=== PATIENT | female | born 1955 | race Caucasian/White ===

== ENCOUNTER 2022-06-18 14:47 | Outpatient (RCR) | payer MEDICARE, OTHER, SELFPAY ==
--- OUTSIDE RECORDS SUMMARY | 2022-03-04 13:12 | XMS_ITS | Encounter Summary ---
:1955 Author Organization [facility] Address [address] [place] [address] Care Team Providers Name Role Phone Unavailable Primary Care Provider Unavailable Reason for Referral Outpatient (Routine) - Closed Specialty Diagnoses / Procedures Referred By Contact Refer red To Contact Rheumatology Diagnoses Arthritis Rheumatoid (HCC) High Risk Medication [facility] 200 [place] [address] Referral ID Status Reason Start Date Expiration Date Visits Requ ested Visits Authorized [id number] Closed 07/06/2021 07/06/2022 1 1 RVISOR STATEMENT CLERKS Reason for Visit Outpatient (Routine) - Closed Specialty Diagnoses / Procedures Referred By Contact Refer red To Contact Rheumatology Diagnoses Arthritis Rheumatoid (HCC) High Risk Medication [facility]ung [facility] 200 [place], [place] [phone] Referral ID Status Reason Start Date Expiration Date Visits Requ ested Visits Authorized [id number] Closed 04/05/2021 04/05/2022 1 1 Encounter Details Date Type Department Care Team Description 07/06/2021 Office Visit Division of Rheumatology Tosha Leung, Arthritis Rheumatoid (HCC); in [facility] ADITHYA, C.N.PMerline, High Risk Medication [address] [facility] [place], [place] [phone] [facility] [phone] [place] [address] Social History Tobacco Use Types Packs/Day Years Used Date Smoking Tobacco: Former Cigarettes 0.8 06/1971 - 07/03/1999 Smokeless Tobacco: Never Alcohol Use Standard Drinks/Week Comments Yes 2 (1 standard drink = 0.6 oz pure alcoho l) 2 drinks per week. Alcohol Habits Answer Date Recorded How often do you have a drink containing alcohol? Monthly or less 03/03/2022 How many drinks containing alcohol do you have on a 1 or 2 03/03/2022 typical day when you are drinking? How often do you have six or more drinks on one Never 03/03/2022 occasion? Comment: 2 drinks per week. 01/03/2021 Social Isolation Answer Date Recorded In a typical week, how many times do you More than three alex es a week 03/03/2022 talk on the phone with family, friends, or neighbors? How often do you get together with friends More than three t imes a week 03/03/2022 or relatives? How often do you attend latter-day or 1 to 4 times per year 02/21 holiness services? Do you belong to any clubs or No 03/03/2022 organizations such as latter-day groups, unions, fraternal or athletic groups, or school groups? How often do you attend meetings of the Never 03/03/2022 clubs or organizations you belong to? Are you now , , , 03/03/2022 , never or living with a partner? Physical Activity Answer Date Recorded On average, how many days per week do you engage in moderate to 0 days 03/03/2022 strenuous exercise (like walking fast, running, jogging, dancing, swimming, biking, or other activities that cause a light or heavy sweat)? On average, how many minutes do you engage in exercise at th is 0 min 03/03/2022 level? Stress Answer Date Recorded Do you feel stress - tense, restless, nervous, or Only a lit tle 03/03/2022 anxious, or unable to sleep at night because your mind is troubled all the time - these days? Financial Resource Strain Answer Date Recorded How hard is it for you to pay for the very basics like Not h rossana at all 03/03/2022 food, housing, medical care, and heating? Intimate Partner Violence Answer Date Recorded Within the last year, have you been afraid of your partner o r No 03/03/2022 ex-partner? Within the last year, have you been humiliated or emotionall y No 03/03/2022 abused in other ways by your partner or ex-partner? Within the last year, have you been kicked, hit, slapped, or No 03/03/2022 otherwise physically hurt by your partner or ex-partner? Within the last year, have you been raped or forced to have any No 03/03/2022 kind of sexual activity by your partner or ex-partner? Food Insecurity Answer Date Recorded Within the past 12 months, you worried that your food would Never true 03/03/2022 run out before you got money to buy more. Within the past 12 months, the food you bought just didn't N ever true 03/03/2022 last and you didn't have money to get more. Transportation Needs Answer Date Recorded In the past 12 months, has lack of transportation kept you f rom No 03/03/2022 medical appointments or from getting medications? In the past 12 months, has lack of transportation kept you f rom No 03/03/2022 meetings, work, or getting things needed for daily living? Housing Stability Answer Date Recorded In the last 12 months, was there a time when you were not ab le No 03/03/2022 to pay the mortgage or rent on time? In the last 12 months, how many places have you lived? 1 03/03/2022 In the last 12 months, was there a time when you did not hav e a No 03/03/[address] or slept in a fpc (including now)? Education Answer Date Recorded What is the highest level of school you have completed or 12 th grade 04/07/2020 the highest degree you have received? Sex Assigned at Date Recorded Female 03/31/2021 8:17 PM CDT documented as of this encounter Last Filed Vital Signs Vital Sign Reading Time Taken Comments Blood Pressure 128/85 07/06/2021 9:13 AM SUPERVISOR STATEMENT CLERKS Pulse 75 07/06/2021 9:13 AM SUPERVISOR STATEMENT CLERKS Temperature 36.3 ??C (97.4 ??F) 07/06/2021 9:13 AM SUPERVISOR STATEMENT CLERKS Respiratory Rate - - Oxygen Saturation - - Inhaled Oxygen Concentration - - Weight 114 kg (251 lb 7 oz) 07/06/2021 9:13 AM SUPERVISOR STATEMENT CLERKS Height 177.8 cm (5' 10) 07/06/2021 9:13 AM SUPERVISOR STATEMENT CLERKS Body Mass Index 36.08 07/06/2021 9:13 AM SUPERVISOR STATEMENT CLERKS documented in this encounter Patient Instructions Patient InstructionsTosha Leung APRN, C.N.P., D.N.P. - 07/06/2021 9:30 AM CST Continue methotrexate 10 tablets weekly. Continue folic acid 1 tablet daily. New medication: Plaquenil (hydroxychloroquine) 2 tablets daily. Voltaren gel as needed. Follow up in 3 months. RVISOR STATEMENT CLERKS documented in this encounter Progress Notes Tosha Leung APRN, C.N.P., D.N.P. - 07/06/2021 9:30 AM CST SUBJECTIVE CHIEF COMPLAINT / REASON FOR VISIT Hilda Long is a 66 y.o. female who presents for follow up of rheumatoid arthritis. HISTORY OF PRESENT ILLNESS Mrs. Long was evaluated initially by Dr. Heard in March 2020 for seropositive rheumatoid arthritis. She was started on methotrexate and followed with our nursing team and the dose was gradually increased. I met her for the first time in December 2020 at which time she was doing quite well, but had been unable to taper off prednisone. I recommended maximizing methotrexate to 25 mg weekly and then trying to taper prednisone again. In March 2021, she was tolerating methotrexate 25 mg weekly. She was feeling improved. She had been able to taper off prednisone. CRP remained elevated, but we opted to not escalate treatment. She returns today for follow up. She continues to report that she feels improved overall. She is most bothered by hands and feet. Hands are stiff for the morning. 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 Bilateral, lateral hips are also bothersome at times. CRP remains elevated. She feels at times her hands are swollen as it is difficult to make a complete fist. She wonders about using Voltaren gel again as it was helpful for her hands in the past and she would like to do some crocheting again. She also has been thinking about joining the local health center that has a pool. She otherwise has been healthy and denies recent infection. She has received COVID booster. Social history: ??She lives with her who farms. 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 ??She is a previous smoker quit in 1998. She smoked for about 20 years. ??Drinks alcohol socially. Previous Reports Reviewed:lab reports, office notes and outside records The following portions of the patient's history were reviewed and updated as appropriate: allergies,current medications, family history, medical history, social history, surgical history and problem list. REVIEW OF SYSTEMS Pertinent positives and negatives as documented in the above history of present illness. Constitutional: Positive for fatigue. Eyes: Positive for visual problems. ENT: Positive for sinus congestion. Respiratory: Positive for dyspnea. Musculoskeletal: Positive for muscle pain/stiffness. Neurological: Positive for numbness or shooting pain in hands, arms, legs, or feet. The following systems were negative: Skin, CV, GI, , Hematologic, Psych OBJECTIVE PHYSICAL EXAMINATION Vitals reviewed. Constitutional Appearance: She is well-developed. Eyes Conjunctiva/sclera: Conjunctivae normal. Pupils: Pupils are equal, round, and reactive to light. Cardiovascular Rate and Rhythm: Normal rate and regular rhythm. Heart sounds: Normal heart sounds. Pulmonary Effort: Pulmonary effort is normal. Breath sounds: Normal breath sounds. Musculoskeletal Cervical back: Normal range of motion and neck supple. Comments: Right 3rd PIP is swollen, but non-tender. No other joint tenderness or synovitis. Range of motion of the extremities are within functional limits bilaterally. Lymphadenopathy Cervical: No cervical adenopathy. Skin General: Skin is warm and dry. Neurological Mental Status: She is alert and oriented to person, place, and time. Lab: Recent labs were completed locally and include a stable CBC differential, creatinine, AST. CRP is elevated at 16. ASSESSMENT / PLAN #1 Arthritis Rheumatoid (HCC) Ms. Reuvers is improved, however she does have some synovitis present in 1 joint on exam. She describes prolonged morning stiffness. CRP is elevated. We discussed the options of transitioning methotrexate to subcutaneous administration, however she would prefer to avoid that if possible. I would recommend a trial of hydroxychloroquine 400 mg daily. We discussed risks and benefits. She has an eye exam scheduled this spring she believes and will complete baseline testing with that with her local freelance writer and have those results sent to us. She may also use Voltaren gel topically to joints as needed for pain up to 4 times per day. I will plan to see her back in 3 months for reassessment. She will contact me sooner with any questions or concerns. #2 High Risk Medication Recommend every 3 months CBC with differential, creatinine, AST while taking methotrexate. We will recheck these when she returns for follow-up. I answered the patient's questions to the best of my ability. The patient seemed pleased with our interaction. If she should have any additional questions or concerns, I have asked that she contact us at that time. PATIENT EDUCATION Ready to learn, no apparent learning barriers were identified; learning preferences include listening. Explained diagnosis and treatment plan; patient expressed understanding of the content. RVISOR STATEMENT CLERKS documented in this encounter Plan of Treatment Upcoming Encounters Date Type Specialty Care Team Description 03/06/2022 Clinical Communication Admitting/Central Scheduling 03/08/2022 Office Visit Rheumatology Tosha Leung APRN, C.N.P., D.N.P. [address] [place] [phone] Scheduled Referrals Name Type Priority Associated Order Schedule Diagnoses Rheumatology office Outpatient Referral Routine Arthritis E xpected: visit (clinic) Rheumatoid (HCC) 10/04/2021 High Risk (Approximate), Medication Expires: 10/04/2022 documented as of this encounter Visit Diagnoses Diagnosis Arthritis Rheumatoid (HCC) High Risk Medication documented in this encounter
--- OUTSIDE RECORDS SUMMARY | 2022-03-04 13:12 | XMS_ITS | Clinical Summary ---
:1955 Author Organization [facility] Address [address] [place] [address] Care Team Providers Name Role Phone Unavailable Primary Care Provider Unavailable Source Comments Patient records contain information from all sites at [facility]. For routine questions regarding patient records, call [phone] during business hours, M-F 8:00 AM - 5:00 PM Central Time. Record requests for emergency care only can be directed to [phone] at any time.[facility] Allergies No known active allergies Medications Medication Sig Dispensed Refills Start Date End Date Status lisinopriL Take 20 mg by 0 04/05/2020 Acti ve (PRINIVIL,ZESTRIL) 20 mg mouth daily. tablet metoprolol succinate Take 25 mg by 0 04/05/2020 Active (TOPROL-XL) 25 mg 24 hr mouth daily. tablet simvastatin (ZOCOR) 10 Take 10 mg by 0 03/31/2020 Active mg tablet mouth at bedtime. latanoprost (XALATAN) Administer 1 0 07/01/2020 Active 0.005 % ophthalmic drop into the solution right eye every evening. diclofenac sodium Apply 4 g 50 g 3 07/06/2021 A ctive (Voltaren) 1 % gel topically 4 (four) times a day. Apply to painful joints as needed. sulfaSALAzine Take 2 tablets 120 tablet 5 10/04/2021 Active (AZULFIDINE EN-TABS) 500 (1,000 mg total) mg EC tabletIndications: by mouth 2 (two) Arthritis Rheumatoid times a day. (HCC) hydrOXYchloroQUINE Take 2 tablets 180 tablet 1 12/06/2021 Active (PLAQUENIL) 200 mg (400 mg total) tablet by mouth daily. folic acid 1 mg Take 1 tablet 90 tablet 3 12/06/2021 Active tabletIndications: (1,000 mcg Arthritis Rheumatoid total) by mouth ([facility]) daily. methotrexate 2.5 mg Take 10 tablets 120 tablet 1 12/06/2021 Active tabletIndications: (25 mg total) by 2 Arthritis Rheumatoid mouth once a ([facility]) week. Active Problems Problem Noted Date Arthritis Rheumatoid 07/19/2020 Monitoring For Therapeutic Drug Therapy 07/19/2020 Encounters Date Type Specialty Care Team Description 01/14/2022 Clinical Communication Rheumatology Tosha Leung cassandra ADITHYA Mccoy, C.N.P., D.N.P. 12/06/2021 Office Visit Rheumatology Tosha Leung High Risk Medic ation (Primary Dx); EADITHYA, Arthritis Rheum atoid ([facility]) C.N.P., D.N.P. 12/05/2021 Clinical Communication Admitting/Central Scheduling 12/03/2021 Clinical Communication Rheumatology Tosha Leung onitoring EADITHYA, (Collected 12/03) C.N.P., D.N.P. from Last 3 Months Immunizations Name Administration Dates Next Due Influenza, Quadrivalent, Adjuvanted, Preservative Free 03/28 Family History Medical History Relation Name Comments Clotting disorder Brother Manolo Finger Kidney cancer Father William Finger Prostate cancer Father William Finger Skin cancer Father William Finger Rheum arthritis Maternal Grandmother Susan Melendez Breast cancer Mother Amanda Finger Diabetes Mother Amanda Finger Diabetes Sister Vanessa Mann Obesity Sister Vanessa Mann Relation Name Status Comments Brother Manolo Finger Father William Finger Maternal Grandmother Susan Leayhl Mother Amanda Finger Sister Vanessa Mann Social History Tobacco Use Types Packs/Day Years [...] or relatives? How often do you attend hoahaoism or 1 to 4 times per year 02/21 cheondoism services? Do you belong to any clubs or No 03/03/2022 organizations such as hoahaoism groups, [employer], [employer] or athletic groups, or school groups? How [...] place to sleep or slept in a custodial (including now)? Education Answer Date Recorded What is the highest level of school you have completed or 12 th grade 04/07/2020 the highest degree you have received? Sex Assigned at Date Recorded Female 03/31/2021 8:17 PM CDT Last Filed Vital Signs Vital Sign Reading Time Taken Comments Blood Pressure 115/80 12/06/2021 11:06 AM CDT Pulse 90 12/06/2021 11:06 AM CDT Temperature 36.4 ??C (97.5 ??F) 12/06/2021 11:06 AM CDT Respiratory Rate - - Oxygen Saturation - - Inhaled Oxygen Concentration - - Weight 112 kg (247 lb 12.8 oz) 12/06/2021 11:06 AM CDT Height 177.8 cm (5' 10) 07/06/2021 9:13 AM CONTINUITY CLERK Body Mass Index 35.56 07/06/2021 9:13 AM CONTINUITY CLERK Plan of Treatment Upcoming Encounters Date Type Specialty Care Team Description 03/06/2022 Clinical Communication Admitting/Central Scheduling 03/08/2022 Office Visit Rheumatology Tosha Leung APRN, C.N.P., D.N.P. [address] [place] [phone] Health Maintenance Due Date Last Done Comments Bone Density Scan 1955 (Osteoporosis Screen) CT Colonography 1955 Cervical Cancer Screening 1955 Cologuard 1955 Colonoscopy 1955 Colorectal Cancer 1955 Surveillance Fasting Glucose for 1955 Diabetes Screening Mammogram 1955 Potassium Level 1955 Sodium Level 1955 COVID-19 Vaccine (4 - 05/08/2021 02/13/2021, 10/10/2020, Booster for Pfizer series) 09/19/2020 Depression Screening 2021 (Annual PHQ-2) Influenza Vaccine (#1) 2022 03/28/2021, 03/28/2021, 03/27/2020, Additional history exists DTaP,Tdap,and Td Vaccines 04/23/2022 04/23/2012 (2 - Td or Tdap) Creatinine Level 12/03/2022 12/03/2021, 11/07/2021, 10/01/2021, Additional history exists Pneumococcal vaccine (65+ 01/24/2023 01/24/2022, 01/20/2018 years) (3 - PPSV23 or PCV20) Zoster Vaccines Completed 12/08/2018, 01/20/2018 Fall Risk Screen (Annual) Completed 07/06/2021 HPV Vaccines Aged Out No longer eligib le based on patient 's age to complete this topic Procedures Procedure Name Priority Date/Time Associated Diagnosis Comme nts ASPARTATE AMINOTRANSFERASE Routine 12/03/2021 R esults for this (AST), S/P procedure are i n the results section. CREATININE WITH EGFR, S/P Routine 12/03/2021 Re sults for this procedure are i n the results section. CBC WITH DIFFERENTIAL, B Routine 12/03/2021 Res ults for this procedure are i n the results section. from Last 3 Months Results CBC with Differential, Blood (12/03/2021) P athologist Signature EXT Platelet 263 150 - 450 Count EXT Neutrophils 3.89 1.7 - 7 EXT Hemoglobin 13.1 12 - 15.5 EXT White Blood 5.9 5.0 - 10.0 Cell (WBC) Count Specimen (Source) Anatomical Location Collection Method / Collectio n Time Received Time / Laterality Volume Blood (Blood, Venous) Narrative This result has an attachment that is no t available. Historical Provider LAB BLOOD ADD-ON AST (Aspartate Aminotransferase) (12/03/2021) athologist Signature EXT AST 30 12 - 35 Specimen (Source) Anatomical Location Collection Method / Collectio n Time Received Time / Laterality Volume Blood (Blood, Venous) Historical Provider LAB BLOOD ADD-ON Creatinine with Estimated GFR (12/03/2021) athologist Signature EXT Creatinine 0.7 0.5 - 1.5 mg/dL Specimen (Source) Anatomical Location Collection Method / Collectio n Time Received Time / Laterality Volume Blood (Blood, Venous) Narrative This result has an attachment that is no t available. Historical Provider LAB BLOOD ADD-ON from Last 3 Months Insurance Payer Benefit Plan / Subscriber ID Effective Phone Address T ype Group Dates MEDICARE MEDICARE A AND [id number] 2021-Pres [id number] [place] [address] MEDICA MEDICA PRIME [id number] 2021-Prese [phone] [address] [employer] [address] [place] [address] (Home) [place] [phone]
--- OUTSIDE RECORDS SUMMARY | 2022-03-04 13:12 | XMS_ITS | Encounter Summary ---
:1955 Author Organization [facility] Address [address] [place] [address] Care Team Providers Name Role Phone Unavailable Primary Care Provider Unavailable Reason for Visit Reason Comments Lab Monitoring Collected 11/07/21 Encounter Details Date Type Department Care Team Description 11/07/2021 Clinical Communication Division of Tosha Leung onitoring Rheumatology in , DIRECTOR PRODUCT MANAGEMENT, (Collected ) [place], [place] C.N.P., [address] [facility] [place], [place] [address] [phone] [place] [address] Social History Tobacco Use Types Packs/Day Years [...] or relatives? How often do you attend adventist or 1 to 4 times per year 02/21 zoroastrianism services? Do you belong to any clubs or No 03/03/2022 organizations such as adventist groups, unions, fraternal or athletic groups, or [...] place to sleep or slept in a long-term (including now)? Education Answer Date Recorded What is the highest level of school you have completed or 12 th grade 04/07/2020 the highest degree you have received? Sex Assigned at Date Recorded Female 03/31/2021 8:17 PM CDT documented as of this encounter Miscellaneous Notes Telephone Encounter - Gisela Holder, L.P.N. - 11/09/2021 9:11 AM CDT ASSESSMENT Rheumatology monitoring labs completed at an external lab on 11/07/2021 were reviewed per outside labreference ranges. All monitored labs are within the reference range.. Labs reviewed: hemoglobin, leukocytes, platelets, absolute neutrophil count, AST and creatinine External labs were entered into Labs Tab and sent for scanning. PLAN Patient to continue with current plan of care. documented in this encounter Plan of Treatment Upcoming Encounters Date Type Specialty Care Team Description 03/06/2022 Clinical Communication Admitting/Central Scheduling 03/08/2022 Office Visit Rheumatology Tosha Leung, DIRECTOR PRODUCT MANAGEMENT, C.N.P., D.N.P. [address] [place] [phone] documented as of this encounter Procedures Procedure Name Priority Date/Time Associated Diagnosis Comme nts CBC WITH DIFFERENTIAL, B Routine 11/07/2021 Res ults for this procedure are i n the results section. ASPARTATE AMINOTRANSFERASE Routine 11/07/2021 R esults for this (AST), S/P procedure are i n the results section. CREATININE WITH EGFR, S/P Routine 11/07/2021 Re sults for this procedure are i n the results section. documented in this encounter Results AST (Aspartate Aminotransferase) (11/07/2021) athologist Signature EXT AST 24 12 - 35 [facility] Specimen (Source) Anatomical Location Collection Method / Collectio n Time Received Time / Laterality Volume Blood (Blood, Venous) Shelli Madden APRNN.P., D.N.P. LAB BLOOD ADD-ON Performing Organization Address [facility] [address] [place] [address] Creatinine with Estimated GFR (11/07/2021) athologist Signature EXT Creatinine 0.6 0.5 - 1.5 [place] mg/dL [facility] Specimen (Source) Anatomical Location Collection Method / Collectio n Time Received Time / Laterality Volume Blood (Blood, Venous) Narrative This result has an attachment that is no t available. Shelli Madden APRNN.P., D.N.P. LAB BLOOD ADD-ON Performing Organization Address [facility] [address] [place] [address] CBC with Differential, Blood (11/07/2021) athologist Signature EXT Platelet 236 150 - 450 [place] Count [facility] EXT Neutrophils 3.51 1.7 - 7 [facility] EXT Hemoglobin 13 12 - 15.5 [facility] EXT White Blood 5.5 5.0 - 10.0 [place] Cell (WBC) Count [facility] Specimen (Source) Anatomical Location Collection Method / Collectio n Time Received Time / Laterality Volume Blood (Blood, Venous) Narrative This result has an attachment that is no t available. Gadiel Madden APRN.N.P., D.N.P. LAB BLOOD ADD-ON Performing Organization Address [facility] [address] [place] [address], [place] [address] documented in this encounter Visit Diagnoses Not on filedocumented in this encounter
--- OUTSIDE RECORDS SUMMARY | 2022-03-04 13:12 | XMS_ITS | Encounter Summary ---
:1955 Author Organization [facility] Address [address] [place] [address] Care Team Providers Name Role Phone Unavailable Primary Care Provider Unavailable Reason for Visit Reason Comments Med Refill Encounter Details Date Type Department Care Team Description 10/02/2021 Refill Division of Rheumatology in Tosha Leung APRN, Med Refill [place], [place] C.N.P., D.N.P. [address] [facility] [address] [place] [address] [place], [place] [phone] (Wo rk) Social History Tobacco Use Types Packs/Day Years [...] or relatives? How often do you attend latter day or 1 to 4 times per year 02/21 scientologist services? Do you belong to any clubs or No 03/03/2022 organizations such as latter day groups, unions, fraternal or athletic groups, or [...] place to sleep or slept in a snf (including now)? Education Answer Date Recorded What is the highest level of school you have completed or 12 th grade 04/07/2020 the highest degree you have received? Sex Assigned at Date Recorded Female 03/31/2021 8:17 PM CDT documented as of this encounter Miscellaneous Notes Telephone Encounter - Joan Diaz R.N. - 10/09/2021 1:23 PM CDT Prescription renewal request for folic acid received from pharmacy. HISTORY OF PRESENT ILLNESS Last Rheum visit: 10/04/2021 with Tosha Leung APRN, CNP Future office visit: 12/06/2021 Last monitoring labs/eye exam: Not required. Prescription request matches current plan of care. Prescription request matches a current prescription in the Medication List. Exclusion criteria: None ASSESSMENT/PLAN Prescription request renewed per nursing protocol. documented in this encounter Plan of Treatment Upcoming Encounters Date Type Specialty Care Team Description 03/06/2022 Clinical Communication Admitting/Central Scheduling 03/08/2022 Office Visit Rheumatology Tosha Leung APRN, C.N.P., D.N.P. [address] [place] [address] documented as of this encounter Visit Diagnoses Diagnosis Arthritis Rheumatoid (HCC) - Primary documented in this encounter
--- OUTSIDE RECORDS SUMMARY | 2022-03-04 13:12 | XMS_ITS | Encounter Summary ---
:1955 Author Organization [facility] Address [address] [place] [address] Care Team Providers Name Role Phone Unavailable Primary Care Provider Unavailable Reason for Visit Reason Comments Lab Monitoring Collected 10/01/21 Encounter Details Date Type Department Care Team Description 10/02/2021 Clinical Communication Division of Tosha Leung onitoring Rheumatology in , FOOD MOBILE DRIVER, (Collected ) [place], [place] C.N.P., [address] [facility] D.N.P. [place], [place] [address] [phone] [place] [address] Social History Tobacco Use Types Packs/Day Years [...] or relatives? How often do you attend restorationism or 1 to 4 times per year 02/21 uatsdin services? Do you belong to any clubs or No 03/03/2022 organizations such as restorationism groups, unions, fraternal or athletic groups, or [...] place to sleep or slept in a care home (including now)? Education Answer Date Recorded What is the highest level of school you have completed or 12 th grade 04/07/2020 the highest degree you have received? Sex Assigned at Date Recorded Female 03/31/2021 8:17 PM CDT documented as of this encounter Miscellaneous Notes Telephone Encounter - Balbir Chilel R.N. - 10/04/2021 9:20 AM CDT ASSESSMENT Rheumatology monitoring labs completed on 10/01/21 were reviewed per Rheumatology division parameters. Labs reviewed: absolute neutrophil count, AST, creatinine, hemoglobin, leukocytes, platelets, ESR (Sed Rate), CRP (C-Reactive Protein) Labs outside parameters: CRP (C-reactive protein) External labs were entered into Labs Tab and sent for scanning. PLAN Provider notified of abnormal lab(s). documented in this encounter Plan of Treatment Upcoming Encounters Date Type Specialty Care Team Description 03/06/2022 Clinical Communication Admitting/Central Scheduling 03/08/2022 Office Visit Rheumatology Tosha Leung, ADITHYA, C.N.P., D.N.P. [address] [place] [address] documented as of this encounter Procedures Procedure Name Priority Date/Time Associated Diagnosis Comme nts SEDIMENTATION RATE, B Routine 10/01/2021 Result s for this procedure are i n the results section. CBC WITH DIFFERENTIAL, B Routine 10/01/2021 Res ults for this procedure are i n the results section. C-REACTIVE PROTEIN (CRP), Routine 10/01/2021 Re sults for this S/P procedure are i n the results section. ASPARTATE AMINOTRANSFERASE Routine 10/01/2021 R esults for this (AST), S/P procedure are i n the results section. CREATININE WITH EGFR, S/P Routine 10/01/2021 Re sults for this procedure are i n the results section. documented in this encounter Results (ABNORMAL) CRP (C-Reactive Protein) (10/01/2021) [facility] gist Method Time Signature EXT C-Reactive 13.0 (A) 5.0 - 10.0 [facility] LABORATORY Specimen (Source) Anatomical Location Collection Method / Collectio n Time Received Time / Laterality Volume Blood (Blood, Venous) Gadiel Madden APRN.N.P., D.N.P. LAB BLOOD ADD-ON Performing Organization Address City/State/[facility] Code Phon e Number [facility] [address] [place] [address] AST (Aspartate Aminotransferase) (10/01/2021) athologist Signature EXT AST 23 12 - 35 [facility] Specimen (Source) Anatomical Location Collection Method / Collectio n Time Received Time / Laterality Volume Blood (Blood, Venous) Gadiel Madden APRN.N.P., D.N.P. LAB BLOOD ADD-ON Performing Organization Address City/State/[facility] Code Phon e Number [facility] [address] [place] [address] Creatinine with Estimated GFR (10/01/2021) athologist Signature EXT Creatinine 0.7 0.5 - 1.5 [place] mg/dL [facility] Specimen (Source) Anatomical Location Collection Method / Collectio n Time Received Time / Laterality Volume Blood (Blood, Venous) Gadiel Madden APRN.N.P., D.N.P. LAB BLOOD ADD-ON Performing Organization Address City/State/ZIP Code Phon e Number [facility] [address] [place] [address] Sedimentation Rate (10/01/2021) Patholo gist Method Time Signature EXT Sedimentation 7 2 - 20 [facility] LABORATORY Specimen (Source) Anatomical Location Collection Method / Collectio n Time Received Time / Laterality Volume Blood (Blood, Venous) Gadiel Madden APRN.N.P., D.N.P. LAB BLOOD ADD-ON Performing Organization Address City/[facility] Number [facility] [address] [place] [address] CBC with Differential, Blood (10/01/2021) P athologist Signature EXT Platelet 272 150 - 450 [facility] LABORATORY EXT Neutrophils 4.61 1.7 - 7 [facility] EXT Hemoglobin 14.1 12 - 15.5 [facility] EXT White Blood 7.1 5.0 - 10.0 [place] Cell (WBC) Count [facility] Specimen (Source) Anatomical Location Collection Method / Collectio n Time Received Time / Laterality Volume Blood (Blood, Venous) Narrative This result has an attachment that is no t available. Gadiel Madden APRN.N.P., D.N.P. LAB BLOOD ADD-ON Performing Organization Address City/[facility] e Number [facility] [address] [place] [address] documented in this encounter Visit Diagnoses Not on filedocumented in this encounter
--- OUTSIDE RECORDS SUMMARY | 2022-03-04 13:12 | XMS_ITS | Encounter Summary ---
:1955 Author Organization [facility] Address [address] [place] [address] Care Team Providers Name Role Phone Unavailable Primary Care Provider Unavailable Reason for Visit Reason Comments Pre-visit Intake Left message Encounter Details Date Type Department Care Team Description 10/03/2021 Clinical Communication Division of Tosha Leung Pre-v isit Intake Rheumatology in E, PULP MILL OPERATOR, (Left messag e) [place], [place] C.N.P., [address] [facility] D.N.P. [place], [place] [address] [facility] [phone] [place] [address] Social History Tobacco Use Types Packs/Day Years [...] or relatives? How often do you attend christian or 1 to 4 times per year 02/21 caodaism services? Do you belong to any clubs or No 03/03/2022 organizations such as christian groups, unions, fraternal or athletic groups, or [...] place to sleep or slept in a retirement (including now)? Education Answer Date Recorded What is the highest level of school you have completed or 12 th grade 04/07/2020 the highest degree you have received? Sex Assigned at Date Recorded Female 03/31/2021 8:17 PM CDT documented as of this encounter Plan of Treatment Upcoming Encounters Date Type Specialty Care Team Description 03/06/2022 Clinical Communication Admitting/Central Scheduling 03/08/2022 Office Visit Rheumatology Tosha Leung, ADITHYA, C.N.P., D.N.P. [address] [place] [address] documented as of this encounter Visit Diagnoses Not on filedocumented in this encounter
--- OUTSIDE RECORDS SUMMARY | 2022-03-04 13:12 | XMS_ITS | Encounter Summary ---
:1955 Author Organization [facility] Address [address] [place] [address] Care Team Providers Name Role Phone Unavailable Primary Care Provider Unavailable Reason for Referral Outpatient (Routine) - Closed Specialty Diagnoses / Procedures Referred By Contact Refer red To Contact Rheumatology Tosha Leung APRN, C.N.P., [facility] D.N.P. [address] [place] [address] Referral ID Status Reason Start Date Expiration Date Visits Requ ested Visits Authorized [id number] Closed 10/04/2021 10/04/2022 1 1 Reason for Visit Outpatient (Routine) - Closed Specialty Diagnoses / Procedures Referred By Contact Refer red To Contact Rheumatology Diagnoses Arthritis Rheumatoid (HCC) High Risk Medication [facility] D.N.P. [address] [place], [place] [address] Referral ID Status Reason Start Date Expiration Date Visits Requ ested Visits Authorized [id number] Closed 07/06/2021 07/06/2022 1 1 Encounter Details Date Type Department Care Team Description 10/04/2021 Office Visit Division of Rheumatology Tosha Leung, Arthritis Rheumatoid (HCC); in [facility] ADITHYA, C.N.P., High Risk Medication [address] [facility] D.N[facility] [place], [place] [address] [address] [facility] [phone] [place] [address] Social History Tobacco Use Types Packs/Day Years [...] or relatives? How often do you attend rastafari or 1 to 4 times per year 02/21 sikhism services? Do you belong to any clubs or No 03/03/2022 organizations such as rastafari groups, unions, fraternal or athletic groups, or [...] place to sleep or slept in a [facility] (including now)? Education Answer Date Recorded What is the highest level of school you have completed or 12 th grade 04/07/2020 the highest degree you have received? Sex Assigned at Date Recorded Female 03/31/2021 8:17 PM CDT documented as of this encounter Last Filed Vital Signs Vital Sign Reading Time Taken Comments Blood Pressure 148/84 10/04/2021 9:16 AM CDT Pulse 80 10/04/2021 9:16 AM CDT Temperature 37 ??C (98.6 ??F) 10/04/2021 9:16 AM CDT Respiratory Rate - - Oxygen Saturation - - Inhaled Oxygen Concentration - - Weight 113 kg (250 lb) 10/04/2021 9:16 AM CDT Height - - Body Mass Index 35.87 07/06/2021 9:13 AM BRIM BUSTER documented in this encounter Patient Instructions Patient InstructionsTosha Leung APRN C.N.P., D.N.P. - 10/04/2021 9:53 AM CDT Sulfasalazine: Week 1: 1 tablet every morning Week 2: 1 tablet in the morning and 1 tablet in the evening Week 3: 2 tablets in the morning and 1 tablet in the evening Week 4: 2 tablets in the morning and 2 tablets in the evening. Insurance: Ask about next options Humira, Enbrel, Simponi, Cimzia (injectables) Remicade, Simponi Aria (infusions) Continue methotrexate and plaquenil Follow up in 2 months. documented in this encounter Progress Notes Tosha Leung APRN, C.N.P., D.N.P. - 10/04/2021 9:30 AM CDT SUBJECTIVE CHIEF COMPLAINT / REASON FOR VISIT Hilda Long is a 66 y.o. female who presents for follow up of rheumatoid arthritis. HISTORY OF PRESENT ILLNESS Mrs. Long was evaluated initially by Dr. Haerd in March 2020 for seropositive rheumatoid arthritis. She was started on methotrexate and followed with our nursing team and the dose was gradually increased. I met her for the first time in December 2020 at which time she was doing quite well, but had been unable to taper off prednisone. ??I recommended maximizing methotrexate to 25 mg weekly and then trying totaper prednisone again. ?? In March 2021, she was tolerating methotrexate 25 mg weekly. She was feeling improved. She had been able to taper off prednisone. CRP remained elevated, but we opted to not escalate treatment. In June 2021, she was improved but still had some ongoing symptoms. CRP remains elevated. We discussed transitioning methotrexate to subcutaneous administration, however her preference was to avoid that if at all possible. Therefore, we had Plaquenil 400 mg daily. She returns today for follow-up. She is tolerating hydroxychloroquine 400 mg daily. She completed baseline eye exam. She has not noted any improvement. She continues to be bothered the most by hands and feet. Joints feel full. Occasionally shoulders and hips are bothersome. Overall, she notes some impr ovement since the time she was diagnosed, specifically less pain, but she still has persistent symptoms. CRP remains elevated. No fevers or night sweats. Social history: ??She lives with her who farms. 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 ??She is a previous smoker quit in 1998. She smoked for about 20 years. ??Drinks alcohol socially. Previous Reports Reviewed:lab reports and office notes The following portions of the patient's history were reviewed and updated as appropriate: allergies,current medications, family history, medical history, social history, surgical history and problem list. REVIEW OF SYSTEMS Pertinent positives and negatives as documented in the above history of present illness. Constitutional: Positive for fatigue. Respiratory: Positive for dyspnea. Musculoskeletal: Positive for arthralgias, pain or stiffness in the joints and muscle pain/stiffness. The following systems were negative: Skin, Eyes, ENT, CV, GI, , Hematologic, Neuro, Psych OBJECTIVE PHYSICAL EXAMINATION Vitals reviewed. Constitutional Appearance: She is well-developed. Eyes Conjunctiva/sclera: Conjunctivae normal. Pupils: Pupils are equal, round, and reactive to light. Cardiovascular Rate and Rhythm: Normal rate and regular rhythm. Heart sounds: Normal heart sounds. Pulmonary Effort: Pulmonary effort is normal. Breath sounds: Normal breath sounds. Musculoskeletal Cervical back: Normal range of motion and neck supple. Comments: Scattered joint tenderness in synovitis. See detailed joint exam below. Range of motion of the extremities are within functional limits bilaterally. Lymphadenopathy Cervical: No cervical adenopathy. Skin General: Skin is warm and dry. Neurological Mental Status: She is alert and oriented to person, place, and time. Lab: Labs completed on 10/01/2021 include a stable CBC with differential, creatinine, AST. ESR is normal. CRP is improved but remains elevated at 13. Previously in June 2 was 16. ASSESSMENT / PLAN #1 Arthritis Rheumatoid (HCC) Ms. Long has ongoing symptoms. CRP remains elevated. She has joint tenderness in synovitis on exam. We discussed options of adding sulfasalazine versus TNF inhibitor. Her preference is to try sulfasalazine as the 1st step. I have provided her with instructions to gradually increase dose up to 1000 mgtwice daily. Her children both have sulfa allergies, but she is not aware of an allergy herself. [place] let me know if there are any problems. She is on Medicare, however she had a supplement insurance for prescriptions. She is going to connect with them about coverage for TNF inhibitors. I will plan to see her back in 2 months for reassessment. She will let me know sooner if she has anyquestions or concerns. #2 High Risk Medication Recommend CBC with differential, creatinine, AST every month for the 1st 3 months while starting sulfasalazine and then every 3 months as long she remains on sulfasalazine and or methotrexate. I have provided her with an updated lab letter to complete these locally. I answered the patient's questions to the best of my ability. The patient seemed pleased with our interaction. If she should have any additional questions or concerns, I have asked that she contact us at that time. PATIENT EDUCATION Ready to learn, no apparent learning barriers were identified; learning preferences include listening. Explained diagnosis and treatment plan; patient expressed understanding of the content. documented in this encounter Plan of Treatment Upcoming Encounters Date Type Specialty Care Team Description 03/06/2022 Clinical Communication Admitting/Central Scheduling 03/08/2022 Office Visit Rheumatology Tosha Leung APRN, C.N.P., D.N.P. [address] [place] [address] Scheduled Referrals Name Type Priority Associated Order Schedule Diagnoses Rheumatology office Outpatient Referral Routine E xpected: visit (clinic) 12/03/2021, Expires: 01/03/2023 documented as of this encounter Visit Diagnoses Diagnosis Arthritis Rheumatoid (HCC) High Risk Medication documented in this encounter
--- OUTSIDE RECORDS SUMMARY | 2022-03-04 13:12 | XMS_ITS | Encounter Summary ---
:1955 Author Organization [facility] Address [address] [place] [address] Care Team Providers Name Role Phone Unavailable Primary Care Provider Unavailable Reason for Visit Reason Comments Lab Monitoring Collected 12/03/21 Encounter Details Date Type Department Care Team Description 12/03/2021 Clinical Communication Division of Tosha Leung onitoring Rheumatology in , REAL ESTATE ADMINISTRATOR, (Collected ) [place], [place] C.N.P., [address] [facility] D.N.P. [place], [place] [address] [address] [place] [address] Social History Tobacco Use Types Packs/Day Years [...] or relatives? How often do you attend scientologist or 1 to 4 times per year 02/21 christianity services? Do you belong to any clubs or No 03/03/2022 organizations such as scientologist groups, unions, fraternal or athletic groups, or [...] this encounter Miscellaneous Notes Telephone Encounter - Jennifer Bazan R.N. - 12/05/2021 2:11 PM CDT ASSESSMENT Rheumatology monitoring labs completed at an external lab on 12/03/2021 were reviewed per Rheumatology division parameters. All monitored labs are within parameters. Labs reviewed: absolute neutrophil count, AST, creatinine, hemoglobin, leukocytes, platelets External labs were entered into Labs Tab and sent for scanning. PLAN Patient to continue with current plan of care. documented in this encounter Plan of Treatment Upcoming Encounters Date Type Specialty Care Team Description 03/06/2022 Clinical Communication Admitting/Central Scheduling 03/08/2022 Office Visit Rheumatology Tosha Leung APRN, C.N.P., D.N.P. [address] [place] [phone] documented as of this encounter Procedures Procedure Name Priority Date/Time Associated Diagnosis Comme nts CBC WITH DIFFERENTIAL, B Routine 12/03/2021 Res ults for this procedure are i n the results section. ASPARTATE AMINOTRANSFERASE Routine 12/03/2021 R esults for this (AST), S/P procedure are i n the results section. CREATININE WITH EGFR, S/P Routine 12/03/2021 Re sults for this procedure are i n the results section. documented in this encounter Results AST (Aspartate Aminotransferase) (12/03/2021) athologist Signature EXT AST 30 12 - 35 Specimen (Source) Anatomical Location Collection Method / Collectio n Time Received Time / Laterality Volume Blood (Blood, Venous) Historical Provider LAB BLOOD ADD-ON Creatinine with Estimated GFR (12/03/2021) athologist [facility] EXT Creatinine 0.7 0.5 - 1.5 mg/dL Specimen (Source) Anatomical Location Collection Method / Collectio n Time Received Time / Laterality Volume Blood (Blood, Venous) Narrative This result has an attachment that is no t available. Historical Provider LAB BLOOD ADD-ON CBC with Differential, Blood (12/03/2021) athologist Signature EXT Platelet 263 150 - [...] t available. Historical Provider LAB BLOOD ADD-ON documented in this encounter Visit Diagnoses Not on filedocumented in this encounter
--- OUTSIDE RECORDS SUMMARY | 2022-03-04 13:12 | XMS_ITS | Encounter Summary ---
:1955 Author Organization [facility] Address [address] [place] [address] Care Team Providers Name Role Phone Unavailable Primary Care Provider Unavailable Encounter Details Date Type Department Care Team Description 12/05/2021 Clinical Communication Visit Review in [place], [place] [address] [place], [place] [phone] Social History Tobacco Use Types Packs/Day Years [...] or relatives? How often do you attend quaker or 1 to 4 times per year 02/21 holiness services? Do you belong to any clubs or No 03/03/2022 organizations such as quaker groups, unions, fraternal or athletic groups, or [...] place to sleep or slept in a correction (including now)? Education Answer Date Recorded What [...] Tosha Leung, ADITHYA, C.N.P., D.N.P. [address] [place] [address] documented as of this encounter Visit Diagnoses Not on filedocumented in this encounter
--- OUTSIDE RECORDS SUMMARY | 2022-03-04 13:12 | XMS_ITS | Encounter Summary ---
:1955 Author Organization [facility] Address [address] [place] [address] Care Team Providers Name Role Phone Unavailable Primary Care Provider Unavailable Reason for Visit Reason Comments Labs Only Encounter Details Date Type Department Care Team Description 08/08/2021 Clinical Communication Division of Rheumatology Tosha Leung, Labs Only in [facility] todd HAJI, C.N.P., [address] [facility] [place] [address] [address] [place] [address] [place] [address] Social History Tobacco Use Types Packs/Day Years [...] or relatives? How often do you attend voodoo or 1 to 4 times per year 02/21 alevism services? Do you belong to any clubs or No 03/03/2022 organizations such as voodoo groups, unions, fraternal or athletic groups, or [...] place to sleep or slept in a [place] [facility] (including now)? Education Answer Date Recorded What is the highest level of school you have completed or 12 th grade 04/07/2020 the highest degree you have received? Sex Assigned at Date Recorded Female 03/31/2021 8:17 PM CDT documented as of this encounter Miscellaneous Notes Telephone Encounter - Beti Clark - 08/08/2021 8:49 AM CST Pre-appt lab letter was mailed to patient. TER CHARGER Telephone Encounter - Anne Marie Chambers - 08/08/2021 8:21 AM CST Pt is needing pre-appt lab letter sent. Provider: Tosha Leung Date of appt: 10/04/21 Please mail a lab letter to her home, she will carry it to her lab. ICD-10/DX: Rheumatoid Arthritis m06.9 Labs needed: AST CBC CRP Creatinine Sed rate TER CHARGER documented in this encounter Plan of Treatment Upcoming Encounters Date Type Specialty Care Team Description 03/06/2022 Clinical Communication Admitting/Central Scheduling 03/08/2022 Office Visit Rheumatology Tosha Leung, ADITHYA, C.N.P., D.N.P. [address] [place] [address] documented as of this encounter Visit Diagnoses Not on filedocumented in this encounter
--- OUTSIDE RECORDS SUMMARY | 2022-03-04 13:12 | XMS_ITS | Encounter Summary ---
:1955 Author Organization [facility] Address [address] [place] [address] Care Team Providers Name Role Phone Unavailable Primary Care Provider Unavailable Reason for Visit Reason Comments Lab letter Encounter Details Date Type Department Care Team Description 01/14/2022 Clinical Communication Division of Rheumatology Tosha Leung, Lab letter in [facility] todd HAJI, C.N.P., [address] [facility] [place] [address] [address] [place] [address] [place] [address] Social History Tobacco Use Types Packs/Day Years [...] or relatives? How often do you attend spiritism or 1 to 4 times per year 02/21 yazidism services? Do you belong to any clubs or No 03/03/2022 organizations such as spiritism groups, unions, fraternal or athletic groups, or [...] Notes Telephone Encounter - Beti Clark - 01/14/2022 3:01 PM CDT Pre-appt lab letter mailed to patient. Telephone Encounter - Lyubov Nickerson - 01/14/2022 1:20 PM CDT Caller/Authorization: Hilda Provider : Xochitl Reason for call: Lab letter Follow-up requested: Phone/Portal: Send to patient at home address Patient to see tosha on 03/08 Arthritis Rheumatoid Lab letter Request Type of letter pre appointment): Where does the letter need to go to: Mail to patients What labs are needed: Frequency: one time CBC with Differential, Blood Sedimentation Rate CRP (C-Reactive Protein) AST (Aspartate Aminotransferase) Creatinine with Estimated GFR documented in this encounter Plan of Treatment Upcoming Encounters Date Type Specialty Care Team Description 03/06/2022 Clinical Communication Admitting/Central Scheduling 03/08/2022 Office Visit Rheumatology Tosha Leung, DRY FINISHER, C.N.P., D.N.P. [address] [place] [phone] documented as of this encounter Visit Diagnoses Not on filedocumented in this encounter
--- OUTSIDE RECORDS SUMMARY | 2022-03-04 13:12 | XMS_ITS | Encounter Summary ---
:1955 Author Organization [facility] Address [address] [place] [address] Care Team Providers Name Role Phone Unavailable Primary Care Provider Unavailable Reason for Visit Reason Comments Med Refill Encounter Details Date Type Department Care Team Description 10/04/2021 Refill Division of Rheumatology in Tosha Leung APRN, Med Refill [place], [place] C.N.P., D.N.P. [address] [facility] [address] [place] [address] [place], [place] [phone] (Wo rk) Social History Tobacco Use Types [...] or relatives? How often do you attend jainism or 1 to 4 times per year 02/21 methodist services? Do you belong to any clubs or No 03/03/2022 organizations such as jainism groups, unions, fraternal or athletic groups, or [...] place to sleep or slept in a [facility] (including now)? Education Answer Date Recorded What is the highest level of school you have completed or 12 th grade 04/07/2020 the highest degree you have received? Sex Assigned at Date Recorded Female 03/31/2021 8:17 PM CDT documented as of this encounter Miscellaneous Notes Telephone Encounter - Joan Diaz R.N. - 10/11/2021 10:37 AM CDT Prescription renewal request for sulfasalazine (Azulfidine) received from pharmacy. HISTORY OF PRESENT ILLNESS Last Rheum visit: 10/04/2021 with Tosha Leung APRN, CNP Future office visit: 12/06/2021 Last monitoring labs/eye exam: new prescription will start labs per protocol Prescription request matches current plan of care. Prescription request matches a current prescription in the Medication List. Exclusion criteria: None ASSESSMENT/PLAN Prescription request denied due to duplicate Rx request. Correct pharmacy verified. documented in this encounter Plan of Treatment Upcoming Encounters Date Type Specialty Care Team Description 03/06/2022 Clinical Communication Admitting/Central Scheduling 03/08/2022 Office Visit Rheumatology Tosha Leung APRN, C.N.P., D.N.P. [address] [place] [address] documented as of this encounter Visit Diagnoses Diagnosis Arthritis Rheumatoid (HCC) documented in this encounter
--- OUTSIDE RECORDS SUMMARY | 2022-03-04 13:12 | XMS_ITS | Encounter Summary ---
:1955 Author Organization [facility] Address [address] [place] [id number] Care Team Providers Name Role Phone Unavailable Primary Care Provider Unavailable Reason for Referral Outpatient (Routine) - Authorized Specialty Diagnoses / Procedures Referred By Contact Refer red To Contact Rheumatology Diagnoses Arthritis Rheumatoid (HCC) High Risk Medication [facility] C.[facility] D.N.P. 200 [place] [address] Referral ID Status Reason Start Date Expiration Date Visits V isits Requested Authorized [id number] Authorized 12/06/2021 12/06/2022 1 1 Reason for Visit Outpatient (Routine) - Closed Specialty Diagnoses / Procedures Referred By Contact Refer red To Contact Rheumatology Tosha Leung APRN, C.N.P., [facility] D.N.P. [address] [place], [place] [address] Referral ID Status Reason Start Date Expiration Date Visits Requ ested Visits Authorized [id number] Closed 10/04/2021 10/04/2022 1 1 Encounter Details Date Type Department Care Team Description 12/06/2021 Office Visit Division of Rheumatology Tosha Leung, High Risk Medication (Primary Dx); in [facility] ADITHYA, C.N.P., Arthritis Rheumatoid (HCC) [address] [facility] D.N.P. [place], [place] [phone] [place] [address] Social History Tobacco Use Types Packs/Day Years [...] or relatives? How often do you attend yarsanism or 1 to 4 times per year 02/21 protestant services? Do you belong to any clubs or No 03/03/2022 organizations such as yarsanism groups, unions, fraternal or athletic groups, or [...] place to sleep or slept in a longterm (including now)? 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 - 12/06/2021 11:15 AM CDT SUBJECTIVE CHIEF COMPLAINT / REASON [...] she was tolerating methotrexate 25 mg weekly. ??She was feeling improved. ??She hadbeen able to taper off prednisone. CRP remained elevated, but we opted to not escalate treatment. ?? In June 2021, she was improved but still had some ongoing symptoms. CRP remains elevated. We discussed transitioning methotrexate to subcutaneous administration, however her preference was to avoid that if at all possible. Therefore, we had Plaquenil 400 mg daily. In September 2021, she continued to be bothered by hands and feet. She was improved overall since diagnosis, but had persistent symptoms. CRP remains elevated. We discussed the options of adding sulfasalazine versus TNF inhibitor. Her preference was to try sulfasalazine as the next step. She returns today for follow-up. She is currently taking methotrexate 25 mg weekly, hydroxychloroquine 400 mg daily, sulfasalazine 1000 mg twice daily, folic acid daily. She has noted since adding sulfasalazine she has less shooting pains. She reports less than 15 minutes of morning stiffness. Feet continue to feel numb. Left 5th PIP joint continues to bother at times. None of this is overly significant and in general she is improved from diagnosis. She reports she did have a slight flare in October when her shoulders were more symptomatic. She took short course of prednisone and this resolved in symptoms did not recur. She did talk with her insurance about coverage for TNF inhibitors. It sounds as though she would be responsible for a large portion. Social history: ??She lives with her who farms. 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 ??She is [...] for fatigue. Eyes: Positive for visual problems. Gastrointestinal: Positive for nausea. Musculoskeletal: Positive for back pain and muscle pain/stiffness. The following systems were negative: Skin, ENT, CV, Respiratory, , Hematologic, Neuro, Psych OBJECTIVE PHYSICAL EXAMINATION Vitals reviewed. Constitutional Appearance: She is well-developed. HENT Mouth/Throat: Mouth: Mucous membranes are moist. Pharynx: Oropharynx is clear. Eyes Conjunctiva/sclera: Conjunctivae normal. Pupils: Pupils are equal, round, and reactive to light. Cardiovascular Rate and Rhythm: Normal rate and regular rhythm. Heart sounds: Normal heart sounds. Pulmonary Effort: Pulmonary effort is normal. Breath sounds: Normal breath sounds. Musculoskeletal Cervical back: Normal range of motion and neck supple. Comments: Tenderness to the right 5th PIP joint, but without obvious synovitis. No synovitis of theupper and lower extremities including hands, wrists, elbows, knees, ankles or feet bilaterally. Range of motion of the extremities are within functional limits bilaterally. Lymphadenopathy Cervical: No cervical adenopathy. Skin General: Skin is warm and dry. Neurological Mental Status: She is alert and oriented to person, place, and time. Lab: Labs completed locally on 12/03/2021 include a stable CBC, creatinine, AST. Inflammatory markers were not drawn. ASSESSMENT / PLAN #1 Arthritis Rheumatoid (HCC) Hilda seems to be improved today. There is no synovitis on exam. Previously when I saw her a couple of months ago she did have some synovitis. She really is only bothered by her left 5th PIP joint. We discussed the possibility of intra- articular corticosteroid injection, however she would like to avoidthat if possible. We do not have inflammatory markers with her labs done recently. The plan will be to continue her current regimen of methotrexate 25 mg weekly, hydroxychloroquine 400 mg daily, sulfasalazine 1000 mg twice daily, folic acid daily. I will plan to see her back in a few months for reassessment. I have asked her to contact me sooner if she feels as though she may want an injection in the left 5th PIP joint so that we can coordinate that with her follow-up appointment. #2 High Risk Medication She has completed baseline Plaquenil monitoring. Recommend CBC with differential, creatinine, AST every 3 months while taking methotrexate and sulfasalazine. I answered the patient's questions to the [...] Tosha Leung APRN, C.N.P., D.N.P. [address] [place] [address] Scheduled Orders Name Type Priority Associated Diagnoses Order S chedule CBC with Differential, Lab Routine Arthritis Rheumato id Expected: 03/08/2022 Blood (HCC) (Approximate), High Risk Medication Expires : 12/06/2022 Sedimentation Rate Lab Routine Arthritis Rheumatoid E xpected: 03/08/2022 (HCC) (Approximate), High Risk Medication Expires : 12/06/2022 CRP (C-Reactive Protein) Lab Routine Arthritis Rheuma toid Expected: 03/08/2022 (HCC) (Approximate), High Risk Medication Expires : 12/06/2022 AST (Aspartate Lab Routine Arthritis Rheumatoid Expec cielo: 03/08/2022 Aminotransferase) ([facility]) (Approximate), High Risk Medication Expires : 12/06/2022 Creatinine with Estimated Lab Routine Arthritis Rheum atoid Expected: 03/08/2022 GFR ([facility]) (Approximate), High Risk Medication Expires : 12/06/2022 Scheduled Referrals Name Type Priority Associated Order Schedule Diagnoses Rheumatology office Outpatient Referral Routine Arthritis E xpected: visit (clinic) Rheumatoid (HCC) 03/08/2022 High Risk (Approximate), Medication Expires: 03/08/2023 documented as of this encounter Visit Diagnoses Diagnosis High Risk Medication - Primary Arthritis Rheumatoid (HCC) documented in this encounter
--- OUTSIDE RECORDS SUMMARY | 2022-03-04 13:13 | XMS_ITS | Encounter Summary ---
:1955 Author Organization [facility] Address [address] [place] [address] Care Team Providers Name Role Phone Unavailable Primary Care Provider Unavailable Reason for Visit Reason Comments Lab Monitoring 05/10 Encounter Details Date Type Department Care Team Description 05/15/2020 Clinical Division of Julianna Heard Lab Monitorin ti Communication Rheumatology in [facility] RickB.S. (05/10) [place], [place] [address] [facility] [address] [place] [phone] Social History Tobacco Use Types Packs/Day Years Used Date Smoking Tobacco: Former Cigarettes 0 0 06/1971 - 07/03/1999 Smokeless Tobacco: Never Alcohol Use Standard Drinks/Week Comments Yes 2 (1 standard drink = 0.6 oz pure alcoho l) Alcohol Habits Answer Date Recorded How often do you have a drink containing alcohol? Monthly or less 03/03/2022 How many drinks containing alcohol do you have on a 1 or 2 03/03/2022 typical day when you are drinking? How often do you have six or more drinks on one Never 03/03/2022 occasion? Comment: Not asked Social Isolation Answer Date Recorded In a typical week, how many times do you More than three alex es a week 03/03/2022 talk on the phone with family, friends, or neighbors? How often do you get together with friends More than three t imes a week 03/03/2022 or relatives? How often do you attend hoahaoism or 1 to 4 times per year 02/21 yarsani services? Do you belong to any clubs or No 03/03/2022 organizations such as hoahaoism groups, unions, fraternal or athletic groups, or [...] place to sleep or slept in a group home (including now)? Education Answer Date Recorded What is the highest level of school you have completed or 12 th grade 04/07/2020 the highest degree you have received? Sex Assigned at Date Recorded Female 03/31/2021 8:17 PM CDT documented as of this encounter Miscellaneous Notes Telephone Encounter - Gisela Holder L.P.N. - 05/15/2020 4:42 PM CST ASSESSMENT Rheumatology monitoring labs completed at an external lab on 05/10/2020 were reviewed per outside lab reference ranges. All monitored labs are within the reference range.. Labs reviewed: hemoglobin, leukocytes, platelets, absolute neutrophil count, AST and creatinine External labs were entered into Labs Tab and sent for scanning. 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 [address] [place] [address] documented as of this encounter Procedures Procedure Name Priority Date/Time Associated Diagnosis Comme nts CBC WITH DIFFERENTIAL, B Routine 05/10/2020 Res ults for this procedure are i n the results section. ALANINE AMINOTRANSFERASE Routine 05/10/2020 Res ults for this (ALT), S/P procedure are i n the results section. CREATININE WITH EGFR, S/P Routine 05/10/2020 Re sults for this procedure are i n the results section. documented in this encounter Results ALT (Alanine Aminotransferase) (05/10/2020) P athologist Signature EXT AST 28 12 - 35 Specimen (Source) Anatomical Location Collection Method / Collectio n Time Received Time / Laterality Volume Blood (Blood, Venous) Resulting Agency Comment [facility] Julianna Lebron.B.B.S. LAB BLOOD ADD-ON Creatinine with Estimated GFR (05/10/2020) athologist Signature EXT Creatinine 0.5 0.5 - 1.5 mg/dL Specimen (Source) Anatomical Location Collection Method / Collectio n Time Received Time / Laterality Volume Blood (Blood, Venous) Narrative This result has an attachment that is no t available. Resulting Agency Comment [facility] Julianna Lebron.B.B.S. LAB BLOOD ADD-ON CBC with Differential, Blood (05/10/2020) athologist Signature EXT Neutrophils 6.26 1.7 - 7 EXT Hemoglobin 14.1 12 - 15.5 EXT White Blood 8.9 5.0 - 10.0 Cell (WBC) Count Specimen (Source) Anatomical Location Collection Method / Collectio n Time Received Time / Laterality Volume Blood (Blood, Venous) Narrative This result has an attachment that is no t available. Resulting Agency Comment [facility] Julianna Lebron.B.B.S. LAB BLOOD ADD-ON documented in this encounter Visit Diagnoses Not on filedocumented in this encounter
--- OUTSIDE RECORDS SUMMARY | 2022-03-04 13:13 | XMS_ITS | Encounter Summary ---
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 [place], [place] [address] [address] [place] [address] Social History Tobacco Use Types Packs/Day Years [...] or relatives? How often do you attend methodist or 1 to 4 times per year 02/21 episcopal services? Do you belong to any clubs or No 03/03/2022 organizations such as methodist groups, unions, fraternal or athletic groups, or [...] this encounter Miscellaneous Notes Telephone Encounter - Khadijah Victor R.N. - 03/29/2021 12:32 PM CDT ASSESSMENT Rheumatology monitoring labs completed on 03/28/21 were reviewed per Rheumatology division parameters. Labs reviewed: absolute neutrophil count, AST, creatinine, hemoglobin, leukocytes, platelets, CRP (C-Reactive Protein) Labs outside parameters: CRP (C-reactive protein) External labs were entered into Labs Tab and sent for scanning. PLAN Provider notified of abnormal lab(s). documented in this encounter Plan of Treatment Upcoming Encounters Date Type Specialty Care Team Description 03/06/2022 Clinical Communication Admitting/Central Scheduling 03/08/2022 Office Visit Rheumatology Tosha Leung, STEREO EQUIPMENT SALESPERSON, C.N.P., D.N.P. [address] [place] [address] documented as of this encounter Procedures Procedure Name Priority Date/Time Associated Diagnosis Comme nts CBC WITH DIFFERENTIAL, B Routine 03/28/2021 Res ults for this procedure are i n the results section. C-REACTIVE PROTEIN (CRP), Routine 03/28/2021 Re sults for this S/P procedure are i n the results section. ASPARTATE AMINOTRANSFERASE Routine 03/28/2021 R esults for this (AST), S/P procedure are i n the results section. CREATININE WITH EGFR, S/P Routine 03/28/2021 Re sults for this procedure are i n the results section. documented in this encounter Results (ABNORMAL) CRP (C-Reactive Protein) (03/28/2021) Analysis Performed At [facility] Signature EXT C-Reactive 15.0 (A) 5.0 - 10.0 Protein Quantative Specimen (Source) Anatomical Location Collection Method / Collectio n Time Received Time / Laterality Volume Blood (Blood, Venous) Resulting Agency Comment [facility] Tosha Leung APRN, C.N.P., D.N.P. LAB BLOOD ADD-ON AST (Aspartate Aminotransferase) (03/28/2021) athologist [facility] EXT AST 24 12 - 35 Specimen (Source) Anatomical Location Collection Method / Collectio n Time Received Time / Laterality Volume Blood (Blood, Venous) Resulting Agency Comment [facility] Tosha Leung APRN, C.N.P., D.N.P. LAB BLOOD ADD-ON Creatinine with Estimated GFR (03/28/2021) athologist [facility] EXT Creatinine 0.7 0.5 - 1.5 mg/dL Specimen (Source) Anatomical Location Collection Method / Collectio n Time Received Time / Laterality Volume Blood (Blood, Venous) Narrative This result has an attachment that is no t available. Resulting Agency Comment [facility] Tosha Leung APRN, C.N.P., D.N.P. LAB BLOOD ADD-ON CBC with Differential, Blood (03/28/2021) athologist Signature EXT Platelet 302 150 - 450 Count EXT Neutrophils 5.3 1.7 - 7 EXT Hemoglobin 14.3 12 - 15.5 EXT White Blood 8.0 5.0 - 10.0 Cell (WBC) Count Specimen (Source) Anatomical Location Collection Method / Collectio n Time Received Time / Laterality Volume Blood (Blood, Venous) Narrative This result has an attachment that is no t available. Resulting Agency Comment [facility] Tosha Leung APRN, C.N.P., D.N.P. LAB BLOOD ADD-ON documented in this encounter Visit Diagnoses Not on filedocumented in this encounter
--- OUTSIDE RECORDS SUMMARY | 2022-03-04 13:13 | XMS_ITS | Encounter Summary ---
:1955 Author Organization [facility] Address [address] [place] [address] Care Team Providers Name Role Phone Unavailable Primary Care Provider Unavailable Reason for Referral Outpatient (Routine) - Closed Specialty Diagnoses / Procedures Referred By Contact Refer red To Contact Rheumatology Diagnoses Arthritis Rheumatoid (HCC) High Risk Medication Tosha Leung [facility] C.N.P., D.N.P. [address] [place] [address] Referral ID Status Reason Start Date Expiration Date Visits Requ ested Visits Authorized [id number] Closed 04/05/2021 04/05/2022 1 1 Reason for Visit Outpatient (Routine) - Closed Specialty Diagnoses / Procedures Referred By Contact Refer red To Contact Rheumatology Diagnoses Arthritis Rheumatoid (HCC) High Risk Medication Tosha Leung [facility] C.N.P., D.N.P. [address] [place], [place] [phone] Referral ID Status Reason Start Date Expiration Date Visits Requ ested Visits Authorized [id number] Closed 01/03/2021 01/03/2022 1 1 Encounter Details Date Type Department Care Team Description 04/05/2021 Office Visit Division of Rheumatology Tosha Leung, Arthritis Rheumatoid (HCC); in [facility] [place] [facility] ADITHYA, C.N.PMerline, High Risk Medication [address] [facility] D[facility] [place], [place] [address] [address] [facility] [phone] [place] [address] Social History Tobacco Use Types Packs/Day Years [...] or relatives? How often do you attend anabaptism or 1 to 4 times per year 02/21 congregational services? Do you belong to any clubs or No 03/03/2022 organizations such as anabaptism groups, unions, fraternal or athletic groups, or [...] place to sleep or slept in a detention (including now)? Education Answer Date Recorded What is the highest level of school you have completed or 12 th grade 04/07/2020 the highest degree you have received? Sex Assigned at Date Recorded Female 03/31/2021 8:17 PM CDT documented as of this encounter Last Filed Vital Signs Vital Sign Reading Time Taken Comments Blood Pressure 159/92 04/05/2021 11:06 AM CDT Pulse 91 04/05/2021 11:06 AM CDT Temperature 36.6 ??C (97.9 ??F) 04/05/2021 11:06 AM CDT Respiratory Rate - - Oxygen Saturation - - Inhaled Oxygen Concentration - - Weight 112 kg (247 lb 12.8 oz) 04/05/2021 11:06 AM CDT Height - - Body Mass Index 36 01/03/2021 9:12 AM CDT documented in this encounter Patient Instructions Patient InstructionsTosha Leung APRN, C.NGordon, D.N.P. - 04/05/2021 11:15 AM CDT No changes to medications. If you have a flare: Prednisone 20 mg daily x 3 days, then 15 mg daily x 3 days, then 10 mg daily x 3 days, then 5 mg daily x 3 days then stop. Follow up in 3 months. documented in this encounter Progress Notes Tosha Leung APRN, C.N.Del., D.N.P. - 04/05/2021 11:15 AM CDT SUBJECTIVE CHIEF COMPLAINT / REASON FOR VISIT Hilda Long is a 65 y.o. female who presents for follow up [...] and then trying to taper prednisone again. She returns today for follow up. She is tolerating the increased dose of methotrexate 25 mg weekly. She notes she feels much better. She was able to taper off prednisone without difficulty. She notes she feels like doing things. She reports morning stiffness is improved and lasting about 10 minutes. She has not had any flares. She received COVID-19 vaccine booster as well as annual influenza vaccine. Denies any infections or hospitalizations, inflammatory eye symptoms, mouth sores, hematochezia, fevers, night sweats. She will be turning 66 in June and will be going on Medicare. She plans to talk through that withan advisor. We discussed there should not be any concerns with methotrexate coverage, but if additional treatments are needed in the future we will talk through that. She has a [id number] that is oninfusions so she is familiar with that process. Social history: She lives with her who farms. 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 She is a previous smoker quit in 1998. She smoked for about 20 years. Drinks alcohol socially. Previous Reports Reviewed:lab reports and office notes The following portions of the patient's history were reviewed and updated as appropriate: allergies,current medications, family history, medical history, social history, surgical history and problem list. REVIEW OF SYSTEMS Pertinent positives and negatives as documented in the above history of present illness. Constitutional: Positive for fatigue and night sweats. Respiratory: Positive for dyspnea. Cardiovascular: Positive for swelling in the legs or feet. Musculoskeletal: Positive for arthralgias and pain or stiffness in the joints. Neurological: Positive for numbness or shooting pain in hands, arms, legs, or feet. The following systems were negative: Skin, Eyes, ENT, GI, , Hematologic, Psych OBJECTIVE PHYSICAL EXAMINATION Vitals reviewed. Constitutional Appearance: She is well-developed. Eyes Conjunctiva/sclera: Conjunctivae normal. Pupils: Pupils are equal, round, and reactive to light. Cardiovascular Rate and Rhythm: Normal rate and regular rhythm. Heart sounds: Normal heart sounds. Pulmonary Effort: Pulmonary effort is normal. Breath sounds: Normal breath sounds. Musculoskeletal Cervical back: Normal range of motion and neck supple. Comments: Some tenderness to MTP joints. No synovitis of the upper and lower extremities including hands, wrists, elbows, knees, ankles or feet bilaterally. Range of motion of the extremities are within functional limits bilaterally. Lymphadenopathy Cervical: No cervical adenopathy. Skin General: Skin is warm and dry. Neurological Mental Status: She is alert and oriented to person, place, and time. Lab: Labs completed on 03/28/2021 include a normal CBC. Creatinine and AST are normal. CRP improved,but remains elevated. ASSESSMENT / PLAN #1 Arthritis Rheumatoid (HCC) Ms. Reuvers is improved on maximum methotrexate. She is tolerating this without significant side effects. She has some mild tenderness in the MTP joints but otherwise is doing significantly better. CRP does remain elevated however. For now, will continue methotrexate 25 mg weekly along with daily folic acid supplementation. We discussed that should she have a flare, she can treat with prednisone. She prefers the least amount possible so would recommend 20 mg daily for 3 days and then decreasing by 5 mg every 3 days until off. I will plan to see her back in 3 months for reassessment. She will contact me sooner with any questions or concerns. #2 High Risk Medication Recommend every 3 months CBC with differential, creatinine, AST while taking methotrexate. We will check this again when she returns to see us in 3 months. I answered the patient's questions to the [...] Rheumatology Tosha Leung APRN, C.N.P., D.N.P. [address] [place] [phone] Scheduled Referrals Name Type Priority Associated Order Schedule Diagnoses Rheumatology office Outpatient Referral Routine Arthritis E xpected: visit (clinic) Rheumatoid (HCC) 07/06/2021 High Risk (Approximate), Medication Expires: 04/05/2024 documented as of this encounter Visit Diagnoses Diagnosis Arthritis Rheumatoid (HCC) High Risk Medication documented in this encounter
--- OUTSIDE RECORDS SUMMARY | 2022-03-04 13:13 | XMS_ITS | Encounter Summary ---
:1955 Author Organization [facility] Address [address] [place] [address] Care Team Providers Name Role Phone Unavailable Primary Care Provider Unavailable Reason for Visit Reason Comments Med Refill Encounter Details Date Type Department Care Team Description 11/08/2020 Refill Division of Rheumatology in [facility], Alex Alba, Med Refill [place], [place] M.B.B.S. [address] [facility] [address] [place] [address] [place] [address] [phone] (Wo rk) Social History Tobacco Use Types [...] or relatives? How often do you attend druze or 1 to 4 times per year 02/21 yazidi services? Do you belong to any clubs or No 03/03/2022 organizations such as druze groups, unions, fraternal or athletic groups, or [...] this encounter Miscellaneous Notes Telephone Encounter - Kelsi Maurice R.N. - 11/14/2020 11:42 AM CDT Portal message sent to patient. documented in this encounter Plan of Treatment Upcoming Encounters Date Type Specialty Care Team Description 03/06/2022 Clinical Communication Admitting/Central Scheduling 03/08/2022 Office Visit Rheumatology Tosha Leung, ADITHYA, C.N.P., D.N.P. [address] [place] [address] documented as of this encounter Visit Diagnoses Not on filedocumented in this encounter
--- OUTSIDE RECORDS SUMMARY | 2022-03-04 13:13 | XMS_ITS | Encounter Summary ---
:1955 Author Organization [facility] Address [address] [place] [address] Care Team Providers Name Role Phone Unavailable Primary Care Provider Unavailable Reason for Visit Reason Comments Lab Monitoring Collected 11/06/20 Encounter Details Date Type Department Care Team Description 11/09/2020 Clinical Division of Julianna Heard Lab Monitorin g Communication Rheumatology in Geovanna AlbaB.S. (Collected 11/06/20) [place], [place] [address] [facility] [address] [place] [phone] [phone] Social History Tobacco Use Types Packs/Day Years [...] or relatives? How often do you attend anglican or 1 to 4 times per year 02/21 worship services? Do you belong to any clubs or No 03/03/2022 organizations such as anglican groups, unions, fraternal or athletic groups, or [...] encounter Miscellaneous Notes Telephone Encounter - Khadijah Victor, R.N. - 11/09/2020 3:43 PM CDT ASSESSMENT Rheumatology Monitoring Labs completed on 11/06/20 were reviewed per Rheumatology division parameters. Labs reviewed: absolute neutrophil count, AST, creatinine, hemoglobin, leukocytes, platelets, CRP (C-Reactive Protein) absolute neutrophil count, leukocytes, CRP (C-Reactive Protein) are outside of the parameters. External labs were entered into Labs Tab and sent for scanning. PLAN Provider notified of abnormal lab(s). documented in this encounter Plan of Treatment Upcoming Encounters Date Type Specialty Care Team Description 03/06/2022 Clinical Communication Admitting/Central Scheduling 03/08/2022 Office Visit Rheumatology Tosha Leung, DRIVER EDUCATION ROAD INSTRUCTOR, C.N.P., D.N.P. [address] [place] [phone] documented as of this encounter Procedures Procedure Name Priority Date/Time Associated Diagnosis Comme nts CBC WITH DIFFERENTIAL, B Routine 11/06/2020 Res ults for this procedure are i n the results section. C-REACTIVE PROTEIN (CRP), Routine 11/06/2020 Re sults for this S/P procedure are i n the results section. ALANINE AMINOTRANSFERASE Routine 11/06/2020 Res ults for this (ALT), S/P procedure are i n the results section. CREATININE WITH EGFR, S/P Routine 11/06/2020 Re sults for this procedure are i n the results section. documented in this encounter Results (ABNORMAL) CRP (C-Reactive Protein) (11/06/2020) athologist Signature EXT C-Reactive 2.0 (A) 0.5 - 1.0 Protein Quantative Specimen (Source) Anatomical Location Collection Method / Collectio n Time Received Time / Laterality Volume Blood (Blood, Venous) Narrative This result has an attachment that is no t available. Resulting Agency Comment [facility] [employer] Parth Félix M.B.B.S. LAB BLOOD ADD-ON ALT (Alanine Aminotransferase) (11/06/2020) athologist [facility] EXT ALT 28 4 - 35 EXT AST 23 12 - 35 Specimen (Source) Anatomical Location Collection Method / Collectio n Time Received Time / Laterality Volume Blood (Blood, Venous) Resulting Agency Comment [facility] [employer] Parth Heard M.B.B.S. LAB BLOOD ADD-ON Creatinine with Estimated GFR (11/06/2020) athologist Signature EXT Creatinine 0.6 0.5 - 1.5 mg/dL Specimen (Source) Anatomical Location Collection Method / Collectio n Time Received Time / Laterality Volume Blood (Blood, Venous) Narrative This result has an attachment that is no t available. Resulting Agency Comment [facility] [employer] Parth Whitmane M.B.B.S. LAB BLOOD ADD-ON (ABNORMAL) CBC with Differential, Blood (11/06/2020) [facility] Method Time Signature EXT Platelet 280 140 - 440 Count EXT Neutrophils 9.2 (A) 1.7 - 7 EXT Hemoglobin 13.8 12 - 16 EXT White Blood 12.0 (A) 4.5 - 11.0 Cell (WBC) Count Specimen (Source) Anatomical Location Collection Method / Collectio n Time Received Time / Laterality Volume Blood (Blood, Venous) Narrative This result has an attachment that is no t available. Resulting Agency Comment [facility] Julianna Scruggs LAB BLOOD ADD-ON documented in this encounter Visit Diagnoses Not on filedocumented in this encounter
--- OUTSIDE RECORDS SUMMARY | 2022-03-04 13:13 | XMS_ITS | Encounter Summary ---
:1955 Author Organization [facility] Address [address] [place] [address] Care Team Providers Name Role Phone Unavailable Primary Care Provider Unavailable Reason for Visit Reason Comments Intake Assessment Encounter Details Date Type Department Care Team Description 07/05/2021 Clinical Communication Division of Tosha Leung Assessment Rheumatology in [place], [place] C.N.P., [address] [facility] D.N.P. [place], [place] [address] [facility] [phone] [place], [place] [phone] Social History Tobacco Use Types Packs/Day Years [...] 1 to 4 times per year 02/21 nondenominational services? Do you belong to any clubs [...] place to sleep or slept in a nursing home (including now)? Education Answer Date Recorded [...] Tosha Leung, ADITHYA, C.N.P., D.N.P. [address] [place] [address] documented as of this encounter Visit Diagnoses Not on filedocumented in this encounter
--- OUTSIDE RECORDS SUMMARY | 2022-03-04 13:13 | XMS_ITS | Encounter Summary ---
:1955 Author Organization [facility] Address [address] [place] [address] Care Team Providers Name Role Phone Unavailable Primary Care Provider Unavailable Reason for Visit Reason Comments Med Refill Encounter Details Date Type Department Care Team Description 06/10/2020 Refill Division of Rheumatology in [facility], Alex Alba, Med Refill [place], [place] M.B.B.S. [address] [facility] [address] [place] [address] [place] [address] [phone] (Wo rk) Social History Tobacco Use Types [...] 1 to 4 times per year 02/21 mandaen services? Do you belong to any clubs [...] place to sleep or slept in a senior care (including now)? Education Answer Date Recorded What is the highest level of school you have completed or 12 th grade 04/07/2020 the highest degree you have received? Sex Assigned at Date Recorded Female 03/31/2021 8:17 PM CDT documented as of this encounter Miscellaneous Notes Telephone Encounter - Balbir Chilel R.N. - 06/19/2020 4:34 PM CUSTOMER SUPPORT EXECUTIVE Filled 05/26/20, will see provider 07/19/20 OMER SUPPORT EXECUTIVE documented in this encounter Plan of Treatment Upcoming Encounters Date Type Specialty Care Team Description 03/06/2022 Clinical Communication Admitting/Central Scheduling 03/08/2022 Office Visit Rheumatology Tosha Leung, ADITHYA, C.N.P., D.N.P. [address] [place] [address] documented as of this encounter Visit Diagnoses Not on filedocumented in this encounter
--- OUTSIDE RECORDS SUMMARY | 2022-03-04 13:13 | XMS_ITS | Encounter Summary ---
:1955 Author Organization [facility] Address [address] [place] [address] Care Team Providers Name Role Phone Unavailable Primary Care Provider Unavailable Reason for Visit Appointment Request (Routine) - Closed Specialty Diagnoses / Procedures Referred By Contact Refer red To Contact Rheumatology Julianna Heard M .B.B.S. [address] [place] [address] Referral ID Status Reason Start Date Expiration Date Visits Requ ested Visits Authorized [id number] Closed 02/15/2020 02/14/2021 1 1 Encounter Details Date Type Department Care Team Description 04/14/2020 Virtual Visit Division of Julianna Heard Arthritis Rh eumatoid Rheumatology in Dominique AlbaB.B.S. ([facility]) (Primary Dx) [place], [place] [address] [facility] [address] [place] [phone] Social History Tobacco Use Types Packs/Day Years [...] or relatives? How often do you attend mosque or 1 to 4 times per year 02/21 muslim services? Do you belong to any clubs or No 03/03/2022 organizations such as mosque groups, unions, [employer]ar [employer] or athletic groups, or school groups? How [...] place to sleep or slept in a fdc (including now)? Education Answer Date Recorded What is the highest level of school you have completed or 12 th grade 04/07/2020 the highest degree you have received? Sex Assigned at Date Recorded Female 03/31/2021 8:17 PM CDT documented as of this encounter Progress Notes Julianna Heard M.B.BMerlineS. - 04/14/2020 3:30 PM CDT Rheumatology Phone Return Visit Spoke to patient over phone Ran late due to delayed previous visit, apologized for delay Discussed labs and imaging results after visit on Apr 12 Recent Results (from the past 72 hour(s)) QuantiFERON-Tb Gold Plus, Blood Collection Time: 04/12/20 10:50 AM Specimen: Blood, Venous Result Value QuantiFERON-TB Gold Plus Result Negative TB1 Ag minus Nil Result 0.00 TB2 Ag minus Nil Result 0.00 Mitogen minus Nil Result 0.81 Nil Result 0.01 CBC with Differential, Blood Collection Time: 04/12/20 10:52 AM Result Value Hemoglobin 14.3 Hematocrit 44.4 Erythrocytes 5.21 (H) MCV 85.2 RBC Distrib Width 14.2 Platelet Count 275 Leukocytes 9.2 Neutrophils 7.71 (H) Lymphocytes 1.10 Monocytes 0.33 Eosinophils <0.03 Basophils 0.04 CRP (C-Reactive Protein) Collection Time: 04/12/20 10:52 AM Result Value C-Reactive Protein (CRP), S 8.4 (H) Sedimentation Rate Collection Time: 04/12/20 10:52 AM Result Value Sedimentation Rate, B 7 AST (Aspartate Aminotransferase) Collection Time: 04/12/20 10:52 AM Result Value Aspartate Aminotransferase (AST), S 20 ALT (Alanine Aminotransferase) Collection Time: 04/12/20 10:52 AM Result Value Alanine Aminotransferase (ALT), S 23 Creatinine with Estimated GFR Collection Time: 04/12/20 10:52 AM Result Value Creatinine, S 0.77 eGFR-Non Black 82 eGFR-Black >90 Rheumatoid Factor Collection Time: 04/12/20 10:52 AM Result Value Rheumatoid Factor, S <15 Cyclic Citrullinated Peptide Antibodies, IgG Collection Time: 04/12/20 10:52 AM Result Value Cyclic Citrullinated Peptide Ab, S >250.0 (H) Antinuclear Antibodies, HEp-2 Substrate, IgG, Serum Collection Time: 04/12/20 10:52 AM Result Value Antinuclear Ab, HEp-2 Substrate, S <1:80 (Negative) Hepatitis B Surface Antigen Collection Time: 04/12/20 10:52 AM Specimen: Blood, Venous Result Value HBs Antigen, S Negative HBs Antibody, Serum Collection Time: 04/12/20 10:52 AM Specimen: Blood, Venous Result Value HBs Antibody, S Negative HBs Antibody, Quantitative, S <5.0 HBc Total Ab, Serum Collection Time: 04/12/20 10:52 AM Specimen: Blood, Venous Result Value HBc Total Ab, S Negative HCV Ab w/Reflex to HCV PCR, Serum Collection Time: 04/12/20 10:52 AM Specimen: Blood, Venous Result Value HCV Ab, S Negative 25-Hydroxyvitamin D2 and D3 Collection Time: 04/12/20 10:52 AM Result Value 25-Hydroxy D2 <4.0 25-Hydroxy D3 38 25-Hydroxy D Total 38 Calcium, Total Collection Time: 04/12/20 10:52 AM Result Value Calcium, Total, S 9.9 CK (Creatine Kinase) Collection Time: 04/12/20 10:52 AM Result Value Creatine Kinase (CK), S 165 Thyroid Function [place] Collection Time: 04/12/20 10:52 AM Result Value TSH, Sensitive, S 0.8 Antibody to Extractable Nuclear Antigen Evaluation Collection Time: 04/12/20 10:52 AM Result Value SS-A/Ro Ab, IgG, S <0.2 SS-B/La Ab, IgG, S <0.2 Sm Ab, IgG, S <0.2 SODA DRY HOUSE OPERATOR Ab, IgG, S <0.2 Scl 70 Ab, IgG, S <0.2 Kati 1 Ab, IgG, S <0.2 Miscellaneous Research, B Collection Time: 04/12/20 10:52 AM Result Value Number of Specimens 7 Hand X ray Mild degenerative arthritis involving a few joints of both hands and wrists. Slight cortical irregularity involving both 2nd metacarpal heads, greater on the left, that could be due to degenerative or erosive changes. 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 Mild scattered degenerative arthritis. No definite distinct erosions. Achilles and plantar calcaneal spurs. Plan: 1. Start methotrexate 10 mg orally weekly 2. Further uptitration per nurse protocol 3. Return in 3 months for re-evaluatoin 4. Lab monitoring locally: CBC, AST, creatinine monthly for the 1st 3 months then every 3 months after that. 5. Folic acid 1 mg daily 6. Taper prednisone: 10 mg daily for 1 week given ongoing mild synovitis/inflammatory arthritis. Then she will taper by 2.5 mg every week until off All questions addressed Time Spent: 15 minutes, > 80% counselling Electronically signed by: Geovanna JuarezB.S. 04/14/20 4:42 PM CDT documented in this encounter Plan of Treatment Upcoming Encounters Date Type Specialty Care Team Description 03/06/2022 Clinical Communication Admitting/Central Scheduling 03/08/2022 Office Visit Rheumatology Tosha Leung, ADITHYA, C.N.P., D.N.P. [address] [place] [address] documented as of this encounter Visit Diagnoses Diagnosis Arthritis Rheumatoid (HCC) - Primary documented in this encounter
--- OUTSIDE RECORDS SUMMARY | 2022-03-04 13:13 | XMS_ITS | Encounter Summary ---
:1955 Author Organization [facility] Address [address] [place] [address] Care Team Providers Name Role Phone Unavailable Primary Care Provider Unavailable Reason for Referral Outpatient (Routine) - Closed Specialty Diagnoses / Procedures Referred By Contact Refer red To Contact Rheumatology Diagnoses Arthritis Rheumatoid (HCC) High Risk Medication [facility] C[facility] D.N.P[facility] [address] [place] [phone] Referral ID Status Reason Start Date Expiration Date Visits Requ ested Visits Authorized [id number] Closed 01/03/2021 01/03/2022 1 1 Reason for Visit Outpatient (Routine) - Closed Specialty Diagnoses / Procedures Referred By Contact Refer red To Contact Rheumatology Julianna Heard M .B.B.S. [facility] [address] [place] [phone] Referral ID Status Reason Start Date Expiration Date Visits Requ ested Visits Authorized [id number] Closed 07/19/2020 07/19/2021 1 1 Encounter Details Date Type Department Care Team Description 01/03/2021 Office Visit Division of Rheumatology Tosha Leung, Arthritis Rheumatoid (HCC) (Primary Dx); in [facility] ADITHYA, C.N.P., High Risk Medication 200 [facility] [address] [address] [place] [address] [place] [address] Social History Tobacco Use Types Packs/Day Years [...] or relatives? How often do you attend religious or 1 to 4 times per year 02/21 methodist services? Do you belong to any clubs or No 03/03/2022 organizations such as religious groups, unions, fraternal or athletic groups, or [...] Sign Reading Time Taken Comments Blood Pressure 137/82 01/03/2021 9:12 AM CDT Pulse 73 01/03/2021 9:12 AM CDT Temperature 36.5 ??C (97.7 ??F) 01/03/2021 9:12 AM CDT Respiratory Rate - - Oxygen Saturation - - Inhaled Oxygen Concentration - - Weight 113 kg (248 lb 5.6 oz) 01/03/2021 9:12 AM CDT Height 176.7 cm (5' 9.57) 01/03/2021 9:12 AM CDT Body Mass Index 36.08 01/03/2021 9:12 AM CDT documented in this encounter Patient Instructions Patient InstructionsTosha Leung APRN C.N.P., D.N.P. - 01/03/2021 9:30 AM CDT Methotrexate: Increase to 9 tablets weekly (22.5 mg) for the next two weeks, then increase to 10 tablets weekly (25 mg). Continue folic acid 1 mg daily. Prednisone: Continue 5 mg daily for the next 2 weeks, then decrease to 2.5 mg daily for 2 weeks, then stop. Follow up in 3 months. Call sooner if things are not going well. documented in this encounter Progress Notes Tosha Leung APRN, C.N.P., D.N.P. - 01/03/2021 9:30 AM CDT SUBJECTIVE CHIEF COMPLAINT / REASON FOR VISIT Hilda Long is a 65 y.o. female who presents for follow up of rheumatoid arthritis. HISTORY OF PRESENT ILLNESS Mrs. Long was evaluated initially by Dr. Heard in March 2020 for seropositive rheumatoid arthritis. She was started on methotrexate and followed with our nursing team and the dose was gradually increased to 20 mg weekly. She returns today for follow up. Is currently taking methotrexate 20 mg weekly, folic acid 1 mg daily, prednisone 5 mg daily. She contacted us in November due to right shoulder pain and decreased range of motion. She was provided a prednisone burst and taper and it was suggested that she continue 5 mg daily until her appointment today. She feels quite well on prednisone 5 mg daily. She has required several prednisone burst and taper and feels that after a couple of weeks off prednisone symptoms begin torecur. Today, she reports some sensation in the right wrist but does not really describe this as pain. She has minimal morning stiffness lasting only a few minutes, as long as it takes her to walk to the bathroom. She has noted some intermittent numbness in her toes more recently. She has tried Voltaren gel for joints but this has not been helpful. Little bit of dry eyes. She has been following with her primary care provider for shortness of breath. She has had a chest x-ray, echocardiogram,pulmonary function testing which has been unrevealing. She feels this is improving. She continues to endorse ongoing fatigue. She denies any recent infections or hospitalizations, inflammatory eye symptoms, mouth sores, chest pain, diarrhea, constipation, hematochezia, skin rashes, fevers, night sweats, anorexia. Social history: She lives with her who farms. 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 She is [...] pain or stiffness in the joints and joint swelling. Neurological: Positive for light-headedness and numbness or shooting pain in hands, arms, legs, or feet. The following systems were negative: Skin, Eyes, ENT, CV, GI, , Hematologic, Psych OBJECTIVE PHYSICAL [...] range of motion and neck supple. Comments: No synovitis of the upper and lower extremities including hands, wrists, elbows, knees, ankles or feet bilaterally. Range of motion of the extremities are within functional limits bilaterally. Lymphadenopathy Cervical: No cervical adenopathy. Skin General: Skin is warm and dry. Neurological Mental Status: She is alert and oriented to person, place, and time. Lab: She completed labs locally on 11/06/2020. Those included a CBC with differential notable for mild leukocytosis and neutrophilia which was likely related to prednisone use. Creatinine and AST were normal. CRP remains slightly elevated. She did have updated labs drawn locally on 12/29/2020, however we have not yet received these results. ASSESSMENT / PLAN #1 Arthritis Rheumatoid (HCC) Hilda is doing well today, however it has been difficult to completely taper off prednisone without aflare occurring. Recommend maximizing methotrexate to 25 mg weekly. She should continue folic acid 1mg daily. I have recommended that she continue prednisone 5 mg daily for the next 2 weeks and then decrease to2.5 mg daily for 2 weeks and then stop. I will plan to see her back in 3 months for reassessment. I have encouraged her to contact me soonerwith any questions or concerns. ADDITION 12:35 p.m.: Received outside labs. Creatinine and AST are normal. CBC stable. CRP remains elevated. Will proceed with the plan outlined above. #2 High Risk Medication Recommend every 3 months CBC with differential, creatinine, AST while taking methotrexate. Will check these again when she returns to see us [...] Tosha Leung APRN, C.N.P., D.N.P. [address] [place] [address] Scheduled Referrals Name Type Priority Associated Order Schedule Diagnoses Rheumatology office Outpatient Referral Routine Arthritis E xpected: visit (clinic) Rheumatoid (HCC) 04/05/2021 High Risk (Approximate), Medication Expires: 01/04/2024 documented as of this encounter Visit Diagnoses Diagnosis Arthritis Rheumatoid (HCC) - Primary High Risk Medication documented in this encounter
--- OUTSIDE RECORDS SUMMARY | 2022-03-04 13:13 | XMS_ITS | Encounter Summary ---
:1955 Author Organization [facility] Address [address] [place] [address] Care Team Providers Name Role Phone Unavailable Primary Care Provider Unavailable Reason for Visit Reason Comments Lab Monitoring collected 06/12 Encounter Details Date Type Department Care Team Description 06/14/2020 Clinical Division of Julianna Heard Lab Monitorin ti Communication Rheumatology in [facility] (collected 06/12) [place], [place] [address] [facility] [address] [place] [phone] [phone] Social History Tobacco Use Types Packs/Day Years [...] or relatives? How often do you attend christianity or 1 to 4 times per year 02/21 moravian services? Do you belong to any clubs or No 03/03/2022 organizations such as christianity groups, unions, fraternal or athletic groups, or [...] Telephone Encounter - Khadijah Victor R.N. - 06/15/2020 12:28 PM CST ASSESSMENT Rheumatology Monitoring Labs completed on 06/12/20 were reviewed per Rheumatology division parameters. Labs reviewed: absolute neutrophil count, AST, creatinine, hemoglobin, leukocytes, platelets absolute neutrophil count, leukocytes are outside of the parameters. External labs were entered into Labs Tab and sent for scanning. PLAN Provider notified of abnormal lab(s). GER MECHANICAL MAINTENANCE documented in this encounter Plan of Treatment Upcoming Encounters Date Type Specialty Care Team Description 03/06/2022 Clinical Communication Admitting/Central Scheduling 03/08/2022 Office Visit Rheumatology Tosha Leung, ADITHYA, C.N.P., D.N.P. [address] [place] [address] documented as of this encounter Procedures Procedure Name Priority Date/Time Associated Diagnosis Comme nts CBC WITH DIFFERENTIAL, B Routine 06/12/2020 Res ults for this procedure are i n the results section. ALANINE AMINOTRANSFERASE Routine 06/12/2020 Res ults for this (ALT), S/P procedure are i n the results section. CREATININE WITH EGFR, S/P Routine 06/12/2020 Re sults for this procedure are i n the results section. documented in this encounter Results ALT (Alanine Aminotransferase) (06/12/2020) athologist Signature EXT AST 20 12 - 35 Specimen (Source) Anatomical Location Collection Method / Collectio n Time Received Time / Laterality Volume Blood (Blood, Venous) Narrative This result has an attachment that is no t available. Resulting Agency Comment [facility] Alexo Parth Heard M.B.B.S. LAB BLOOD ADD-ON Creatinine with Estimated GFR (06/12/2020) athologist Signature EXT Creatinine 0.7 0.5 - 1.5 mg/dL Specimen (Source) Anatomical Location Collection Method / Collectio n Time Received Time / Laterality Volume Blood (Blood, Venous) Resulting Agency Comment [facility] Alexo Parth Heard M.B.B.S. LAB BLOOD ADD-ON (ABNORMAL) CBC with Differential, Blood (06/12/2020[facility] Time Signature EXT Platelet 282 150 - 450 Count EXT Neutrophils 8.93 (A) 1.7 - 7 EXT Hemoglobin 14.1 12 - 15.5 EXT White Blood 11.5 (A) 5.0 - 10.0 Cell (WBC) Count Specimen (Source) Anatomical Location Collection Method / Collectio n Time Received Time / Laterality Volume Blood (Blood, Venous) Resulting Agency Comment [facility] Alexo Parth Heard M.B.B.S. LAB BLOOD ADD-ON documented in this encounter Visit Diagnoses Not on filedocumented in this encounter
--- OUTSIDE RECORDS SUMMARY | 2022-03-04 13:13 | XMS_ITS | Encounter Summary ---
:1955 Author Organization [facility] Address [address] [place] [address] Care Team Providers Name Role Phone Unavailable Primary Care Provider Unavailable Reason for Visit Reason Comments Med Refill Encounter Details Date Type Department Care Team Description 09/01/2020 Refill Division of Rheumatology in [facility], Alex Alba, Med Refill [place], [place] M.B.B.S. [address] [facility] [address] [place] [address] [place] [address] [phone] (Wo rk) Social History Tobacco Use Types [...] 1 to 4 times per year 02/21 latter-day services? Do you belong to any clubs [...] place to sleep or slept in a half-way (including now)? Education Answer Date Recorded What is the highest level of school you have completed or 12 th grade 04/07/2020 the highest degree you have received? Sex Assigned at Date Recorded Female 03/31/2021 8:17 PM CDT documented as of this encounter Miscellaneous Notes Telephone Encounter - Balbir Chilel R.N. - 09/06/2020 2:58 PM CDT Prescription renewal request for diclofenac sodium received from pharmacy. HISTORY OF PRESENT ILLNESS Last Rheum visit: 07/19/20 with SARAH Juarez Future office visit: ordered, not yet scheduled Last monitoring labs/eye exam: Not required. Prescription request matches current plan of care. Prescription request matches a current prescription in the Medication List. Exclusion criteria:None ASSESSMENT/PLAN Prescription request renewed per nursing protocol. documented in this encounter Plan of Treatment Upcoming Encounters Date Type Specialty Care Team Description 03/06/2022 Clinical Communication Admitting/Central Scheduling 03/08/2022 Office Visit Rheumatology Tosha Leung, ADITHYA, C.N.P., D.N.P. [address] [place] [address] documented as of this encounter Visit Diagnoses Not on filedocumented in this encounter
--- OUTSIDE RECORDS SUMMARY | 2022-03-04 13:13 | XMS_ITS | Encounter Summary ---
:1955 Author Organization [facility] Address [address] [place] [address] Care Team Providers Name Role Phone Unavailable Primary Care Provider Unavailable Reason for Visit Reason Comments Med Refill Encounter Details Date Type Department Care Team Description 05/05/2020 Refill Division of Rheumatology in [facility], Alex Alba, Med Refill [place], [place] M.B.B.S. [address] [facility] [address] [place] [address] [place] [address] [phone] (Wo rk) Social History Tobacco Use Types [...] or relatives? How often do you attend alevism or 1 to 4 times per year 02/21 samaritan services? Do you belong to any clubs or No 03/03/2022 organizations such as alevism groups, unions, fraternal or athletic groups, or [...] place to sleep or slept in a skilled nursing (including now)? Education Answer Date Recorded What is the highest level of school you have completed or 12 th grade 04/07/2020 the highest degree you have received? Sex Assigned at Date Recorded Female 03/31/2021 8:17 PM CDT documented as of this encounter Miscellaneous Notes Telephone Encounter - Balbir Chilel R.N. - 05/09/2020 2:55 PM DIGITAL TECH Prescription renewal request for methotrexate received from pharmacy. HISTORY OF PRESENT ILLNESS Last Rheum visit: 04/14/20 with SARAH Juarez Future office visit: ordered, not yet scheduled Last monitoring labs/eye exam: 04/12/20: outside protocol parameters. provider notes to continue meds Prescription request matches current plan of care. Prescription request matches a current prescription in the Medication List. ASSESSMENT/PLAN Prescription request renewed per nursing protocol. TAL TECH documented in this encounter Plan of Treatment Upcoming Encounters Date Type Specialty Care Team Description 03/06/2022 Clinical Communication Admitting/Central Scheduling 03/08/2022 Office Visit Rheumatology Tosha Leung, ADITHYA, C.N.P., D.N.P. [address] [place] [address] documented as of this encounter Visit Diagnoses Diagnosis Arthritis Rheumatoid (HCC) - Primary documented in this encounter
--- OUTSIDE RECORDS SUMMARY | 2022-03-04 13:13 | XMS_ITS | Encounter Summary ---
:1955 Author Organization [facility] Address [address] [place] [address] Care Team Providers Name Role Phone Unavailable Primary Care Provider Unavailable Reason for Visit Reason Comments Med Refill Encounter Details Date Type Department Care Team Description 08/11/2020 Refill Division of Rheumatology in [facility], Alex Alba, Med Refill [place], [place] M.B.B.S. [address] [facility] [address] [place] [address] [place] [address] [phone] (Wo rk) Social History Tobacco Use Types [...] or relatives? How often do you attend sikh or 1 to 4 times per year 02/21 roman catholic services? Do you belong to any clubs or No 03/03/2022 organizations such as sikh groups, unions, fraternal or athletic groups, or [...] this encounter Miscellaneous Notes Telephone Encounter - [place] R.N. - 08/28/2020 9:03 AM CST Patient was contacted about the need for refill and sent back information stating she did not need this at this time and declines this being refilled. Communicated this information to the pharmacy TRIC TRANSFER OPERATOR Telephone Encounter - Balbir Chilel R.N. - 08/14/2020 12:51 PM ELECTRIC TRANSFER OPERATOR POM sent TRIC TRANSFER OPERATOR documented in this encounter Plan of Treatment Upcoming Encounters Date Type Specialty Care Team Description 03/06/2022 Clinical Communication Admitting/Central Scheduling 03/08/2022 Office Visit Rheumatology Tosha Leung, ADITHYA, C.N.P., D.N.P. [address] [place] [address] documented as of this encounter Visit Diagnoses Not on filedocumented in this encounter
--- OUTSIDE RECORDS SUMMARY | 2022-03-04 13:13 | XMS_ITS | Encounter Summary ---
:1955 Author Organization [facility] Address [address] [place] [address] Care Team Providers Name Role Phone Unavailable Primary Care Provider Unavailable Reason for Referral Outpatient (Routine) - Closed Specialty Diagnoses / Procedures Referred By Contact Refer red To Contact Rheumatology Julianna Heard M .B.B.S. [address] [phone] Referral ID Status Reason Start Date Expiration Date Visits Requ ested Visits Authorized [id number] Closed 07/19/2020 07/19/2021 1 1 NG FRAME TENDER Reason for Visit Outpatient (Routine) - Closed Specialty Diagnoses / Procedures Referred By Contact Refer red To Contact Rheumatology Julianna Heard M .Ty.B.S. [address] [phone] Referral ID Status Reason Start Date Expiration Date Visits Requ ested Visits Authorized [id number] Closed 04/12/2020 04/12/2021 1 1 Encounter Details Date Type Department Care Team Description 07/19/2020 Office Visit Division of Julianna Heard Arthritis Rhe umatoid (HCC) (Primary Dx); Rheumatology in [facility] Monitoring For Therapeutic Drug Therapy [address] [place] [phone] Social History Tobacco Use Types Packs/Day Years [...] 1 to 4 times per year 02/21 shinto services? Do you belong to any clubs [...] Sign Reading Time Taken Comments Blood Pressure 136/83 07/19/2020 9:57 AM ROVING FRAME TENDER Pulse 90 07/19/2020 9:57 AM ROVING FRAME TENDER Temperature 36.9 ??C (98.4 ??F) 07/19/2020 9:57 AM ROVING FRAME TENDER Respiratory Rate - - Oxygen Saturation - - Inhaled Oxygen Concentration - - Weight 113 kg (248 lb 12.6 oz) 07/19/2020 9:57 AM ROVING FRAME TENDER Height - - Body Mass Index 36.18 04/12/2020 9:00 AM CDT documented in this encounter Progress Notes Julianna Heard M.B.B.S. - 07/19/2020 10:00 AM CST SUBJECTIVE CHIEF COMPLAINT / REASON FOR VISIT Hilda Long is a 65 y.o. female who presents for follow up of rheumatoid arthritis. HISTORY OF PRESENT ILLNESS Mrs. Long returns for follow-up seropositive rheumatoid arthritis (CCP greater than 250) She is doing much better. She has been followed with our nurse led methotrexate adjustment protocol. She has mild swelling joint pain but certainly significant improvement. She denies any significant morning stiffness. No longer taking prednisone oral NSAIDs. Currently on methotrexate 20 mg/8 tablets weekly. Pain score: 10/100 No mucositis, no infections REVIEW OF SYSTEMS Pertinent positives and negatives as documented in the above history of present illness. Constitutional: Positive for fatigue and weight gain of more than 10 pounds. Respiratory: Positive for dyspnea. Cardiovascular: Positive for chest pain, pressure or tightness, rapid or fluttering heart beat and pain in the calf muscles when walking. Musculoskeletal: Positive for arthralgias and pain or stiffness in the joints. Neurological: Positive for light-headedness and numbness or shooting pain in hands, arms, legs, or feet. Psychiatric/Behavioral: Positive for snores loudly. The following systems were negative: Skin, Eyes, ENT, GI, , Hematologic OBJECTIVE BP 136/83 (BP Location: Left arm, Patient Position: Sitting) Pulse 90 Temp 36.9 ??C (Tympanic) Wt 113 kg BMI 36.18 kg/m?? PHYSICAL EXAM Physical Exam General: Alert, oriented, appropriate affect, no apparent distress. Eyes: Clear conjunctivae and lids. ENT: Moist oral mucosa without mucositis. Skin: No rheumatologic rashes or ulcers. Vessels: . No edema. Joints: No synovitis of the upper and lower extremities including hands, wrists, elbows, knees, ankles or feet bilaterally. Bony hypertrophy noted. Neuro: Appropriate gait for age. Proximal and distal strength in the upper and lower extremities is grossly intact. Lab: Lab Results Component Value Date WBC 8.6 07/13/2020 HGB 14.2 07/13/2020 HCT 44.4 04/12/2020 MCV 85.2 04/12/2020 PLT 266 07/13/2020 , Lab Results Component Value Date SEDRATE 7 04/12/2020 , Lab Results Component Value Date CRP 8.4 (H) 04/12/2020 , Lab Results Component Value Date CREATININE 0.6 07/13/2020 , Lab Results Component Value Date ALT 23 04/12/2020 AST 25 07/13/2020 Disease Activity Tender joint count (0-28): 0 Swollen joint count (0-28): 0 Pain, 0-100: 10 Patient Global Assessment of Disease Activity, 0-100: 10 Provider Global Assessment, 0-100: 15 Composite Disease Activity Scores Clinical Disease Activity Index (CDAI): 2.5 ASSESSMENT / PLAN #1 Seropositive rheumatoid arthritis (CCP). Doing well #2 Hand osteoarthritis #3 Medication Monitoring #4 Health maintenance and vaccinations I discussed thoughts with patient in detail We decided to go ahead with the followin. Continue Methotrexate at 20 mg weekly 2. If needed, can increased to 10 tablets weekly/25 mg 3. Continue folic acid 4. Add topical NSAIDs/Voltaren for relief of mild joint pain 5. Monitoring labs in 3 months for methotrexate: CBC ,AST and Creatinine 6. Return Visit in 6 months (she will do labs locally for visit including ESR and CRP) 7. Discussed COVID 19 vaccine, no overt concerns/ contraindications at this time for administration with methotrexate use/autoimmune disease. She will discuss with her PCP regarding access in her community. I personally spent over half of a total 30 minutes in counseling and discussion with the patient andcoordination of care as described above. This document was prepared with voice recognition software; while reviewed prior to signature, it may contain unintended minor voice recognition errors. Julianna SMITH Management Trainee [employer] Disc Ruler Operator Rheumatology [facility] NG FRAME TENDER documented in this encounter Plan of Treatment Upcoming Encounters Date Type Specialty Care Team Description 03/06/2022 Clinical Communication Admitting/Central Scheduling 03/08/2022 Office Visit Rheumatology Tosha Leung, PREPARATION ROOM MANAGER, C.N.P., D.N.P. [address] [place] [address] Scheduled Referrals Name Type Priority Associated Order Schedule Diagnoses Rheumatology office Outpatient Referral Routine E xpected: visit (clinic) 01/16/2021 (Approximate), Expires: 07/19/2023 documented as of this encounter Visit Diagnoses Diagnosis Arthritis Rheumatoid (HCC) - Primary Monitoring For Therapeutic Drug Therapy documented in this encounter
--- OUTSIDE RECORDS SUMMARY | 2022-03-04 13:13 | XMS_ITS | Encounter Summary ---
:1955 Author Organization [facility] Address [address] [place] [address] Care Team Providers Name Role Phone Unavailable Primary Care Provider Unavailable Encounter Details Date Type Department Care Team Description 02/06/2021 Orders Only [facility] PCP [facility] Sa fantasma Nazario M.D. [address] [place], [place] [phone] (Wo rk) Social History Tobacco Use Types [...] or relatives? How often do you attend uatsdin or 1 to 4 times per year 02/21 mormon services? Do you belong to any clubs or No 03/03/2022 organizations such as uatsdin groups, unions, fraternal or athletic groups, or [...] place to sleep or slept in a residential (including now)? Education Answer Date Recorded What [...] Tosha Leung, ADITHYA, C.N.P., D.N.P. [address] [place] [address] documented as of this encounter Visit Diagnoses Not on filedocumented in this encounter
--- OUTSIDE RECORDS SUMMARY | 2022-03-04 13:13 | XMS_ITS | Encounter Summary ---
:1955 Author Organization [facility] Address [address] [place] [address] Care Team Providers Name Role Phone Unavailable Primary Care Provider Unavailable Reason for Visit Reason Comments Patient Education Methotrexate 8 Week Outpatient (Routine) - Canceled Specialty Diagnoses / Procedures Referred By Contact Refer red To Contact Video Medicine Diagnoses Medication Therapy Commercial Green Retrofit Architect Not Anticoagulant Julianna Heard [facility] M.B.B.S. [address] [place] [phone] Referral ID Status Reason Start Date Expiration Date Visits V isits Requested Authorized [id number] Canceled 05/26/2020 05/26/2021 1 1 Encounter Details Date Type Department Care Team Description 06/22/2020 Nurse Only Division of Julianna Heard, M.B.B.S. [address] [place] [phone] Patient Education Rheumatology in Khadijah Victro R.N. [address] [place] [phone] (Methotrexate 8 Week) [place], [place] [address] [place] [phone] Social History Tobacco Use Types Packs/Day Years [...] or relatives? How often do you attend anabaptist or 1 to 4 times per year 02/21 yazidi services? Do you belong to any clubs or No 03/03/2022 organizations such as anabaptist groups, unions, fraternal or athletic groups, or [...] documented as of this encounter Progress Notes Khadijah Victor, R.N. - 06/22/2020 1:00 PM CST SUBJECTIVE REASON FOR CALL Nurse visit for methotrexate follow-up and education as requested by SARAH Juarez in note dated 04/14/20. HISTORY OF PRESENT ILLNESS Hilda Long has a diagnosis of rheumatoid arthritis. SARAH Juarez requested nursing assistance with assessment for methotrexate adjustment. The patient is currently taking methotrexate 15 mg and folic acid 1 mg. Patient and/or partner is not currently planning. Patient denies an active infection or illness. ASSESSMENT / PLAN The patient reports continued inflammatory arthritis symptoms, including pain and stiffness in Left Wrist and R Big Toe. Current pain rating is 7 on a scale of 0-10, located in the R Big Toe. The pain is described as sharp,shooting. The pain occurs occasionally, comes and goes. The patient completed most recent medication monitoring labs. Labs were within Rheumatology parameters. The patient denies medication side effects. She continues on Prednisone 10mg daily. Being that she continues to have RA symptoms, we recommend that she increase her Methotrexate further to 20mg weekly. She was agreeable to this plan but wonders if further Prednisone taper is appropriate before upcoming visit or if she should hold at this dose. Will review with Dr. Heard. We reviewed methotrexate dosing, folic acid dosing, when and how to contact the Rheumatology department and importance of medication monitoring labs. SPRING II INSPECTOR documented in this encounter Plan of Treatment Upcoming Encounters Date Type Specialty Care Team Description 03/06/2022 Clinical Communication Admitting/Central Scheduling 03/08/2022 Office Visit Rheumatology Tosha Leung, ADITHYA, C.N.P., D.N.P. [address] [place] [address] documented as of this encounter Visit Diagnoses Diagnosis Arthritis Rheumatoid (HCC) documented in this encounter
--- OUTSIDE RECORDS SUMMARY | 2022-03-04 13:13 | XMS_ITS | Encounter Summary ---
:1955 Author Organization [facility] Address [address] [place] [address] Care Team Providers Name Role Phone Unavailable Primary Care Provider Unavailable Reason for Visit Reason Comments Lab Monitoring Collected 07/02/21 Encounter Details Date Type Department Care Team Description 07/04/2021 Clinical Communication Division of Tosha Leung onitoring Rheumatology in , PREPARATION CENTER COORDINATOR, (Collected ) [place], [place] C.N.P., [address] [facility] D.N.P. [place], [place] [address] [phone] [place] [address] Social History Tobacco Use Types Packs/Day Years [...] or relatives? How often do you attend taoism or 1 to 4 times per year 02/21 synagogue services? Do you belong to any clubs or No 03/03/2022 organizations such as taoism groups, unions, fraternal or athletic groups, or [...] Miscellaneous Notes Telephone Encounter - Balbir Chilel RMerlineN. - 07/11/2021 4:57 PM SHUTTLE INSPECTOR ASSESSMENT Rheumatology monitoring labs completed on 07/02/21 were reviewed per Rheumatology division parameters. Labs reviewed: absolute neutrophil count, AST, creatinine, hemoglobin, leukocytes, platelets, ESR (Sed Rate), CRP (C-Reactive Protein) Labs outside parameters: CRP (C-reactive protein) External labs were entered into Labs Tab and sent for scanning. PLAN Provider notified of abnormal lab(s). Provider noted at 07/06/21 visit TLE INSPECTOR documented in this encounter Plan of Treatment Upcoming Encounters Date Type Specialty Care Team Description 03/06/2022 Clinical Communication Admitting/Central Scheduling 03/08/2022 Office Visit Rheumatology Tosha Leung APRN, C.N.P., D.N.P. [address] [place] [address] documented as of this encounter Procedures Procedure Name Priority Date/Time Associated Diagnosis Comme nts SEDIMENTATION RATE, B Routine 07/02/2021 Result s for this procedure are i n the results section. CBC WITH DIFFERENTIAL, B Routine 07/02/2021 Res ults for this procedure are i n the results section. C-REACTIVE PROTEIN (CRP), Routine 07/02/2021 Re sults for this S/P procedure are i n the results section. ASPARTATE AMINOTRANSFERASE Routine 07/02/2021 R esults for this (AST), S/P procedure are i n the results section. CREATININE WITH EGFR, S/P Routine 07/02/2021 Re sults for this procedure are i n the results section. documented in this encounter Results (ABNORMAL) CRP (C-Reactive Protein) (07/02/2021) [facility] gist Method Time Signature EXT C-Reactive 16.0 (A) 5.0 - 10.0 [facility] LABORATORY Specimen (Source) Anatomical Location Collection Method / Collectio n Time Received Time / Laterality Volume Blood (Blood, Venous) Tosha Leung APRN, Gadiel.N.P., D.N.P. LAB BLOOD ADD-ON Performing Organization Address City/State/ZIP Code Phon e Number [facility] [address] [place] [address] AST (Aspartate Aminotransferase) (07/02/2021) athologist Signature EXT AST 26 12 - 35 [facility] Specimen (Source) Anatomical Location Collection Method / Collectio n Time Received Time / Laterality Volume Blood (Blood, Venous) Gadiel Madden APRN.N.P., D.N.P. LAB BLOOD ADD-ON Performing Organization Address City/State/ZIP Code Phon e Number [facility] [address] [place] [address] Creatinine with Estimated GFR (07/02/2021) athologist Signature EXT Creatinine 0.6 0.5 - 1.5 [place] mg/dL [facility] Specimen (Source) Anatomical Location Collection Method / Collectio n Time Received Time / Laterality Volume Blood (Blood, Venous) Narrative This result has an attachment that is no t available. Tosha Leung APRN, Gadiel.N.P., D.N.P. LAB BLOOD ADD-ON Performing Organization Address City/[facility]/ZIP Code Phon e Number [facility] [address] [place] [address] Sedimentation Rate (07/02/2021) Patholo gist Method Time Signature EXT Sedimentation 8 2 - 20 [facility] LABORATORY Specimen (Source) Anatomical Location Collection Method / Collectio n Time Received Time / Laterality Volume Blood (Blood, Venous) Tosha Leung APRN, C.N.P., Luis.N.P. LAB BLOOD ADD-ON Performing Organization Address City/[facility] Phon e Number [facility] [address] [place] [address] CBC with Differential, Blood (07/02/2021) athologist Signature EXT Platelet 286 150 - 450 [facility] LABORATORY EXT Neutrophils 6.18 1.7 - 7 [facility] EXT Hemoglobin 14.2 12 - 15.5 [facility] EXT White Blood 8.8 5.0 - 10.0 [place] Cell (WBC) [facility] LABORATORY Specimen (Source) Anatomical Location Collection Method / Collectio n Time Received Time / Laterality Volume Blood (Blood, Venous) Narrative This result has an attachment that is no t available. Shelli Madden APRNN.P., D.N.P. LAB BLOOD ADD-ON Performing Organization Address City/[facility]/ZIP [facility] Phon e Number [facility] [address] [place] [address] documented in this encounter Visit Diagnoses Not on filedocumented in this encounter
--- OUTSIDE RECORDS SUMMARY | 2022-03-04 13:13 | XMS_ITS | Encounter Summary ---
:1955 Author Organization [facility] Address [address] [place] [address] Care Team Providers Name Role Phone Unavailable Primary Care Provider Unavailable Encounter Details Date Type Department Care Team Description 10/20/2020 Orders Only Division of Rheumatology in [place], [place] M.B.B.S. [address] [facility] [address] [place] [address] [place], [place] [phone] (Wo rk) Social History Tobacco Use Types [...] 1 to 4 times per year 02/21 gnosticist services? Do you belong to any clubs [...] Tosha Leung, ADITHYA, C.N.P., D.N.P. [address] [place] [address] documented as of this encounter Visit Diagnoses Not on filedocumented in this encounter
--- OUTSIDE RECORDS SUMMARY | 2022-03-04 13:13 | XMS_ITS | Encounter Summary ---
:1955 Author Organization [facility] Address [address] [place] [address] Care Team Providers Name Role Phone Unavailable Primary Care Provider Unavailable Encounter Details Date Type Department Care Team Description 11/29/2020 Documentation Division of Rheumatology in [place], [place] M.B.B.S. [address] [facility] [address] [place] [address] [place], [place] [phone] (Wo rk) Social History Tobacco Use Types [...] or relatives? How often do you attend jewish or 1 to 4 times per year 02/21 christian services? Do you belong to any clubs or No 03/03/2022 organizations such as jewish groups, unions, fraternal or athletic groups, or [...] of this encounter Progress Notes Julianna Heard M.B.B.S. - 11/29/2020 1:40 PM CDT Rheumatology Miscellaneous Note Recent labs show mild leukocytosis of 12.0 with neutrophilia (likely prednisone) induced. Creatinine, AST and ALT normal. CRP elevated at 20 mg/L Given ongoing RA disease activity she will need combination oral DMARD therapy or adding a TNF inhibitor. Negative TB and hepatitis testing last fall She will see Tosha Leung SUPPORT SERVICES COORDINATOR next week, will work with her to help get Mrs. Long' RA under beter control Julianna SMITH documented in this encounter Plan of Treatment Upcoming Encounters Date Type Specialty Care Team Description 03/06/2022 Clinical Communication Admitting/Central Scheduling 03/08/2022 Office Visit Rheumatology Tosha Leung, ADITHYA, C.N.P., D.N.P. [address] [place] [address] documented as of this encounter Visit Diagnoses Not on filedocumented in this encounter
--- OUTSIDE RECORDS SUMMARY | 2022-03-04 13:13 | XMS_ITS | Encounter Summary ---
:1955 Author Organization [facility] Address [address] [place] [address] Care Team Providers Name Role Phone Unavailable Primary Care Provider Unavailable Reason for Visit Reason Comments Med Refill Encounter Details Date Type Department Care Team Description 08/08/2020 Refill Division of Rheumatology in [facility], Alex Alba, Med Refill [place], [place] M.B.B.S. [address] [facility] [address] [place] [address] [place] [address] [phone] (Wo rk) Social History Tobacco Use Types [...] 1 to 4 times per year 02/21 yarsanism services? Do you belong to any clubs [...] Telephone Encounter - Joan Diaz R.N. - 08/10/2020 1:48 PM TRANSPORT TECH Prescription renewal request for methotrexate received from pharmacy. HISTORY OF PRESENT ILLNESS Last Rheum visit: 07/19/2020 with SARAH Juarez Future office visit: ordered, not yet scheduled Last monitoring labs/eye exam: monitoring labs 07/13/2020: within protocol parameters. Prescription request does not match current plan of care. Prescription request does not match a current prescription in the Medication List. Exclusion criteria:None ASSESSMENT/PLAN Prescription request denied due to New prescription received 08/08/2020 by pharmacy. Patient called in an old prescription for refill.. SUBJECTIVE CHIEF COMPLAINT / REASON FOR CALL Med Refill Information Discussed Spoke with Sandra at [facility].Pharmacy did receive and filled updated prescription on 08/08/2020 Patient called request for refill on old prescription. Sandra will update her system to close out old prescription. PLAN Disposition/Recommendation: will refuse prescription request. Information/Education: not applicable Caller agreeable to plan of care: yes The following references were used: nursing clinical judgement SPORT TECH documented in this encounter Plan of Treatment Upcoming Encounters Date Type Specialty Care Team Description 03/06/2022 Clinical Communication Admitting/Central Scheduling 03/08/2022 Office Visit Rheumatology Tosha Leung APRN, C.N.P., D.N.P. [address] [place] [phone] documented as of this encounter Visit Diagnoses Diagnosis Arthritis Rheumatoid (HCC) documented in this encounter
--- OUTSIDE RECORDS SUMMARY | 2022-03-04 13:13 | XMS_ITS | Encounter Summary ---
:1955 Author Organization [facility] Address [address] [place] [address] Care Team Providers Name Role Phone Unavailable Primary Care Provider Unavailable Reason for Visit Reason Comments Intake Assessment Encounter Details Date Type Department Care Team Description 01/02/2021 Clinical Communication Division of Tosha Leung Assessment Rheumatology in [place], [place] C.N.P., [address] [facility] D.N.P. [place], [place] [address] [facility] [phone] [place], [place] [phone] Social History Tobacco Use Types Packs/Day Years [...] or relatives? How often do you attend yazidi or 1 to 4 times per year 02/21 protestant services? Do you belong to any clubs or No 03/03/2022 organizations such as yazidi groups, unions, fraternal or athletic groups, or [...] Tosha Leung, ADITHYA, C.N.P., D.N.P. [address] [place] [address] documented as of this encounter Visit Diagnoses Not on filedocumented in this encounter
--- OUTSIDE RECORDS SUMMARY | 2022-03-04 13:13 | XMS_ITS | Encounter Summary ---
:1955 Author Organization [facility] Address [address] [place] [address] Care Team Providers Name Role Phone Unavailable Primary Care Provider Unavailable Reason for Visit Reason Comments Labs Only Encounter Details Date Type Department Care Team Description 04/25/2021 Clinical Communication Division of Rheumatology Tosha Leung, Labs Only in [facility] todd HAJI, C.N.P., [address] [facility] [place] [address] [address] [place] [address] [place] [address] Social History Tobacco Use Types Packs/Day Years [...] 1 to 4 times per year 02/21 sabianist services? Do you belong to any clubs [...] Notes Telephone Encounter - Beti Clark - 04/25/2021 10:13 AM CDT Pre-appt lab letter sent to patients portal. Telephone Encounter - Hilda Santiago - 04/25/2021 9:54 AM CDT Pt is needing pre-appt lab letter sent. Provider: Tosha Leung Date of appt:07/06/2021 Outside Facility Name: Please load Lab letter into patient portal Facility Fax: ICD-10/DX: M06.9 Labs needed: CBC with Differential, Blood [PIS763] Sedimentation Rate [QBN847] CRP (C-Reactive Protein) [LRJ905] AST (Aspartate Aminotransferase) [HIV387] Creatinine with Estimated GFR [LAB66] documented in this encounter Plan of Treatment Upcoming Encounters Date Type Specialty Care Team Description 03/06/2022 Clinical Communication Admitting/Central Scheduling 03/08/2022 Office Visit Rheumatology Tosha Leung, HOME HEALTH LPN, C.N.P., D.N.P. [address] [place] [phone] documented as of this encounter Visit Diagnoses Not on filedocumented in this encounter
--- OUTSIDE RECORDS SUMMARY | 2022-03-04 13:13 | XMS_ITS | Encounter Summary ---
:1955 Author Organization [facility] Address [address] [place] [address] Care Team Providers Name Role Phone Unavailable Primary Care Provider Unavailable Reason for Visit Reason Comments Labs Only Encounter Details Date Type Department Care Team Description 02/27/2021 Clinical Communication Division of Rheumatology Tosha Leung, Labs Only in [facility] todd HAJI, C.N.P., [address] [facility] [place] [address] [address] [place] [address] [place] [address] Social History Tobacco Use Types Packs/Day Years [...] or relatives? How often do you attend mormonism or 1 to 4 times per year 02/21 evangelical services? Do you belong to any clubs or No 03/03/2022 organizations such as mormonism groups, unions, fraternal or athletic groups, or [...] Notes Telephone Encounter - Beti Clark - 02/28/2021 9:35 AM CDT Pre-appt lab letter sent to patients portal. Telephone Encounter - Hilda Santiago - 02/27/2021 3:31 PM CDT Pt is needing pre-appt lab letter sent. Provider:Tosha Leung Date of appt:04/05/2021 Outside Facility Name: Please place in patients portal Facility Fax: ICD-10/DX: M06.9 Labs needed: CBC AST CRP Creatinine with EGFR Sedimentation Rate documented in this encounter Plan of Treatment Upcoming Encounters Date Type Specialty Care Team Description 03/06/2022 Clinical Communication Admitting/Central Scheduling 03/08/2022 Office Visit Rheumatology Tosha Leung, HUMAN SERVICE TECHNICIAN, C.N.P., D.N.P. [address] [place] [address] documented as of this encounter Visit Diagnoses Not on filedocumented in this encounter
--- OUTSIDE RECORDS SUMMARY | 2022-03-04 13:13 | XMS_ITS | Encounter Summary ---
:[address] [facility] Address [address] [place] [address] Care Team Providers Name Role Phone Unavailable Primary Care Provider Unavailable Reason for Visit Reason Comments Lab Monitoring 07/13 Encounter Details Date Type Department Care Team Description 07/14/2020 Clinical Division of Julianna Heard Lab Monitorin ti Communication Rheumatology in I., Mikki.B.S. (07/13) [place], [place] [address] [facility] [address] [place] [address] [phone] Social History Tobacco Use Types Packs/Day Years [...] or relatives? How often do you attend bahai or 1 to 4 times per year 02/21 islam services? Do you belong to any clubs or No 03/03/2022 organizations such as bahai groups, unions, fraternal or athletic groups, or [...] this encounter Miscellaneous Notes Telephone Encounter - Glenda Grey M.A.N., R.N. - 07/17/2020 12:19 PM DETENTION OFFICER ASSESSMENT Rheumatology monitoring labs completed at an external lab on 07/13/20 were reviewed per Rheumatology division parameters. All monitored labs are within parameters. Labs reviewed: absolute neutrophil count, AST, creatinine, hemoglobin, leukocytes, platelets External labs were entered into Labs Tab and sent for scanning. PLAN Patient to continue with current plan of care. NTION OFFICER documented in this encounter Plan of Treatment Upcoming Encounters Date Type Specialty Care Team Description 03/06/2022 Clinical Communication Admitting/Central Scheduling 03/08/2022 Office Visit Rheumatology Tosha Leung APRN, C.N.P., D.N.P. [address] [place] [phone] documented as of this encounter Procedures Procedure Name Priority Date/Time Associated Comments Diagnosis CBC WITH DIFFERENTIAL, B Routine 07/13/2020 10:20 Results for this AM DETENTION OFFICER procedure are i n the results section. ALANINE AMINOTRANSFERASE Routine 07/13/2020 10:20 Results for this (ALT), S/P AM DETENTION OFFICER procedure are i n the results section. CREATININE WITH EGFR, Routine 07/13/2020 10:20 Re sults for this S/P AM DETENTION OFFICER procedure are i n the results section. documented in this encounter Results ALT (Alanine Aminotransferase) (07/13/2020 10:20 AM DETENTION OFFICER) athologist Signature EXT AST 25 12 - 35 Specimen (Source) Anatomical Location Collection Method / Collectio n Time Received Time / Laterality Volume Blood (Blood, Venous) Resulting Agency Comment [facility] Julianna Whitmane M.B.B.S. LAB BLOOD ADD-ON Creatinine with Estimated GFR (07/13/2020 10:20 AM DETENTION OFFICER) athologist Signature EXT Creatinine 0.6 0.5 - 1.5 mg/dL Specimen (Source) Anatomical Location Collection Method / Collectio n Time Received Time / Laterality Volume Blood (Blood, Venous) Narrative This result has an attachment that is no t available. Resulting Agency Comment [facility] Alexo Parth Heard M.B.B.S. LAB BLOOD ADD-ON CBC with Differential, Blood (07/13/2020 10:20 AM DETENTION OFFICER) athologist Signature EXT Platelet 266 150 - 450 Count EXT Neutrophils 5.85 1.7 - 7 EXT Hemoglobin 14.2 12 - 15.5 EXT White Blood 8.6 5.0 - 10.0 Cell (WBC) Count Specimen (Source) Anatomical Location Collection Method / Collectio n Time Received Time / Laterality Volume Blood (Blood, Venous) Narrative This result has an attachment that is no t available. Resulting Agency Comment [facility] Delbabaro Akash. Félix M.B.B.S. LAB BLOOD ADD-ON documented in this encounter Visit Diagnoses Not on filedocumented in this encounter
--- OUTSIDE RECORDS SUMMARY | 2022-03-04 13:13 | XMS_ITS | Encounter Summary ---
:1955 Author Organization [facility] Address [address] [place] [address] Care Team Providers Name Role Phone Unavailable Primary Care Provider Unavailable Reason for Visit Reason Comments Med Refill Encounter Details Date Type Department Care Team Description 05/04/2020 Refill Division of Rheumatology in [facility], Alex Alba, Med Refill [place], [place] M.B.B.S. [address] [facility] [address] [place] [address] [place] [address] [phone] (Wo rk) Social History Tobacco Use Types [...] 1 to 4 times per year 02/21 jehovah's witness services? Do you belong to any clubs [...] Telephone Encounter - Balbir Chilel R.N. - 05/08/2020 2:21 PM STATEMENT SERVICES REPRESENTATIVE POM sent EMENT SERVICES REPRESENTATIVE documented in this encounter Plan of Treatment Upcoming Encounters Date Type Specialty Care Team Description 03/06/2022 Clinical Communication Admitting/Central Scheduling 03/08/2022 Office Visit Rheumatology Tosha Leung, ADITHYA, C.N.P., D.N.P. [address] [place] [address] documented as of this encounter Visit Diagnoses Not on filedocumented in this encounter
--- OUTSIDE RECORDS SUMMARY | 2022-03-04 13:13 | XMS_ITS | Encounter Summary ---
:1955 Author Organization [facility] Address [address] [place] [address] Care Team Providers Name Role Phone Unavailable Primary Care Provider Unavailable Reason for Visit Reason Comments Previsit Preparation Encounter Details Date Type Department Care Team Description 04/03/2021 Clinical Communication Division of Tosha Leung Rheumatology in [place], CONSULTING SYSTEMS ENGINEER, Preparation [place], [place] C.N.P., [address] [facility] D.N.P. [place], [place] [address] [place] [address] Social History Tobacco Use Types Packs/Day Years [...] Tosha Leung, ADITHYA, C.N.P., D.N.P. [address] [place] [address] documented as of this encounter Visit Diagnoses Not on filedocumented in this encounter
--- OUTSIDE RECORDS SUMMARY | 2022-03-04 13:13 | XMS_ITS | Encounter Summary ---
:1955 Author Organization [facility] Address [address] [place] [address] Care Team Providers Name Role Phone Unavailable Primary Care Provider Unavailable Encounter Details Date Type Department Care Team Description 04/12/2020 Education Division of Julianna Heard Arthritis Rhe umatoid NOS; Rheumatology in [place] Corticosteroid Treatment Wheel Mill Operator Syste [place], [place] [address] [facility] [address] [place] [phone] Social History Tobacco Use Types Packs/Day Years [...] or relatives? How often do you attend shinto or 1 to 4 times per year 02/21 jehovah's witness services? Do you belong to any clubs or No 03/03/2022 organizations such as shinto groups, unions, fraternal or athletic groups, or [...] place to sleep or slept in a halfway (including now)? Education Answer Date Recorded What [...] Tosha Leung, ADITHYA, C.N.P., D.N.P. [address] [place] [address] documented as of this encounter Visit Diagnoses Diagnosis Arthritis Rheumatoid NOS Corticosteroid Treatment Residential Syste marie documented in this encounter
--- OUTSIDE RECORDS SUMMARY | 2022-03-04 13:13 | XMS_ITS | Encounter Summary ---
:1955 Author Organization [facility] Address [address] [place] [address] Care Team Providers Name Role Phone Unavailable Primary Care Provider Unavailable Reason for Visit Reason Comments Lab Monitoring Collected 12/29/20 Encounter Details Date Type Department Care Team Description 01/12/2021 Clinical Communication Division of Tosha Leung onitoring Rheumatology in , GYNECOLOGICAL ASSISTANT, (Collected ) [place], [place] C.N.P., [address] [facility] D.N.P[facility] [place], [place] [address] [phone] [place] [address] Social History Tobacco Use Types Packs/Day Years [...] or relatives? How often do you attend adventism or 1 to 4 times per year 02/21 evangelical services? Do you belong to any clubs or No 03/03/2022 organizations such as adventism groups, unions, fraternal or athletic groups, or [...] place to sleep or slept in a intermediate (including now)? Education Answer Date Recorded What is the highest level of school you have completed or 12 th grade 04/07/2020 the highest degree you have received? Sex Assigned at Date Recorded Female 03/31/2021 8:17 PM CDT documented as of this encounter Miscellaneous Notes Telephone Encounter - Khadijah Victor RMerlineN. - 01/15/2021 10:29 AM CDT ASSESSMENT Rheumatology monitoring labs completed on 12/29/20 were reviewed per Rheumatology division parameters. Labs [...] Tosha Leung, ADITHYA, C.N.P., D.N.P. [address] [place] [address] documented as of this encounter Procedures Procedure Name Priority Date/Time Associated Diagnosis Comme nts SEDIMENTATION RATE, B Routine 12/29/2020 Result s for this procedure are i n the results section. CBC WITH DIFFERENTIAL, B Routine 12/29/2020 Res ults for this procedure are i n the results section. C-REACTIVE PROTEIN (CRP), Routine 12/29/2020 Re sults for this S/P procedure are i n the results section. ALANINE AMINOTRANSFERASE Routine 12/29/2020 Res ults for this (ALT), S/P procedure are i n the results section. CREATININE WITH EGFR, S/P Routine 12/29/2020 Re sults for this procedure are i n the results section. documented in this encounter Results (ABNORMAL) CRP (C-Reactive Protein) (12/29/2020) Analysis Performed At [facility] Time Signature EXT C-Reactive 19.0 (A) 5.0 - 10.0 Protein Quantative Specimen (Source) Anatomical Location Collection Method / Collectio n Time Received Time / Laterality Volume Blood (Blood, Venous) Resulting Agency Comment [facility] Tosha Leung APRN, C.N.P., D.N.P. LAB BLOOD ADD-ON ALT (Alanine Aminotransferase) (12/29/2020) athologist Signature EXT AST 21 12 - 35 Specimen (Source) Anatomical Location Collection Method / Collectio n Time Received Time / Laterality Volume Blood (Blood, Venous) Resulting Agency Comment [facility] Tosha Leung APRN, C.N.P., D.N.P. LAB BLOOD ADD-ON Creatinine with Estimated GFR (12/29/2020) athologist Signature EXT Creatinine 0.7 0.5 - 1.5 mg/dL Specimen (Source) Anatomical Location Collection Method / Collectio n Time Received Time / Laterality Volume Blood (Blood, Venous) Narrative This result has an attachment that is no t available. Resulting Agency Comment [facility] Tosha Leung APRN, C.N.P., D.N.P. LAB BLOOD ADD-ON Sedimentation Rate (12/29/2020) Analysis Performed At [facility] Signature EXT Sedimentation 6 2 - 20 Rate Specimen (Source) Anatomical Location Collection Method / Collectio n Time Received Time / Laterality Volume Blood (Blood, Venous) Resulting Agency Comment [facility] Gadiel Madden APRN.N.P., D.N.P. LAB BLOOD ADD-ON (ABNORMAL) CBC with Differential, Blood (12/29/2020) [facility] gist Method Time Signature EXT Platelet 245 150 - 450 Count EXT Neutrophils 7.51 (A) 1.7 - 7 EXT Hemoglobin 14 12 - 15.5 EXT White Blood 10.4 (A) 5.0 - 10.0 Cell (WBC) Count Specimen (Source) Anatomical Location Collection Method / Collectio n Time Received Time / Laterality Volume Blood (Blood, Venous) Narrative This result has an attachment that is no t available. Resulting Agency Comment [facility] Gadiel Madden APRN.N.P., D.N.P. LAB BLOOD ADD-ON documented in this encounter Visit Diagnoses Not on filedocumented in this encounter
--- OUTSIDE RECORDS SUMMARY | 2022-03-04 13:13 | XMS_ITS | Encounter Summary ---
:1955 Author Organization [facility] Address [address] [place] [address] Care Team Providers Name Role Phone Unavailable Primary Care Provider Unavailable Reason for Visit Reason Comments Intake Assessment Encounter Details Date Type Department Care Team Description 07/18/2020 Clinical Communication Division of Julianna Heard Assessment [place]umatology [place], [place] [address] [facility] [address] [place] [phone] Social History Tobacco Use Types Packs/Day Years [...] or relatives? How often do you attend zoroastrian or 1 to 4 times per year 02/21 christian services? Do you belong to any clubs or No 03/03/2022 organizations such as zoroastrian groups, unions, fraternal or athletic groups, or [...] Rheumatology Tosha Leung, ADITHYA, C.N.P., D.N.P. [address] [place] [phone] documented as of this encounter Visit Diagnoses Not on filedocumented in this encounter
--- OUTSIDE RECORDS SUMMARY | 2022-03-04 13:14 | XMS_ITS | Encounter Summary ---
:1955 Author Organization [facility] Address [address] [place] [address] Care Team Providers Name Role Phone Unavailable Primary Care Provider Unavailable Encounter Details Date Type Department Care Team Description 04/12/2020 Orders Only Division of Rheumatology in [place], [place] [address] [place] [address] Social History Tobacco Use Types Packs/Day Years [...] or relatives? How often do you attend scientology or 1 to 4 times per year 02/21 tenriism services? Do you belong to any clubs or No 03/03/2022 organizations such as scientology groups, unions, fraternal or athletic groups, or [...] Tosha Leung, ADITHYA, C.N.P., D.N.P. [address] [place] [address] documented as of this encounter Visit Diagnoses Not on filedocumented in this encounter
--- OUTSIDE RECORDS SUMMARY | 2022-03-04 13:14 | XMS_ITS | Encounter Summary ---
:1955 Author Organization [facility] Address [address] [place] [address] Care Team Providers Name Role Phone Unavailable Primary Care Provider Unavailable Encounter Details Date Type Department Care Team Description 04/12/2020 Hospital Encounter Department of Julianna Heard tis Rheumatoid NOS; Radiology, Kael Silveira Corticosteroid Treatment [facility], [place] [address] [place] [phone] [place] [address] [place], [place] (Work) [phone] Social History Tobacco Use Types Packs/Day Years [...] or relatives? How often do you attend taoist or 1 to 4 times per year 02/21 pentecostal services? Do you belong to any clubs or No 03/03/2022 organizations such as taoist groups, unions, fraternal or athletic groups, or [...] PM CDT documented as of this encounter Medications at Time of Discharge Medication Sig Dispensed Refills Start Date End Date lisinopriL Take 20 mg by mouth 0 04/05/2020 (PRINIVIL,ZESTRIL) 20 mg daily. tablet metoprolol succinate Take 25 mg by mouth 0 2019 (TOPROL-XL) 25 mg 24 hr daily. tablet simvastatin (ZOCOR) 10 mg Take 10 mg by mouth 0 1 tablet at bedtime. naproxen (NAPROSYN) 500 mg Take 500 mg by 0 01/3107/18/2020 tablet mouth 2 (two) times a day with meals. predniSONE (DELTASONE) 20 Take 20 mg by mouth 0 1 04/14/2020 mg tablet daily. documented as of this encounter Plan of Treatment Upcoming Encounters Date Type Specialty Care Team Description 03/06/2022 Clinical Communication Admitting/Central Scheduling 03/08/2022 Office Visit Rheumatology Tosha Leung, ADITHYA, C.N.P., D.N.P. [address] [place] [address] documented as of this encounter Procedures Procedure Name Priority Date/Time Associated Comments Diagnosis DX HAND BILATERAL RAD - Routine 04/12/2020 11:48 Arthritis Resul ts for this 3 VIEWS (most inpatients AM CDT Rheumatoid NOS procedure are in and all Corticosteroid the results outpatients) Treatment Long section. 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 Slight cortical irregularity involving both 2nd metacarpal heads, greater on the left, that could be due t o degenerative or erosive changes. Narrative 04/12/2020 11:52 AM CDT EXAM: ??DX HAND BILATERAL 3 VIEWS Procedure Note Yamileth Lynn M.D. - 04/12/2020Format ting of this note might be different from the original. 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 Slight cortical irregularity involving both 2nd metacarpal heads, greater on the left, that could be due t o degenerative or erosive changes. 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
--- OUTSIDE RECORDS SUMMARY | 2022-03-04 13:14 | XMS_ITS | Encounter Summary ---
:1955 Author Organization [facility] Address [address] [place] [address] Care Team Providers Name Role Phone Unavailable Primary Care Provider Unavailable Encounter Details Date Type Department Care Team Description 04/12/2020 Orders Only Division of Jennifer Madrigal Arthritis Rheumatoid Rheumatology in A ([facility]) (Primary Dx) [place], [place] [address] [facility] [address] [place] [phone] Social History Tobacco Use Types Packs/Day Years [...] 1 to 4 times per year 02/21 pentecostalism services? Do you belong to any clubs [...] Scheduling 03/08/2022 Office Visit Rheumatology Tosha Leung, NETWORK SYSTEMS INTEGRATOR, C.N.P., D.N.P. [address] [place] [address] documented as of this encounter Results Miscellaneous Research, B (04/12/2020 10:52 AM CDT) P athologist Signature Number of 7 04/12/2020 [facility] Specimens 10:52 AM CDT Specimen Anatomical Collection Method Collection Time Receive d Time (Source) Location / / Volume Laterality Varies (Blood, 04/12/2020 10:52 0 Venous) AM CDT 10:52 AM CDT Romero Mckeon III, M.D. LAB RESEARCH NO RESULT JOEY IBARRA Performing Organization Address City/State/ZIP Code Phon e Number [facility] - [address] [place], [place] [address] [facility] [place] [address] [facility] [address] [facility] documented in this encounter Visit Diagnoses Diagnosis Arthritis Rheumatoid (HCC) - Primary documented in this encounter
--- OUTSIDE RECORDS SUMMARY | 2022-03-04 13:14 | XMS_ITS | Encounter Summary ---
:1955 Author Organization [facility] Address [address] [place] [address] Care Team Providers Name Role Phone Unavailable Primary Care Provider Unavailable Encounter Details Date Type Department Care Team Description 04/12/2020 Hospital Encounter Department of Julianna Heard tis Rheumatoid NOS; Laboratory Medicine Geovanna AlbaBMerlineSMerline Corticosteroid Treatment Log Marker Syste marie; and Pathology, [address] [place] [address] Arthritis Rheumatoid (HCC) [facility] in [facility] [address] [place] [phone] [place] [address] (Work) [place], [place] [phone] (Fax) [phone] Social History Tobacco Use Types Packs/Day Years [...] or relatives? How often do you attend faith or 1 to 4 times per year 02/21 protestant services? Do you belong to any clubs or No 03/03/2022 organizations such as faith groups, unions, fraternal or athletic groups, or [...] Rheumatology Tosha Leung, ADITHYA, C.N.P., D.N.P. [address] [place] [id number] documented as of this encounter Procedures Procedure Name Priority Date/Time Associated Comments Diagnosis ANTINUCLEAR AB, HEP-2, Routine 04/12/2020 10:52 Arthritis R esults for this SUBSTRATE, S AM CDT Rheumatoid NOS procedure are in Corticosteroid the results Treatment Long section. Term Systemic MISC RESEARCH ORDER, B Routine 04/12/2020 10:52 Arthritis R esults for this AM CDT Rheumatoid (HCC) procedure a re in the results section. THYROID FUNCTION Routine 04/12/2020 10:52 Arthritis Results for this CASCADE, S AM CDT Rheumatoid NOS procedure are in Corticosteroid the results Treatment Long section. Term Systemic AB TO EXTRACTABLE Routine 04/12/2020 10:52 Arthritis Result s for this NUCLEAR AG EVAL, S AM CDT Rheumatoid NO S procedure are in Corticosteroid the results Treatment Long section. Term Systemic HCV AB W/REFLEX TO HCV Routine 04/12/2020 10:52 Arthritis R esults for this PCR, S AM CDT Rheumatoid NOS procedure are in Corticosteroid the results Treatment Long section. Term Systemic CYCLIC CITRULLINATED Routine 04/12/2020 10:52 Arthritis Res ults for this PEPTIDE ABS, IGG, S AM CDT Rheumatoid N OS procedure are in Corticosteroid the results Treatment Long section. Term Systemic HBC TOTAL AB, SERUM Routine 04/12/2020 10:52 Arthritis Resu lts for this AM CDT Rheumatoid NOS procedure are in Corticosteroid the results Treatment Long section. Term Systemic 25-HYDROXYVITAMIN D2 AND Routine 04/12/2020 10:52 Arthritis Results for this D3, S AM CDT Rheumatoid NOS procedure are in Corticosteroid the results Treatment Long section. Term Systemic HBS ANTIBODY, SERUM Routine 04/12/2020 10:52 Arthritis Resu lts for this AM CDT Rheumatoid NOS procedure are in Corticosteroid the results Treatment Long section. Term Systemic HEPATITIS B SURFACE Routine 04/12/2020 10:52 Arthritis Resu lts for this ANTIGEN AM CDT Rheumatoid NOS procedure are in Corticosteroid the results Treatment Long section. Term Systemic SEDIMENTATION RATE, B Routine 04/12/2020 10:52 Arthritis Re sults for this AM CDT Rheumatoid NOS procedure are in Corticosteroid the results Treatment Long section. Term Systemic CBC WITH DIFFERENTIAL, B Routine 04/12/2020 10:52 Arthritis Results for this AM CDT Rheumatoid NOS procedure are in Corticosteroid the results Treatment Long section. Term Systemic RHEUMATOID FACTOR, S/P Routine 04/12/2020 10:52 Arthritis R esults for this AM CDT Rheumatoid NOS procedure are in Corticosteroid the results Treatment Long section. Term Systemic C-REACTIVE PROTEIN Routine 04/12/2020 10:52 Arthritis Resul ts for this (CRP), S/P AM CDT Rheumatoid NOS procedure are in Corticosteroid the results Treatment Long section. Term Systemic ALANINE AMINOTRANSFERASE Routine 04/12/2020 10:52 Arthritis Results for this (ALT), S/P AM CDT Rheumatoid NOS procedure are in Corticosteroid the results Treatment Long section. Term Systemic ASPARTATE Routine 04/12/2020 10:52 Arthritis Results for this AMINOTRANSFERASE (AST), AM CDT Rheumato id NOS procedure are in S/P Corticosteroid the results Treatment Long section. Term Systemic CREATININE WITH EGFR, Routine 04/12/2020 10:52 Arthritis Re sults for this S/P AM CDT Rheumatoid NOS procedure are in Corticosteroid the results Treatment Long section. Term Systemic CREATINE KINASE (CK), S Routine 04/12/2020 10:52 Arthritis Results for this AM CDT Rheumatoid NOS procedure are in Corticosteroid the results Treatment Long section. Term Systemic CALCIUM, TOT, S/P Routine 04/12/2020 10:52 Arthritis Result s for this AM CDT Rheumatoid NOS procedure are in Corticosteroid the results Treatment Long section. Term Systemic QUANTIFERON-TB GOLD Routine 04/12/2020 10:50 Arthritis Resu lts for this PLUS, B AM CDT Rheumatoid NOS procedure are in Corticosteroid the results Treatment Long section. Term Systemic documented in this encounter Results Miscellaneous Research, B (04/12/2020 10:52 AM CDT) athologist Signature Number of 7 04/12/2020 [facility] Specimens 10:52 AM CDT Specimen Anatomical Collection Method Collection Time Receive d Time (Source) Location / / Volume Laterality Varies (Blood, 04/12/2020 10:52 0 Venous) AM CDT 10:52 AM CDT Romero Mckeon III, M.D. LAB RESEARCH NO RESULT JOEY IBARRA Performing Organization Address City/State/ZIP Code Phon e Number [facility] - [address] [place], [place] [address] [place] [address] Laboratories-[facility] [address] Antibody to Extractable Nuclear Antigen Evaluation (04/12/2020 10:52 AM CDT) athologist Signature SS-A/Ro Ab, <0.2 <1.0 04/12/2020 [facility] IgG, S (Negative) 2:28 PM CDT U SS-B/La Ab, <0.2 <1.0 04/12/2020 [facility] IgG, S (Negative) 2:28 PM CDT U Sm Ab, IgG, S <0.2 <1.0 04/12/2020 [facility] (Negative) 2:28 PM CDT U B[employer] ATTENDANT Ab, IgG, S <0.2 <1.0 04/12/2020 [facility] (Negative) 2:28 PM CDT U Scl 70 Ab, IgG, <0.2 <1.0 04/12/2020 [facility] S (Negative) 2:28 PM CDT U Kati 1 Ab, IgG, S <0.2 <1.0 04/12/2020 [facility] (Negative) 2:28 PM CDT U Specimen Anatomical Collection Method Collection Time Receive d Time (Source) Location / / Volume Laterality Blood (Blood, 04/12/2020 10:52 04/12/2020 1:31 Venous) AM CDT PM CDT Julianna ArangoS. LAB BLOOD ADD-ON Performing Organization Address City/[facility]/ZIP Code Phon e Number [facility] [address] [place], [place] [address] [facility] [place] [address] Laboratory Medicine and Pathology [address] [place] Thyroid Function Kipling (04/12/2020 10:52 AM CDT) athologist Signature TSH, Sensitive 0.8 0.3 - 4.2 04/12/2020 DTL mIU/L 12:04 PM CDT Specimen Anatomical Collection Method Collection Time Receive d Time (Source) Location / / Volume Laterality Blood (Blood, 04/12/2020 10:52 04/12/2020 Venous) AM CDT 11:38 AM CDT Julianna AustinB.S. LAB BLOOD ADD-ON Performing Organization Address City/[facility]/ZIP [facility] Phon e Number [facility] - [address] [place], [place] [address] [place] [address] [facility] [address] CK (Creatine Kinase) (04/12/2020 10:52 AM CDT) athologist Signature Creatine Kinase 165 26 - 192 04/12/2020 DTL (CK), S U/L 12:04 PM CDT Specimen Anatomical Collection Method Collection Time Receive d Time (Source) Location / / Volume Laterality Blood (Blood, 04/12/2020 10:52 04/12/2020 Venous) AM CDT 11:38 AM CDT Julianna ArangoS. LAB BLOOD ADD-ON Performing Organization Address City/[facility] Phon e Number [facility] - [address] [place] [address] [place] [address] Laboratories-[address] Calcium, Total (04/12/2020 10:52 AM CDT) athologist Signature Calcium, Total, 9.9 8.8 - 10.2 04/12/2020 DT S mg/dL 12:04 PM CDT Specimen Anatomical Collection Method Collection Time Receive d Time (Source) Location / / Volume Laterality Blood (Blood, 04/12/2020 10:52 04/12/2020 Venous) AM CDT 11:38 AM CDT Julianna ArangoS. LAB BLOOD ADD-ON Performing Organization Address City/[facility] Phon e Number [facility] - [id number] [place] [address] 25-Hydroxyvitamin D2 and D3 (04/12/2020 10:52 AM CDT) P athologist Signature 25-Hydroxy D2 <4.0 ng/mL 04/13/2020 [facility] 9:32 PM CDT 25-Hydroxy D3 38 ng/mL 04/13/2020 [facility] 9:32 PM CDT 25-Hydroxy D 38 ng/mL 04/13/2020 [facility] Total 9:32 PM CDT Comment: ----REFERENCE VALUE---- 25-HYDROXY D TOTAL (D2+D3) Optimum level s in the healthy population are 20-50, patients with bone disease may benefit from higher levels within this r maile. ----ADDITIONAL INFORMATION---- This test was developed and its performa nce characteristics determined by [facility] in a manner consistent with CLIA requirements. This test has not been cleared or approved by the [place] d and Drug Administration. Specimen Anatomical Collection Method Collection Time Receive d Time (Source) Location / / Volume Laterality Blood (Blood, 04/12/2020 10:52 04/12/2020 1:35 Venous) AM CDT PM CDT Julianna AustinB.S. LAB BLOOD ADD-ON Performing Organization Address City/[facility]/ZIP Code Phon e Number [facility] [address] [place], [place] [address] [facility] [place] [address] Laboratory Medicine and Pathology [address] [place] [address] Dr. NASH HCV Ab w/Reflex to HCV PCR, Serum (04/12/2020 10:52 AM CDT) athologist Signature HCV Ab, S Negative Negative 04/12/2020 [facility] 2:36 PM CDT Comment: Jbtfmq-kd-xwlwdc ratio is <1.00 . Specimen Anatomical Collection Method Collection Time Receive d Time (Source) Location / / Volume Laterality Blood (Blood, 04/12/2020 10:52 04/12/2020 1:21 Venous) AM CDT PM CDT Julianna Diaz.S. LAB MICROBIOLOGY - BLOOD ORD ERABLES Performing Organization Address City/[facility]/ZIP Code Phon e Number [facility] [address] [place], [place] [address] [address] Laboratory Medicine and Pathology [address] [place] [address] Dr. NASH HBc Total Ab, Serum (04/12/2020 10:52 AM CDT) athologist Signature HBc Total Ab, Negative Negative 04/12/2020 [facility] S 2:59 PM CDT Specimen Anatomical Collection Method Collection Time Receive d Time (Source) Location / / Volume Laterality Blood (Blood, 04/12/2020 10:52 04/12/2020 1:21 Venous) AM CDT PM CDT Julianna AustinB.S. LAB MICROBIOLOGY - BLOOD ORD ERABLES Performing Organization Address City/State/ZIP Code Phon e Number [facility] [address] [place], [place] [address] [facility] [place] [address] Laboratory Medicine and Pathology [address] [place] [address] Dr. NASH HBs Antibody, Serum (04/12/2020 10:52 AM CDT) athologist Signature HBs Antibody, Negative 04/12/2020 [facility] S 2:59 PM CDT Comment: Patient is presumed to be not immune to infection with HBV. ----REFERENCE VALUE---- Unvaccinated: Negative Vaccinated: Positive HBs Antibody, Quantitative, S <5.0 mIU/mL 04/12/2020 2:59 PM CDT [facility] Comment: ----REFERENCE VALUE---- Unvaccinated: <5.0 Vaccinated: >=12.0 Specimen Anatomical Collection Method Collection Time Receive d Time (Source) Location / / Volume Laterality Blood (Blood, 04/12/2020 10:52 04/12/2020 1:21 Venous) AM CDT PM CDT Julianna AustinB.S. LAB MICROBIOLOGY - BLOOD ORD ERABLES Performing Organization Address City/[facility]/ZIP Code Phon e Number [facility] [address] CHARITY [place], [place] [address] SUPPORT [facility] [place] [address] Laboratory Medicine and Pathology [address] [place] [address] Dr. NASH Hepatitis B Surface Antigen (04/12/2020 10:52 AM CDT) athologist Signature HBs Antigen, S Negative Negative 04/12/2020 [facility] 2:19 PM CDT Specimen Anatomical Collection Method Collection Time Receive d Time (Source) Location / / Volume Laterality Blood (Blood, 04/12/2020 10:52 04/12/2020 1:21 Venous) AM CDT PM CDT Julianna AustinB.S. LAB MICROBIOLOGY - BLOOD ORD ERABLES Performing Organization Address City/State/ZIP Code Phon e Number [facility] [address] [place], [place] [address] [place], [place] [address]. [place] [address] Laboratory Medicine and Pathology [address] [place] [address] Dr. NASH Antinuclear Antibodies, HEp-2 Substrate, IgG, Serum (04/12/2020 10:52 AM CDT) [facility] Method [facility] Signature Antinuclear Ab, <1:80 <1:80 04/12/2020 [facility] HEp-2 Substrate, (Negative) (Negative 9:15 PM CDT S ) Comment: ----ADDITIONAL INFORMATION---- Method: Immunofluorescence using HEp-2 c ellular substrate. Specimen Anatomical Collection Method Collection Time Receive d Time (Source) Location / / Volume Laterality Blood (Blood, 04/12/2020 10:52 04/12/2020 1:31 Venous) AM CDT PM CDT Julianna ArangoSMerline LAB BLOOD ADD-ON Performing Organization Address City/[facility] Code Phon e Number [facility] [address] [place] [phone] [place] [address] Laboratory Medicine and Pathology [address] [place] [address] Dr. NAHS (ABNORMAL) Cyclic Citrullinated Peptide Antibodies, IgG (04/12/2020 10:52 AM CDT) [facility] Method Time Signature Cyclic >250.0 <20.0 04/12/2020 [facility] Citrullinated (H) (Negative 5:41 PM CDT Peptide Ab, S ) U Comment: Interpretation: Strong Positive (>=60.0) Specimen Anatomical Collection Method Collection Time Receive d Time (Source) Location / / Volume Laterality Blood (Blood, 04/12/2020 10:52 04/12/2020 1:31 Venous) AM CDT PM CDT Julianna ArangoSMerline LAB BLOOD ADD-ON Performing Organization Address [facility] Phon e Number [facility] [address] [place], [place] [address] [facility] [place] [address] Laboratory Medicine and Pathology [address] [place] [address] Dr. NASH Rheumatoid Factor (04/12/2020 10:52 AM CDT) P athologist Signature Rheumatoid <15 <15 IU/mL 04/12/2020 [facility] Factor, S 2:46 PM CDT Specimen Anatomical Collection Method Collection Time Receive d Time (Source) Location / / Volume Laterality Blood (Blood, 04/12/2020 10:52 04/12/2020 2:13 Venous) AM CDT PM CDT Julianna ArangoSMerline LAB BLOOD ADD-ON Performing Organization Address City/[facility] Code Phon e Number [facility] [address] [place], [place] [address] [facility] [place] [address] Laboratory Medicine and Pathology [address] [place] Creatinine with Estimated GFR (04/12/2020 10:52 AM CDT) P athologist Signature Creatinine 0.77 0.59 - 04/12/2020 DTL 1.04 mg/dL 12:04 PM CDT eGFR-Non 82 >=60 04/12/2020 DTL Black/ mL/min/BSA 12:04 PM CDT Somali Comment: ----ADDITIONAL INFORMATION---- Estimated GFR calculated using the 2009 CKD_EPI creatinine equation. eGFR-Black/ >90 >=60 mL/min/BSA 2019 12:04 PM CDT DTL Comment: ----ADDITIONAL INFORMATION---- Estimated GFR calculated using the 2009 CKD_EPI creatinine equation. Specimen Anatomical Collection Method Collection Time Receive d Time (Source) Location / / Volume Laterality Blood (Blood, 04/12/2020 10:52 04/12/2020 Venous) AM CDT 11:38 AM CDT Julianna Kaye.B.S. LAB BLOOD ADD-ON Performing Organization Address City/State/ZIP Code Phon e Number [facility] - [address] [place], [place] [address] [place] [address] [place] [address] [place] [address] ALT (Alanine Aminotransferase) (04/12/2020 10:52 AM CDT) Patholo gist Method Time Signature Alanine 23 7 - 45 04/12/2020 DTL Aminotransferase U/L 12:04 PM CDT (ALT), S Specimen Anatomical Collection Method Collection Time Receive d Time (Source) Location / / Volume Laterality Blood (Blood, 04/12/2020 10:52 04/12/2020 Venous) AM CDT 11:38 AM CDT Julianna FoxB.B.S. LAB BLOOD ADD-ON Performing Organization Address City/State/ZIP Code Phon e Number [facility] - [address] [place], [place] [address] [place] [address] [facility] 200 [facility] AST (Aspartate Aminotransferase) (04/12/2020 10:52 AM CDT) Patholo gist Method Time Signature Aspartate 20 8 - 43 04/12/2020 DTL Aminotransferase U/L 12:04 PM CDT (AST), S Specimen Anatomical Collection Method Collection Time Receive d Time (Source) Location / / Volume Laterality Blood (Blood, 04/12/2020 10:52 04/12/2020 Venous) AM CDT 11:38 AM CDT Julianna AustinB.S. LAB BLOOD ADD-ON Performing Organization Address City/[facility] Phon e Number [facility] - [address] [place], [place] [address] [place] [address] [place] [address] Sedimentation Rate (04/12/2020 10:52 AM CDT) Analysis Performed At Patho logist Time Signature Sedimentation 7 2 - 22 04/12/2020 DTL Rate, B mm/h 12:23 PM CDT Specimen Anatomical Collection Method Collection Time Receive d Time (Source) Location / / Volume Laterality Blood (Blood, 04/12/2020 10:52 04/12/2020 Venous) AM CDT 11:22 AM CDT Julianna Diaz.S. LAB BLOOD ADD-ON Performing Organization Address City/State/[facility] Phon e Number [facility] - [address] [place], [place] [address] [place], [place] [id number] [address] (ABNORMAL) CRP (C-Reactive Protein) (04/12/2020 10:52 AM CDT) P athologist Signature C-Reactive 8.4 (H) <=8.0 mg/L 04/12/2020 DTL Protein (CRP), 12:04 PM CDT S Specimen Anatomical Collection Method Collection Time Receive d Time (Source) Location / / Volume Laterality Blood (Blood, 04/12/2020 10:52 04/12/2020 Venous) AM CDT 11:38 AM CDT Julianna AustinB.S. LAB BLOOD ADD-ON Performing Organization Address City/State/ZIP Code Phon e Number [facility] - 200 [place], [place] [address] [place] [address] [facility] [address] [facility] (ABNORMAL) CBC with Differential, Blood (04/12/2020 10:52 AM CDT) [facility] Method Time Signature Hemoglobin 14.3 11.6 - 04/12/2020 DTL 15.0 g/dL 11:32 AM CDT Hematocrit 44.4 35.5 - 04/12/2020 DTL 44.9 % 11:32 AM CDT Erythrocytes 5.21 (H) 3.92 - 04/12/2020 DTL 5.13 11:32 AM CDT x10(12)/L MCV 85.2 78.2 - 04/12/2020 DTL 97.9 fL 11:32 AM CDT RBC Distrib Width 14.2 12.2 - 04/12/2020 DTL 16.1 % 11:32 AM CDT Platelet Count 275 157 - 371 04/12/2020 DTL x10(9)/L 11:32 AM CDT Leukocytes 9.2 3.4 - 9.6 04/12/2020 DTL x10(9)/L 11:32 AM CDT Neutrophils 7.71 (H) 1.56 - 04/12/2020 DTL 6.45 11:32 AM CDT x10(9)/L Lymphocytes 1.10 0.95 - 04/12/2020 DTL 3.07 11:32 AM CDT x10(9)/L Monocytes 0.33 0.26 - 04/12/2020 DTL 0.81 11:32 AM CDT x10(9)/L Eosinophils <0.03 0.03 - 04/12/2020 DTL 0.48 11:32 AM CDT x10(9)/L Basophils 0.04 0.01 - 04/12/2020 DTL 0.08 11:32 AM CDT x10(9)/L Specimen Anatomical Collection Method Collection Time Receive d Time (Source) Location / / Volume Laterality Blood (Blood, 04/12/2020 10:52 04/12/2020 Venous) AM CDT 11:22 AM CDT Julianna Scruggs LAB BLOOD ADD-ON Performing Organization Address City/State/ZIP Code Phon e Number [facility] - [address] [place], [place] [address] [place] [address] [facility] [address] QuantiFERON-Tb Gold Plus, Blood (04/12/2020 10:50 AM CDT) athologist Signature QuantiFERON-TB Negative Negative 04/13/2020 [facility] Gold Plus 12:25 PM CDT Result Comment: No interferon-gamma response to M. tuber culosis antigens was detected. Infection with M. tubercul osis is unlikely. A single negative result does not exclud e infection with M. tuberculosis. In patients at high ris k for M.tuberculosis infection, a second test should be consi dered in accordance with the 2017 ATS/IDSA/CDC Clinical Prac won Guidelines for Diagnosis of Tuberculosis in Adults and Children [Lewinskimn DM et. al. Clin. Infect. Dis. 2017;64(2):111-115]. The reference range for the 'TB1 Ag karen s Nil Result' and 'TB2 Ag minus Nil Result' is an Inte rferon-gamma level <0.35 IU/mL. TB1 Ag minus Nil Result 0.00 IU/mL 04/13/2020 12:25 PM CDT [facility] TB2 Ag minus Nil Result 0.00 IU/mL 04/13/2020 12:25 PM CDT [facility] Mitogen minus Nil Result 0.81 IU/mL 04/13/2020 12:2 5 PM CDT [facility] Nil Result 0.01 IU/mL 04/13/2020 12:25 PM CDT [facility] Specimen Anatomical Collection Method Collection Time Receive d Time (Source) Location / / Volume Laterality Blood (Blood, 04/12/2020 10:50 04/12/2020 2:42 Venous) AM CDT PM CDT Narrative [facility] SUPPORT [facility] R - 04/13/2020 12:25 PM CDT Specimen Information: Specimen ID: [id number] Specimen Type: Blood Specimen Collection Start Date: 020 10:50 AM Specimen Received Date: 04/12/2020 ??2: 42 PM Specimen ID: [id number] Specimen Type: Blood Specimen Collection Start Date: 10:50 AM Specimen Received Date: 04/12/2020 ??2: 42 PM Specimen ID: [id number] Specimen Type: Blood Specimen Collection Start Date: 10:50 AM Specimen Received Date: 04/12/2020 ??2: 42 PM Specimen ID: [id number] Specimen Type: Blood Specimen Collection Start Date: 10:50 AM Specimen Received Date: 04/12/2020 ??2: 42 PM Julianna Scruggs LAB MICROBIOLOGY - BLOOD ORD ERABLES Performing Organization Address City/State/ZIP Code Phon e Number [facility] [address] [place] [address] SU[facility] [place] [address] Laboratory Medicine and Pathology [address] NASH documented in this encounter Visit Diagnoses Diagnosis Arthritis Rheumatoid (HCC) Corticosteroid Treatment Nursing Home Syste marie documented in this encounter
--- OUTSIDE RECORDS SUMMARY | 2022-03-04 13:14 | XMS_ITS | Encounter Summary ---
:1955 Author Organization [facility] Address [address] [place] [id number] Care Team Providers Name Role Phone Unavailable Primary Care Provider Unavailable Encounter Details Date Type Department Care Team Description 04/12/2020 Hospital Encounter Department of Julianna Heard tis Rheumatoid NOS; Radiology, Kael Silveira Corticosteroid Treatment Correction [place], [place] [address] [place] [phone] [place] [address] [place], [place] (Work) [phone] Social History Tobacco Use Types Packs/Day Years [...] or relatives? How often do you attend pentecostal or 1 to 4 times per year 02/21 buddhist services? Do you belong to any clubs or No 03/03/2022 organizations such as pentecostal groups, unions, fraternal or athletic groups, or [...] Tosha Leung, ADITHYA, C.N.P., D.N.P. [address] [place] [phone] documented as of this encounter Procedures Procedure Name Priority Date/Time Associated Comments Diagnosis DX FOOT ANKLE RAD - Routine 04/12/2020 11:46 Arthritis Results f or this BILATERAL 3+ (most inpatients AM CDT Rheumatoid NOS procedure are in VIEWS and all Corticosteroid the results outpatients) Treatment Long section. 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 Mild scattered degenerative arthritis. No definite distinct erosions . Achilles and plantar calcaneal spurs. Narrative 04/12/2020 11:53 AM CDT EXAM: ??DX FOOT ANKLE BILATERAL 3+ VIEWS Procedure Note Alexei Blum M.D. - 04/12/2020Forma tting of this note might be different from the original. EXAM: DX FOOT ANKLE BILATERAL 3+ VIEWS IMPRESSION: Osseous irregularity and chronic ununite d bone fragment about the right medial malleolus compatible with o ld injury. Mild scattered degenerative arthritis. No definite distinct erosions . Achilles and plantar calcaneal spurs. 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
--- OUTSIDE RECORDS SUMMARY | 2022-03-04 13:14 | XMS_ITS | Encounter Summary ---
:1955 Author Organization [facility] Address [address] [place] [address] Care Team Providers Name Role Phone Unavailable Primary Care Provider Unavailable Reason for Visit Reason Comments COVID Nurse Line Encounter Details Date Type Department Care Team Description 02/15/2020 Clinical Communication Division of Julianna Heard COV ID Nurse Line Rheumatology [place] [address] [facility] [address] [place] [phone] Social History Tobacco Use Types Packs/Day Years Used Date Smoking Tobacco: Never Assessed Alcohol Habits Answer Date Recorded How often [...] or relatives? How often do you attend orthodox or 1 to 4 times per year 02/21 christianity services? Do you belong to any clubs or No 03/03/2022 organizations such as orthodox groups, unions, fraternal or athletic groups, or [...] place to sleep or slept in a [facility] (including now)? Sex Assigned at Date Recorded Female 03/31/2021 8:17 PM CDT documented as of this encounter Miscellaneous Notes Telephone Encounter - Ambreen Palomares - 02/15/2020 2:07 PM CDT ([facility] and [facility] locations only: If the patient is not having symptoms and is requesting COVID-19 Nasal Swab testing only, use the process listed in the COVID-19 Patient Requesting COVID PCR Test OTG COVID-19 [place] Patient Requesting COVID PCR Test). In the past 30 days have you had a swab for COVID that tested positive? no Route reply to: rst rhu scheduling Scheduling Contact Number: [phone] documented in this encounter Plan of Treatment Upcoming Encounters Date Type Specialty Care Team Description 03/06/2022 Clinical Communication Admitting/Central Scheduling 03/08/2022 Office Visit Rheumatology Tosha Leung APRN, C.N.P., D.N.P. [address] [place] [phone] documented as of this encounter Visit Diagnoses Not on filedocumented in this encounter
--- OUTSIDE RECORDS SUMMARY | 2022-03-04 13:14 | XMS_ITS | Encounter Summary ---
:1955 Author Organization [facility] Address [address] [place] [address] Care Team Providers Name Role Phone Unavailable Primary Care Provider Unavailable Reason for Referral Outpatient (Routine) - Closed Specialty Diagnoses / Procedures Referred By Contact Refer red To Contact Rheumatology Diagnoses Arthritis Rheumatoid NOS Sandra Slade M.D. [facility] [address] [place] [address] Referral ID Status Reason Start Date Expiration Date Visits Requ ested Visits Authorized [id number] Closed 02/08/2020 02/07/2021 1 1 Encounter Details Date Type Department Care Team Description 02/08/2020 [facility] Sandra Slade Arthritis Rheumatoid AND ERICKSON Mccoy M.D. NOS ([facility]) (Primary [facility] [place] [id number] [phone] Social History Tobacco Use Types Packs/Day Years [...] or relatives? How often do you attend jain or 1 to 4 times per year 02/21 faith services? Do you belong to any clubs or No 03/03/2022 organizations such as jain groups, unions, fraternal or athletic groups, or [...] slept in a skilled nursing (including now)? Sex Assigned at Date Recorded Female 03/31/2021 8:17 PM CDT documented as of this encounter Plan of Treatment Upcoming Encounters Date Type Specialty Care Team Description 03/06/2022 Clinical Communication Admitting/Central Scheduling 03/08/2022 Office Visit Rheumatology Tosha Leung, ADITHYA, C.N.P., D.N.P. [address] [place] [phone] Scheduled Referrals Name Type Priority Associated Order Schedule Diagnoses Rheumatology Referral Outpatient Referral Routine Arthritis Expected: Rheumatoid NOS 02/08/2020 ([facility]) (Approximate), Expires: 02/07/2023 documented as of this encounter Visit Diagnoses Diagnosis Arthritis Rheumatoid NOS - Primary documented in this encounter
--- OUTSIDE RECORDS SUMMARY | 2022-03-04 13:14 | XMS_ITS | Encounter Summary ---
:1955 Author Organization [facility] Address [address] [place] [address] Care Team Providers Name Role Phone Unavailable Primary Care Provider Unavailable Reason for Referral Specialty Diagnoses / Procedures Referred By Contact Refer luis To Contact Julianna Heard M .B.B.S. [address] [phone] Referral ID Status Reason Start Date Expiration Date Visits Requ ested Visits Authorized Outpatient (Routine) - Closed Specialty Diagnoses / Procedures Referred By Contact Angie smith To Contact Rheumatology Julianna Heard M .B.B.S. [address] [phone] Referral ID Status Reason Start Date Expiration Date Visits Requ ested Visits Authorized [id number] Closed 04/12/2020 04/12/2021 1 1 Reason for Visit Outpatient (Routine) - Closed Specialty Diagnoses / Procedures Referred By Contact Angie smith To Contact Rheumatology Diagnoses Arthritis Rheumatoid NOS Sandra Slade M.D. [address] [address] Referral ID Status Reason Start Date Expiration Date Visits Requ ested Visits Authorized [id number] Closed 02/08/2020 02/07/2021 1 1 Encounter Details Date Type Department Care Team Description 04/12/2020 Comprehensive Visit Division of Félix, Corticos teroid Treatment Manager [employer] (Primary Dx); Rheumatology in [place]., Other Rheuma toid Arthritis With Rheumatoid Factor Unspecified Site ([facility]) [place], [place] M.B.B.S. [address] [facility] [address] [place] [id number] [phone] Social History Tobacco Use Types Packs/Day Years [...] or relatives? How often do you attend episcopal or 1 to 4 times per year 02/21 mandaen services? Do you belong to any clubs or No 03/03/2022 organizations such as episcopal groups, unions, fraternal or athletic groups, or [...] Sign Reading Time Taken Comments Blood Pressure 150/89 04/12/2020 9:00 AM CDT Pulse 87 04/12/2020 9:00 AM CDT Temperature 36.2 ??C (97.2 ??F) 04/12/2020 9:00 AM CDT Respiratory Rate - - Oxygen Saturation - - Inhaled Oxygen Concentration - - Weight 109 kg (239 lb 13.8 oz) 04/12/2020 9:00 AM CDT Height 176.6 cm (5' 9.53) 04/12/2020 9:00 AM CDT Body Mass Index 34.89 04/12/2020 9:00 AM CDT documented in this encounter Consult Notes Julianna Heard M.B.B.S. - 04/12/2020 9:00 AM CDT SUBJECTIVE Rheumatology Inflammatory Arthritis Consult CHIEF COMPLAINT / REASON FOR CONSULT Hilda Long is a 64 y.o. female who was referred by Sandra Slade M.D. for evaluation of rheumatoid arthritis. 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 She denies chronic joint symptoms prior to 2019 Developed palindromic joint inflammation with swelling, pain moving from her left hand/wrist to right hand, bilateral shoulders, feet and knees. She also has occasional symptoms at night inclusive of shoulder bursitis. Underwent workup locally which revealed elevated CRP of 44 milligrams/liter (less than 10 being normal), mildly elevated sed rate 24. Rheumatoid factor mildly elevated at 16, CCP strongly positive at 181 , less than 19 being normal) No x-rays or advanced imaging performed She was started on prednisone 20 mg daily which she took from February 20 until few weeks ago, currently taking 10 mg daily. Has helped significantly though she has ongoing pain and fatigue Also took NSAIDs (naproxen 500 mg as needed). Review of systems positive for fatigue. No history of sleep apnea or snoring. Her snores. She has not lost not getting restful sleep more recently. No inflammatory eye disease, no psoriasis Past medical history includes increased BMI, hyperlipidemia, hypertension, migraine headaches. Colonoscopy in the past showed adenomatous polyps were removed in 2018. A history of glaucoma with no macular degeneration. Grandmother did have macular degeneration Family History Problem Relation Age of Onset ??? Breast cancer Mother ??? Diabetes Mother ??? Skin cancer Father ??? Prostate cancer Father ??? Kidney cancer Father ??? Diabetes Sister ??? Obesity Sister ??? Rheum arthritis Maternal Grandmother ??? Clotting disorder Brother Social History Tobacco Use ??? Smoking status: Former Smoker Packs/day: 0.00 Years: 0.00 Pack years: 0.00 Start date: 1971 Last attempt to quit: 07/03/1999 Years since quittin.7 ??? Smokeless tobacco: Never Used Substance Use Topics ??? Alcohol use: Yes Alcohol/week: 2.0 standard drinks Types: 2 Standard drinks or equivalent per week Frequency: 2-4 times a month Drinks per session: 1 or 2 Binge frequency: Never ??? Drug use: Never She will be retiring soon. Previous Reports Reviewed:lab reports, office notes and [...] Respiratory: Positive for dyspnea. Cardiovascular: Positive for rapid or fluttering heart beat. Hematologic: Positive for bruises or bleeds easily. Musculoskeletal: Positive for arthralgias, pain or stiffness in the joints, joint swelling and muscle pain/stiffness. Neurological: Positive for numbness or shooting pain in hands, arms, legs, or feet and weakness in arms or legs. The following systems were negative: Skin, Eyes, ENT, GI, , Psych OBJECTIVE BP 150/89 (BP Location: Left arm, Patient Position: Sitting, Cuff Size: Regular) Pulse 87 Temp 36.2 ??C (Tympanic) Ht 176.6 cm Wt 109 kg BMI 34.89 kg/m?? PHYSICAL EXAM Physical Exam General: Alert, oriented, appropriate affect, no apparent distress. Eyes: Clear conjunctivae and lids. ENT: Moist oral mucosa without mucositis. Lymph: No cervical or supraclavicular adenopathy. Skin: No rheumatologic rashes or ulcers. Vessels: Normal radial and pedal pulses. No edema. Heart: Regular rate. No murmurs or rubs. Lungs: Clear to auscultation bilaterally. Abdomen: No tenderness or hepatosplenomegaly noted. Spine: Cervical and lumbar range of motion is appropriate for age and habitus. Joints: No synovitis of the upper and lower extremities including hands, wrists, elbows, knees, ankles or feet bilaterally. Range of motion of the extremities including shoulders and hips are within functional limits bilaterally. Neuro: Appropriate gait for age. Proximal and distal strength in the upper and lower extremities is grossly intact. Lab: See HPI Imaging: None Patient Reported Outcomes: Global Pain: 13/100 Global Assessment: 10/100 Physical Function: 44/100 Provider Assessment: 20 /100 Disease Activity Tenderness RUE: wrist Swelling RUE: wrist Tender joint count (0-28): 1 Swollen joint count (0-28): 1 Health Assessment Questionnaire II (ARTHUR-II) Score 0-3: 1.4 Pain, 0-100: 13 Patient Global Assessment of Disease Activity, 0-100: 10 Provider Global Assessment, 0-100: 20 Composite Disease Activity Scores Clinical Disease Activity Index (CDAI): 5 Review of vaccinations in psychiatric include PPSV 23 /pneumonia in 2018, Shingrix (0 doses) in 2019. And influenza, most recently in March 2020 ASSESSMENT / PLAN #1 Seropositive rheumatoid arthritis #2 Prednisone use #3 Fatigue, likely multifactorial #4 Chronic medical conditions including HTN, HLD #5 Bone Health and health maintenance # 6 Medication monitoring #7 Glaucoma Discussed thoughts in detail with patient. I concur with diagnosis of late onset seropositive rheumatoid arthritis with polyarticular joint involvement, Migratory arthritis with swelling and warmth, response to prednisone and NSAIDs, elevated inflammatory markers and strongly positive CCP antibodies Other risk factors include family history of autoimmunity. We discussed that smoking has also been associated with CCP antibody generation. Thankfully she no longer smokes Plan of care is assessing disease severity and prognostication then starting management to control joint pain, improve function and reduce damage. Plan: 1. Additional labs including repeat inflammatory markers, complete blood count, renal and liver function tests, hepatitis B, C serology and TB testing, vitamin- D and calcium levels. Because a family history of scleroderma, we would also obtain EVE and OPHELIA test to exclude overlap. Fatigue workup including thyroid function, CK and vitamin-D as above. If all negative and fatigue does not respond to management of inflammatory arthritis , then additional investigation including sleep evaluation may be required 2. Hand and foot radiographs to evaluate for erosive disease 3. If infectious testing is negative, start methotrexate. We will enroll her in in our nurse run methotrexate protocol: Would recommend starting methotrexate 10 mg weekly for 4 weeks, they will follow-up and escalate per protocol 4. Will start folic acid with methotrexate to reduce risk of side effects 5. For now would recommend continuing prednisone 10 mg daily for 1 week given ongoing mild synovitis/inflammatory arthritis. Then she will taper by 2.5 mg every week until off 6. Follow-up visit in 2-3 months to reassess disease activity 7. She is a good candidate for early arthritis clinical study, we discussed this and she is willing to meet with our study coordinators regarding enrollment. I appreciate Her assistance and interest 8. Would recommend updating bone density scan if not done within the last 2 years. Risk factors for osteoporosis/significant osteopenia include age/gender, postmenopausal status, corticosteroid use of greater than 2.5 mg For almost 3 months and rheumatoid arthritis 9. Methotrexate monitoring: CBC, AST, creatinine monthly for the 1st 3 months then every 3 months after that. Given distance from [place], I recommend that she had this done with her primary care provider will send a lab letter 10. Vaccinations up-to-date except for PCV 13 which I would recommend getting through her primary care provider. 11. If shoulder symptoms continue despite augmenting management of methotrexate, we may need to explore options including shoulder injections and physical therapy Provided with patient information on rheumatoid arthritis, methotrexate She will get my business card from the desk. Was a pleasure seeing her in consultation Time Spent: 60 minutes, > 50% in counselling This document was prepared with voice recognition software; while reviewed prior to signature, it may contain unintended minor voice recognition errors. Julianna SMITH Wire Winding Machine Tender Tent Assembler Rheumatology [employer] documented in this encounter Plan of Treatment Upcoming Encounters Date Type Specialty Care Team Description 03/06/2022 Clinical Communication Admitting/Central Scheduling 03/08/2022 Office Visit Rheumatology Tosha Leung, ADITHYA, C.N.P., D.N.P. [address] [place] [address] Scheduled Referrals Name Type Priority Associated Diagnoses Order S [facility] Rheumatology office Outpatient Referral Routine E xpected: visit (clinic) 07/13/2020 (Approximate), Expires: 04/12/2023 Rheumatology - Outpatient Referral Routine Other Rheumatoid Ex pected: Education visit Arthritis With 04/12/2020 , (clinic) Rheumatoid Factor Expires: Unspecified Site 04/12/2023 (HCC) Corticosteroid Treatment [facility] documented as of this encounter Results DX Hand Bilateral 3 [...] o degenerative or erosive changes. Julianna Scruggs IMG DIAGNOSTIC IMAGING PROCE DURES DX Foot Ankle Bilateral 3+ Views (04/12/2020 [...] . Achilles and plantar calcaneal spurs. Julianna AustinB.S. IMG DIAGNOSTIC IMAGING PROCE [facility] Antibody to Extractable Nuclear Antigen Evaluation (04/12/2020 10:52 AM CDT) P athologist Signature SS-A/Ro Ab, <0.2 <1.0 04/12/2020 [facility] IgG, S (Negative) 2:28 PM CDT U SS-B/La Ab, <0.2 <1.0 04/12/2020 [facility] IgG, S (Negative) 2:28 PM CDT U Sm Ab, IgG, S <0.2 <1.0 04/12/2020 [facility] (Negative) 2:28 PM CDT U MEDICAL CODING TECHNICIAN Ab, IgG, S <0.2 <1.0 04/12/2020 [facility] (Negative) 2:28 PM CDT U Scl 70 Ab, IgG, <0.2 <1.0 04/12/2020 [facility] S (Negative) 2:28 PM CDT U Kati 1 Ab, IgG, S <0.2 <1.0 04/12/2020 [facility] (Negative) 2:28 PM CDT U Specimen Anatomical Collection Method Collection Time Receive d Time (Source) Location / / Volume Laterality Blood (Blood, 04/12/2020 10:52 04/12/2020 1:31 Venous) AM CDT PM CDT Julianna ArangoSMerline LAB BLOOD ADD-ON Performing Organization Address City/[facility]/ZIP Code Phon e Number [facility] [address] [place], [place] [address] [facility] [place] [address] Laboratory Medicine and Pathology [address] [place] Thyroid Function Hartly (04/12/2020 10:52 AM CDT) athologist Signature TSH, Sensitive 0.8 0.3 - 4.2 04/12/2020 DTL mIU/L 12:04 PM CDT Specimen Anatomical Collection Method Collection Time Receive d Time (Source) Location / / Volume Laterality Blood (Blood, 04/12/2020 10:52 04/12/2020 Venous) AM CDT 11:38 AM CDT Julianna ArangoSMerline LAB BLOOD ADD-ON Performing Organization Address City/[facility] Code Phon e Number [facility] - [address] [place], [place] [address] [place] [address] Laboratories-[place] [address] CK (Creatine Kinase) (04/12/2020 10:52 AM CDT) athologist Signature Creatine Kinase 165 26 - 192 04/12/2020 DTL (CK), S U/L 12:04 PM CDT Specimen Anatomical Collection Method Collection Time Receive d Time (Source) Location / / Volume Laterality Blood (Blood, 04/12/2020 10:52 04/12/2020 Venous) AM CDT 11:38 AM CDT Julianna ArangoS. LAB BLOOD ADD-ON Performing Organization Address City/State/ZIP Code Phon e Number [facility] - [address] [place], [place] [address] [place] [address] Laboratories-[place] [address] Calcium, Total (04/12/2020 10:52 AM CDT) athologist Signature Calcium, Total, 9.9 8.8 - 10.2 04/12/2020 DT S mg/dL 12:04 PM CDT Specimen Anatomical Collection Method Collection Time Receive d Time (Source) Location / / Volume Laterality Blood (Blood, 04/12/2020 10:52 04/12/2020 Venous) AM CDT 11:38 AM CDT Julianna ArangoS. LAB BLOOD ADD-ON Performing Organization Address City/[facility]/ZIP Code Phon e Number [facility] - [address] [place], [place] [address] [place] [address] Laboratories-[facility] [address] 25-Hydroxyvitamin D2 and D3 (04/12/2020 10:52 AM CDT) athologist Signature 25-Hydroxy D2 <4.0 ng/mL 04/13/2020 [facility] 9:32 PM CDT 25-Hydroxy D3 38 ng/mL 04/13/2020 SDS 9:32 PM CDT 25-Hydroxy D 38 ng/mL 04/13/2020 [facility] Total 9:32 PM CDT Comment: ----REFERENCE VALUE---- 25-HYDROXY D TOTAL (D2+D3) Optimum level s in the healthy population are 20-50, patients with bone disease may benefit from higher levels within this r maile. ----ADDITIONAL INFORMATION---- This test was developed and its performa nce characteristics determined by [facility] in a manner consistent with CLIA requirements. This test has not been cleared or approved by the [place] d and Drug Administration. Specimen Anatomical Collection Method Collection Time Receive d Time (Source) Location / / Volume Laterality Blood (Blood, 04/12/2020 10:52 04/12/2020 1:35 Venous) AM CDT PM CDT Julianna ArangoS. LAB BLOOD ADD-ON Performing Organization Address City/[facility]/ZIP Code Phon e Number [facility] [address] [place], [place] [address] [facility] [place] [address] Laboratory Medicine and Pathology [address] [place] HCV Ab w/Reflex to HCV PCR, Serum (04/12/2020 10:52 AM CDT) athologist Signature HCV Ab, S Negative Negative 04/12/2020 [facility] 2:36 PM CDT Comment: Kejzgk-bh-xzktbf ratio is <1.00 . Specimen Anatomical Collection Method Collection Time Receive d Time (Source) Location / / Volume Laterality Blood (Blood, 04/12/2020 10:52 04/12/2020 1:21 Venous) AM CDT PM CDT Julianna Scruggs LAB MICROBIOLOGY - BLOOD ORD TANJA Performing Organization Address [facility] Phon e Number [facility] [address] [place] [address] [address] [facility] [place] [address] Laboratory Medicine and Pathology [address] [place] [address] Dr. NAS[place] HBc Total Ab, Serum (04/12/2020 10:52 AM CDT) athologist [facility] HBc Total Ab, Negative Negative 04/12/2020 [facility] S 2:59 PM CDT Specimen Anatomical Collection Method Collection Time Receive d Time (Source) Location / / Volume Laterality Blood (Blood, 04/12/2020 10:52 04/12/2020 1:21 Venous) AM CDT PM CDT Julianna Scruggs LAB MICROBIOLOGY - BLOOD ORD TANJA Performing Organization Address City/[facility] Phon e Number [facility] [address] [place] [address] SU[address] [facility] [place] [address] Laboratory Medicine and Pathology [address] [place] [address] Dr. [place] HBs Antibody, Serum (04/12/2020 10:52 AM CDT) athologist [facility] HBs Antibody, Negative 04/12/2020 [facility] S 2:59 PM CDT Comment: Patient is presumed to be not immune to infection with HBV. ----REFERENCE VALUE---- Unvaccinated: Negative Vaccinated: Positive HBs Antibody, Quantitative, S <5.0 mIU/mL 04/12/2020 2:59 PM CDT [facility] Comment: ----REFERENCE VALUE---- Unvaccinated: <5.0 Vaccinated: >=12.0 Specimen Anatomical Collection Method Collection Time Receive d Time (Source) Location / / Volume Laterality Blood (Blood, 04/12/2020 10:52 04/12/2020 1:21 Venous) AM CDT PM CDT Julianna ArangoSMerline LAB MICROBIOLOGY - BLOOD ORD ERABLES Performing Organization Address City/[facility]/ZIP Code Phon e Number [facility] [address] [place] [phone] [facility] [place] [address] Laboratory Medicine and Pathology [address] [place] [address] Dr. [place] Hepatitis B Surface Antigen (04/12/2020 10:52 AM CDT) P athologist Signature HBs Antigen, S Negative Negative 04/12/2020 [facility] 2:19 PM CDT Specimen Anatomical Collection Method Collection Time Receive d Time (Source) Location / / Volume Laterality Blood (Blood, 04/12/2020 10:52 04/12/2020 1:21 Venous) AM CDT PM CDT Julianna ArangoSMerline LAB MICROBIOLOGY - BLOOD ORD ERABLES Performing Organization Address [facility] Phon e Number [address] [place] [phone] [facility] [place] [address] Laboratory Medicine and Pathology [address] [place] [address] Dr. [place] Antinuclear Antibodies, HEp-2 Substrate, IgG, Serum (04/12/2020 10:52 AM CDT) Patholo gist Method Time Signature Antinuclear Ab, <1:80 <1:80 04/12/2020 [facility] HEp-2 Substrate, (Negative) (Negative 9:15 PM CDT S ) Comment: ----ADDITIONAL INFORMATION---- Method: Immunofluorescence using HEp-2 c ellular substrate. Specimen Anatomical Collection Method Collection Time Receive d Time (Source) Location / / Volume Laterality Blood (Blood, 04/12/2020 10:52 04/12/2020 1:31 Venous) AM CDT PM CDT Julianna ArangoSMerline LAB BLOOD ADD-ON Performing Organization Address City/[facility]/ZIP Code Phon e Number [facility] [address] [place] [phone] SU[address] [facility] [place] [address] Laboratory Medicine and Pathology [address] [place] [address] Dr. NAS[place] (ABNORMAL) Cyclic Citrullinated Peptide Antibodies, IgG (04/12/2020 10:52 AM CDT) [facility] gist Method Time Signature Cyclic >250.0 <20.0 04/12/2020 [facility] Citrullinated (H) (Negative 5:41 PM CDT Peptide Ab, S ) U Comment: Interpretation: Strong Positive (>=60.0) Specimen Anatomical Collection Method Collection Time Receive d Time (Source) Location / / Volume Laterality Blood (Blood, 04/12/2020 10:52 04/12/2020 1:31 Venous) AM CDT PM CDT Julianna AustinB.S. LAB BLOOD ADD-ON Performing Organization Address City/[facility]/ZIP [facility] Phon e Number [place] [phone] [place] [address] [facility] [place] [address] Laboratory Medicine and Pathology [address] [place] [address] Dr. NAS[place] Rheumatoid Factor (04/12/2020 10:52 AM CDT) athologist Signature Rheumatoid <15 <15 IU/mL 04/12/2020 [facility] Factor, S 2:46 PM CDT Specimen Anatomical Collection Method Collection Time Receive d Time (Source) Location / / Volume Laterality Blood (Blood, 04/12/2020 10:52 04/12/2020 2:13 Venous) AM CDT PM CDT Julianna AustinB.S. LAB BLOOD ADD-ON Performing Organization Address City/[facility]/ZIP [facility] Phon e Number [place] [phone] [place] [address] SUPPORT CENTER [facility] [place] [address] Laboratory Medicine and Pathology [address] [place] [address] Dr. NAS[place] Creatinine with Estimated GFR (04/12/2020 10:52 AM CDT) athologist Signature Creatinine 0.77 0.59 - 04/12/2020 DTL 1.04 mg/dL 12:04 PM CDT eGFR-Non 82 >=60 04/12/2020 DTL Black/ mL/min/BSA 12:04 PM CDT Indonesian Comment: ----ADDITIONAL INFORMATION---- Estimated GFR calculated using the 2009 CKD_EPI creatinine equation. eGFR-Black/ >90 >=60 mL/min/BSA 2019 12:04 PM CDT [facility] Comment: ----ADDITIONAL INFORMATION---- Estimated GFR calculated using the 2009 CKD_EPI creatinine equation. Specimen Anatomical Collection Method Collection Time Receive d Time (Source) Location / / Volume Laterality Blood (Blood, 04/12/2020 10:52 04/12/2020 Venous) AM CDT 11:38 AM CDT Julianna AustinB.S. LAB BLOOD ADD-ON Performing Organization Address City/State/[facility] Code Phon e Number [facility] - [address] [place] [address] ALT (Alanine Aminotransferase) (04/12/2020 10:52 AM CDT) [facility] [employer] Method Time Signature Alanine 23 7 - 45 04/12/2020 DTL Aminotransferase U/L 12:04 PM CDT (ALT), S Specimen Anatomical Collection Method Collection Time Receive d Time (Source) Location / / Volume Laterality Blood (Blood, 04/12/2020 10:52 04/12/2020 Venous) AM CDT 11:38 AM CDT Julianna AustinB.S. LAB BLOOD ADD-ON Performing Organization Address City/[facility] Code Phon e Number [facility] - [address] DTL [address] AST (Aspartate Aminotransferase) (04/12/2020 10:52 AM CDT) [facility] [employer] Method Time Signature Aspartate 20 8 - 43 04/12/2020 DTL Aminotransferase U/L 12:04 PM CDT (AST), S Specimen Anatomical Collection Method Collection Time Receive d Time (Source) Location / / Volume Laterality Blood (Blood, 04/12/2020 10:52 04/12/2020 Venous) AM CDT 11:38 AM CDT Julianna AustinB.S. LAB BLOOD ADD-ON Performing Organization Address City/[facility] Code Phon e Number [facility] - [address] [place], [place] [address] [address] [place] [phone] Laboratories-[facility] [facility] [address] [facility] Sedimentation Rate (04/12/2020 10:52 AM CDT) Analysis Performed At Patho logist Time Signature Sedimentation 7 2 - 22 04/12/2020 DTL Rate, B mm/h 12:23 PM CDT Specimen Anatomical Collection Method Collection Time Receive d Time (Source) Location / / Volume Laterality Blood (Blood, 04/12/2020 10:52 04/12/2020 Venous) AM CDT 11:22 AM CDT Julianna AustinB.S. LAB BLOOD ADD-ON Performing Organization Address City/[facility] Phon e Number [facility] - [address] [address] [facility] (ABNORMAL) CRP (C-Reactive Protein) (04/12/2020 10:52 AM CDT) P athologist Signature C-Reactive 8.4 (H) <=8.0 mg/L 04/12/2020 DTL Protein (CRP), 12:04 PM CDT S Specimen Anatomical Collection Method Collection Time Receive d Time (Source) Location / / Volume Laterality Blood (Blood, 04/12/2020 10:52 04/12/2020 Venous) AM CDT 11:38 AM CDT Julianna AustinB.S. LAB BLOOD ADD-ON Performing Organization Address City/State/[facility] Code Phon e Number [facility] - [address] [place] [address] [address] [place] [address] (ABNORMAL) CBC with Differential, Blood (04/12/2020 10:52 AM CDT) Patholo gist Method Time Signature Hemoglobin 14.3 11.6 - [...] Code Phon e Number [facility] - [address] [place], [place] [address] [place] [address] Laboratories-[facility] [address] QuantiFERON-Tb Gold Plus, Blood [...] Diagnosis of Tuberculosis in Adults and Children [Simrann DM et. al. Clin. Infect. Dis. 2017;64(2):111-115]. [...] 2:42 Venous) AM CDT PM CDT Narrative [facility] SUPPORT DONNAE R - 04/13/2020 12:25 PM CDT Specimen Information: Specimen ID: [id number] Specimen Type: Blood Specimen Collection Start Date: 020 10:50 AM Specimen Received Date: 04/12/2020 ??2: 42 PM Specimen ID: [id number] Specimen Type: Blood Specimen Collection Start Date: 020 10:50 AM Specimen Received Date: 04/12/2020 ??2: 42 PM Specimen ID: [id number] Specimen Type: Blood Specimen Collection Start Date: 020 10:50 AM Specimen Received Date: 04/12/2020 ??2: 42 PM Specimen ID: [id number] Specimen Type: Blood Specimen Collection Start Date: 020 10:50 AM Specimen Received Date: 04/12/2020 ??2: 42 PM Julianna Scruggs LAB MICROBIOLOGY - BLOOD ORD ERABLES Performing Organization Address City/State/ZIP Code Phon e Number [facility] [address] [facility] [place] [address] SUPPORT CENTER [facility] [place] [address] Laboratory Medicine and Pathology [address] [facility] documented in this encounter Visit Diagnoses Diagnosis Corticosteroid Treatment Shelter Syste marie - Primary Other Rheumatoid Arthritis With Rheumato id Factor Unspecified Site (HCC) Arthritis Rheumatoid (HCC) Corticosteroid Treatment Manager Solar Syste marie Arthritis Rheumatoid NOS Corticosteroid Treatment Shelter Syste marie Arthritis Rheumatoid NOS Corticosteroid Treatment Shelter Syste marie documented in this encounter
--- OUTSIDE RECORDS SUMMARY | 2022-03-04 13:14 | XMS_ITS | Encounter Summary ---
:1955 Author Organization [facility] Address [address] [place] [address] Care Team Providers Name Role Phone Unavailable Primary Care Provider Unavailable Reason for Visit Reason Comments COVID Nurse Line Encounter Details Date Type Department Care Team Description 04/11/2020 Clinical Communication Division of Julianna Heard COV ID Nurse Line [place] [address] [facility] [address] [place] [phone] Social History Tobacco Use Types Packs/Day Years [...] or relatives? How often do you attend caodaism or 1 to 4 times per year 02/21 baptist services? Do you belong to any clubs or No 03/03/2022 organizations such as caodaism groups, unions, fraternal or athletic groups, or [...] place to sleep or slept in a assisted (including now)? Education Answer Date Recorded What is the highest level of school you have completed or 12 th grade 04/07/2020 the highest degree you have received? Sex Assigned at Date Recorded Female 03/31/2021 8:17 PM CDT documented as of this encounter Miscellaneous Notes Telephone Encounter - Alison Valiente - 04/11/2020 8:18 AM CDT 1. Is the patient requesting a COVID test only or other appointments? Other Appointments 2. Have you tested positive for COVID-19 in the last 30 days or do you have a pending COVID-19 test because you had symptoms? no 3. In the last 14 days have you had close contact with a lab confirmed positive case of COVID-19 (close contact is defined as a household case of COVID or being within 6 feet of a COVID-19 patient for more than 5 minutes or having direct contact with infectious secretions, e.g., being coughed on)? no 4. In the past 14 days, are any of the following symptoms new to you and not related to an existing health condition? a. Fever greater than or equal to 37.8 C (100.0 F)? no b. New symptoms (Specifically: headache, cough, shortness of breath, respiratory distress, sore throat, diarrhea, nausea, vomiting, chills and repeated shaking with chills, myalgia's (muscle aches), loss of smell, or change or loss of taste sensation)? no 5. Are you having NEW trouble breathing, worsening breathing, or feeling as though you're going to collapse when you stand or sit up? no 6. Have you tested positive for COVID in the last 90 days? no Route reply to: [facility] Scheduling Contact Number: [phone] documented in this encounter Plan of Treatment Upcoming Encounters Date Type Specialty Care Team Description 03/06/2022 Clinical Communication Admitting/Central Scheduling 03/08/2022 Office Visit Rheumatology Tosha Leung, ADITHYA, C.N.P., D.N.P. [address] [place] [phone] documented as of this encounter Visit Diagnoses Not on filedocumented in this encounter
--- OUTSIDE RECORDS SUMMARY | 2022-03-04 13:14 | XMS_ITS | Encounter Summary ---
:1955 Author Organization [facility] Address [address] [place] [address] Care Team Providers Name Role Phone Unavailable Primary Care Provider Unavailable Reason for Visit Reason Comments Patient Education Methotrexate (Initial) Encounter Details Date Type Department Care Team Description 04/12/2020 Education Division of Rheumatology Julianna Heard M.B.B.S. [address] [place] [phone] Canceled (Clinic: in [facility] Khadijah Victor, RMerlineNMerline [address] [place] [address] Scheduling Error) [address] [place] [address] Social History Tobacco Use Types Packs/Day Years Used Date Smoking Tobacco: Former Cigarettes 0 0 0 06/1971 - 07/03/1999 Smokeless Tobacco: [...] 1 to 4 times per year 02/21 baptism services? Do you belong to any clubs [...] as of this encounter Progress Notes Khadijah Victor R.N. - 04/12/2020 2:00 PM CDT SUBJECTIVE REASON FOR VISIT Medication Education HISTORY OF PRESENT ILLNESS Hilda Long has a diagnosis of rheumatoid arthritis. SARAH Juarez requested nursing assistance with medication education. Reviewed education on methotrexate with the patient. Discussed purpose, administration, precautions,risks, side effects, lab monitoring, and when to contact your provider. Subcutaneous administration was demonstrated and patient was able to teach back. All questions were answered. Patient enrolled in the Methotrexate Adjustment Protocol per provider request. Patient will completelabs Locally. Follow-up with nursing via VIDEO VISIT in in 4 weeks. documented in this encounter Plan of Treatment Upcoming Encounters Date Type Specialty Care Team Description 03/06/2022 Clinical Communication Admitting/Central Scheduling 03/08/2022 Office Visit Rheumatology Tosha Leung APRN, C.N.P., D.N.P. [address] [place] [address] documented as of this encounter Visit Diagnoses Not on filedocumented in this encounter
--- OUTSIDE RECORDS SUMMARY | 2022-03-04 13:14 | XMS_ITS | Encounter Summary ---
:1955 Author Organization [facility] Address [address] [place] [address] Care Team Providers Name Role Phone Unavailable Primary Care Provider Unavailable Reason for Visit Reason Comments Triage Encounter Details Date Type Department Care Team Description 02/11/2020 Clinical Communication Division of Provider, Unknown Triage Rheumatology in [place], [place] [address] [place] [address] Social History Tobacco Use Types Packs/Day Years [...] or relatives? How often do you attend oriental orthodox or 1 to 4 times per year 02/21 moravian services? Do you belong to any clubs or No 03/03/2022 organizations such as oriental orthodox groups, unions, fraternal or athletic groups, [...] or slept in a correction (including now)? Sex Assigned at Date Recorded Female 03/31/2021 8:17 PM CDT documented as of this encounter Miscellaneous Notes Telephone Encounter - Ambreen Rushing M.B.B.S. - 02/15/2020 12:50 PM CDT Rheumatology Appointment Request Form Triage Appointment request: APPROVED Indication: Rheumatoid arthritis- new diagnosis Subspecialty group: [facility] Subspecialty Group revised: Inflammatory Arthritis Priority: 1 Prescheduling: None Patient education class: None Preschedule visit with Research Coordinator: no Patient needs to bring all outside imaging on CD: yes Outside biopsy slides needed prior to patient visit: no Thank you. Kael Lantigua Telephone Encounter - Nathalia Longoria - 02/11/2020 9:01 AM CDT New Patient Referral for: Rhueumtoid Arthritis OSM: OSM in chart Send Response to: RST [facility] SCHEDULING Name: Hilda Long [facility] Number: [id number] Birthdate: 1955 Email: [email or web address] Rheumatology Model of Care I have read the Medical Emergency directions as noted above: Yes I have read the Rheumatology Model of Care as noted above and agree to the process outlined: Yes Demographics Legal first name: Hilda Crane initial: M Last name: Mercedes date (mm/dd/yyyy): 1955 Who is filling out this form: Patient Have you been diagnosed with a rheumatic disease: Yes If yes, please list: Blood tests confirmed What are your goals for your visit to [facility]: Meet with a senior living advisor and get my inflammation down and hopefully in remission Who is referring you to [facility] (provide name and address): Dr Nisha Kelsey [address] [facility] [address] Is this a Assistant Sales Center Manager: No Is this your local provider that you would like us to communicate with: Yes What are your goals for your visit to [facility]: Meet with a senior living advisor and get my inflammation down and hopefully in remission Primary Symptom/Concern Primary Symptom/Concern: Describe your main medical symptoms and concerns: Pain, stiffness Primary Symptom/Concern: Has this symptom been present for less than 6 months or more than 6 months:Less than 6 months Primary Symptom/Concern: Have you previously been evaluated for this symptom: No Are there additional symptoms/concerns: Yes Secondary Symptom/Concern Secondary Symptom/Concern: Describe your main medical symptoms and concerns: Loss of strength, Secondary Symptom/Concern: Has this symptom been present for less than 6 months or more than 6 months: Less than 6 months Secondary Symptom/Concern: Have you previously been evaluated for this symptom: No Additional Symptoms/Concerns: Describe your medical symptoms and concerns: Tiredness Additional Symptoms/Concerns: Has this symptom been present for less than 6 months or more than 6 months: Less than 6 months Additional Symptoms/Concerns: Have you previously been evaluated for this symptom: No Are you currently taking any form of oral glucocorticoid (e.g., prednisone): Yes What is the current dose in m mg Are you currently taking any form of opioid or narcotic pain medication: Yes What is the medication name: Naproxen What is the dosage (mg) and frequency: 500mg 1 tablet twice a day Please list any current medications that you take for rheumatology-related conditions: Naproxen 500mg 1 tablet twice daily 20 mg Prednison 1 tablet dano Please list any medications you have previously taken for rheumatology-related conditions: Non Do you or your local provider feel you should see any specialists while at [facility]: Yes Please list any specialists that you or your local provider feel you should see while you are at [facility] and explain: Assistant Sales Center Manager How would you rate your overall health: Good Have you had a biopsy of tissue or organ related to your rheumatology problems: No Do you have a history of iodine contrast reaction: No Do you have a history of Gadolinium contrast reaction: No Are you on dialysis: No Have you had a kidney transplant: No Have you had low urine output or no urine output in the past 48 hours: No Do you have any implanted medical devices or pumps: No Are you diabetic: No Are you currently taking any dietary or herbal supplements: No Please list below any specific dates we should not use for scheduling within the next 12 weeks: I amavailable at any time What is the best phone number to reach you at: [phone] documented in this encounter Plan of Treatment Upcoming Encounters Date Type Specialty Care Team Description 03/06/2022 Clinical Communication Admitting/Central Scheduling 03/08/2022 Office Visit Rheumatology Tosha Leung, ADITHYA, C.N.P., D.N.P. [address] [place] [phone] documented as of this encounter Visit Diagnoses Not on filedocumented in this encounter
[2022-03-04 14:13] LABS: Basophils Absolute Auto 0.04 K/uL (0.00-0.30); Basophils Percent Auto 0.6 % (0.0-3.0); Eosinophils Percent Auto 1.5 % (0.0-7.0); Hematocrit 41.8 % (33.0-51.0); Hemoglobin* 13.6 gm/dL (12.0-16.0); Immature Granulocytes Abs Auto 0.01 K/uL (0.00-0.30); Lymphocytes Absolute Auto 1.53 K/uL (0.90-2.90); Lymphocytes Percent Auto 22.6 % (20-44); Mean Corpuscular HGB Conc 33 gm/dL (32-36); Mean Corpuscular Hemoglobin 29 pg (26-34); Mean Corpuscular Volume 89 fL (80-100); Monocytes Percent Auto 7.7 % (0.0-11.0); Neutrophils Absolute Auto 4.57 K/uL (1.7-7.0); Neutrophils Percent Auto 67.5 % (42.0-72.0); Platelet Count* 271 K/uL (140-440); RDW Coefficient of Variation % 14.4 % (11.5-15.5); Red Blood Count 4.68 m/uL (4.00-5.20); White Blood Count* 6.77 K/uL (4.50-11.00)
[2022-03-04 14:17] LABS: Slide Review Reflex No
[2022-03-04 14:56] LABS: Erythrocyte SedimentationRate* 7 mm/hr (2-20)
[2022-03-04 15:01] LABS: Aspartate Amino Transferase* 27 U/L (12-35); Creatinine* 0.8 mg/dL (0.5-1.5); Estimated Glomerular Filt Rate 82 ml/min
[2022-03-04 15:05] LABS: C Reactive Protein* 1.2 mg/dL (0.5-1.0)
[2022-06-18 17:17] LABS: Basophils Absolute Auto 0.05 K/uL (0.00-0.30); Basophils Percent Auto 0.9 % (0.0-3.0); Eosinophils Absolute Auto 0.05 K/uL (0.00-0.50); Eosinophils Percent Auto 0.9 % (0.0-7.0); Hematocrit 40.4 % (33.0-51.0); Hemoglobin* 12.8 gm/dL (12.0-16.0); Immature Granulocytes Abs Auto 0.01 K/uL (0.00-0.30); Immature Granulocytes Pct Auto 0.2 %; Mean Corpuscular HGB Conc 32 gm/dL (32-36); Mean Corpuscular Hemoglobin 29 pg (26-34); Mean Corpuscular Volume 91 fL (80-100); Monocytes Percent Auto 9.9 % (0.0-11.0); Neutrophils Percent Auto 61.1 % (42.0-72.0); Platelet Count* 350 K/uL (140-440); RDW Coefficient of Variation % 15.2 % (11.5-15.5); Red Blood Count 4.46 m/uL (4.00-5.20); White Blood Count* 5.56 K/uL (4.50-11.00)
[2022-06-18 17:20] LABS: Slide Review Reflex No
[2022-06-18 17:22] LABS: Aspartate Amino Transferase* 23 U/L (12-35); Creatinine* 0.7 mg/dL (0.5-1.5); Estimated Glomerular Filt Rate 96 ml/min
[2022-09-17 11:13] LABS: Basophils Absolute Auto 0.03 K/uL (0.00-0.30); Basophils Percent Auto 0.5 % (0.0-3.0); Eosinophils Absolute Auto 0.09 K/uL (0.00-0.50); Eosinophils Percent Auto 1.6 % (0.0-7.0); Hematocrit 42.1 % (33.0-51.0); Hemoglobin* 13.5 gm/dL (12.0-16.0); Lymphocytes Absolute Auto 1.44 K/uL (0.90-2.90); Lymphocytes Percent Auto 25.2 % (20-44); Mean Corpuscular HGB Conc 32 gm/dL (32-36); Mean Corpuscular Hemoglobin 28 pg (26-34); Mean Corpuscular Volume 89 fL (80-100); Monocytes Percent Auto 6.5 % (0.0-11.0); Neutrophils Absolute Auto 3.78 K/uL (1.7-7.0); Neutrophils Percent Auto 66.2 % (42.0-72.0); Platelet Count* 272 K/uL (140-440); RDW Coefficient of Variation % 14.9 % (11.5-15.5); Red Blood Count 4.75 m/uL (4.00-5.20); White Blood Count* 5.71 K/uL (4.50-11.00)
[2022-09-17 11:15] LABS: Slide Review Reflex No
[2022-09-17 11:21] LABS: Creatinine* 0.8 mg/dL (0.5-1.5); Estimated Glomerular Filt Rate 81 ml/min
[2022-09-17 11:22] LABS: Aspartate Amino Transferase* 29 U/L (12-35)
[2022-09-17 11:25] LABS: C Reactive Protein* 0.9 mg/dL (0.5-1.0)
== END 2023-05-22 15:20 | disposition home or self-care (01) ==
LOC: NPINS 14:47
PROVIDERS: PCP Internal Medicine; Visit Provider Nurse Practitioner
DX: M06.9 Rheumatoid arthritis, unspecified (principal); Z51.89 Encounter for other specified aftercare
CPT/HCPCS: 82565; 84450; 85025; 85651; 86140

== ENCOUNTER 2022-07-11 14:00 | Outpatient (CLI) | payer MEDICARE, OTHER, SELFPAY ==
[2022-07-11 17:09] LABS: Chloride* 106 mmol/L (96-114); Potassium* 4.4 mmol/L (3.6-5.1); Sodium* 138 mmol/L (135-149)
[2022-07-11 17:12] LABS: Blood Urea Nitrogen* 16 mg/dL (7-30); Carbon Dioxide* 25 mmol/L (20-32); Cholesterol* 166 mg/dL (90-199); Creatinine* 0.7 mg/dL (0.5-1.5); Estimated Glomerular Filt Rate 95 ml/min
[2022-07-11 17:13] LABS: Calcium* 9.6 mg/dL (8.4-10.6); Glucose* 106 mg/dL (60-115); HDL Cholesterol* 47 mg/dL (>=50); LDL Cholesterol Calculated 88 mg/dL (<100); Triglycerides* 157 mg/dL (40-149)
== END 2022-07-11 14:01 | disposition home or self-care (01) ==
PROVIDERS: PCP Internal Medicine; Visit Provider Internal Medicine
DX: I10 Essential (primary) hypertension (principal); E78.5 Hyperlipidemia, unspecified
CPT/HCPCS: 80048; 80061

== ENCOUNTER 2022-10-14 10:00 | Outpatient (CLI) | payer MEDICARE, OTHER, SELFPAY ==
--- NOTE | 2022-10-14 10:15 | CRLHL7_ITS ---
For Patients: As a result of the Century Cures Act, medical imaging exams and procedure reports are released immediately into your electronic medical record. You may view this report before your referring provider. If you have questions, please contact your health care provider. BILATERAL SCREENING MAMMOGRAM WITH COMPUTER-AIDED DETECTION AND TOMOSYNTHESIS CLINICAL HISTORY: Screening. TECHNIQUE: These mammographic images have been obtained using full-field digital technique. These mammographic images were interpreted with the benefit of computer-aided detection. Breast Tomosynthesis was used in this interpretation. COMPARISON FILM: 10/11/2021. BREAST COMPOSITION: The breasts are heterogeneously dense, which may obscure small masses. FINDINGS: Possible asymmetry RIGHT breast 10 o`clock position 6 cm from the nipple. Negative findings LEFT breast. IMPRESSION: Possible RIGHT breast asymmetry. Recommend CC and MLO spot compression view and a 90-degree lateral view. Additionally, ultrasound may be needed during the diagnostic evaluation. ASSESSMENT: BI-RADS Category 0: Incomplete: Need Additional Imaging Evaluation and/or Prior Mammograms for Comparison The [facility] will contact the patient for follow-up. A lay language report of this examination will be provided to the patient. Rika Monte M.D. Diagnostic/Breast Radiologist [email or web address] MARISA/patience morin/Dictated by: Rika Monte MD @ 10/14/2022 11:31:00 AM (Electronically Signed)
== END 2022-10-14 10:01 | disposition home or self-care (01) ==
LOC: MAMMO 10:01
PROVIDERS: PCP Internal Medicine; Visit Provider Internal Medicine
DX: Z12.31 Encounter for screening mammogram for malignant neoplasm of breast (principal); R92.2 Inconclusive mammogram
CPT/HCPCS: 77063; 77067

== ENCOUNTER 2022-10-23 08:32 | Outpatient (CLI) | payer MEDICARE, OTHER, SELFPAY ==
--- NOTE | 2022-10-23 08:45 | CRLHL7_ITS ---
For Patients: As a result of the Cures Act, medical imaging exams and procedure reports are released immediately into your electronic medical record. You may view this report before your referring provider. If you have questions, please contact your health care provider. DIAGNOSTIC RIGHT BREAST MAMMOGRAM WITH COMPUTER-AIDED DETECTION WITH TOMOSYNTHESIS, 10/23/2022 RIGHT BREAST ULTRASOUND, 10/23/2022 CLINICAL HISTORY: RIGHT breast mass/asymmetry. COMPARISON: 10/14/2022. TECHNIQUE: Digital RIGHT mammogram in 3 projections with tomosynthesis. Real-time ultrasound imaging of RIGHT breast with imaging documentation. Scanning was performed by both the technologist and the radiologist. BREAST COMPOSITION: The breasts are heterogeneously dense, which may obscure small masses. FINDINGS: 3D spot-compression CC/MLO and 3D true lateral RIGHT breast mammogram images submitted. Decreased conspicuity of previously noted asymmetric density. No architectural distortion. No adenopathy or suspicious calcifications. Targeted RIGHT breast ultrasound performed upper outer quadrant 10 o`clock 6 cm from the nipple. In this location, there is a circumscribed hypoechoic nodule measuring 10 x 4 x 7 millimeters, possible intramammary lymph node. IMPRESSION: Indeterminate hypoechoic solid nodule RIGHT breast 10 o`clock 6 cm from the nipple measuring 1 cm. RECOMMENDATIONS: Ultrasound-guided core needle biopsy. BI-RADS Category 4: Suspicious Results and recommendations discussed with the patient. A lay language report of this examination will be provided to the patient. Dictated by Manolo Castro MD @ 10/23/2022 10:04:25 AM PT/Dictated by: Manolo Castro MD @ 10/23/2022 10:04:00 AM (Electronically Signed)
--- NOTE | 2022-10-23 09:15 | CRLHL7_ITS ---
For Patients: As a result of the Century Cures Act, medical imaging exams and procedure reports are released immediately into your electronic medical record. You may view this report before your referring provider. If you have questions, please contact your health care provider. PLEASE SEE RIGHT DIAGNOSTIC MAMMOGRAM OF SAME DAY. CRL:tomy PT/Dictated by: Manolo Castro MD @ 10/23/2022 10:04:00 AM (Electronically Signed)
== END 2022-10-23 08:33 | disposition home or self-care (01) ==
LOC: MAMMO 08:32
PROVIDERS: PCP Internal Medicine; Visit Provider Internal Medicine
DX: N63.10 Unspecified lump in the right breast, unspecified quadrant (principal); R92.8 Other abnormal and inconclusive findings on diagnostic imaging of breast
CPT/HCPCS: 76642; 77065; G0279

== ENCOUNTER 2022-12-25 12:02 | Outpatient (REF) | payer MEDICARE, OTHER, SELFPAY ==
[2022-12-25 14:20] LABS: Basophils Absolute Auto 0.04 K/uL (0.00-0.30); Basophils Percent Auto 0.7 % (0.0-3.0); Eosinophils Absolute Auto 0.11 K/uL (0.00-0.50); Eosinophils Percent Auto 1.9 % (0.0-7.0); Hematocrit 39.6 % (33.0-51.0); Hemoglobin* 12.5 gm/dL (12.0-16.0); Immature Granulocytes Abs Auto 0.02 K/uL (0.00-0.30); Immature Granulocytes Pct Auto 0.3 %; Lymphocytes Absolute Auto 1.39 K/uL (0.90-2.90); Lymphocytes Percent Auto 23.4 % (20-44); Mean Corpuscular HGB Conc 32 gm/dL (32-36); Mean Corpuscular Hemoglobin 29 pg (26-34); Mean Corpuscular Volume 91 fL (80-100); Monocytes Percent Auto 9.1 % (0.0-11.0); Neutrophils Absolute Auto 3.84 K/uL (1.7-7.0); Neutrophils Percent Auto 64.6 % (42.0-72.0); Platelet Count* 274 K/uL (140-440); RDW Coefficient of Variation % 14.4 % (11.5-15.5); Red Blood Count 4.36 m/uL (4.00-5.20); White Blood Count* 5.94 K/uL (4.50-11.00)
[2022-12-25 14:25] LABS: Creatinine* 0.6 mg/dL (0.5-1.5); Estimated Glomerular Filt Rate 99 ml/min
[2022-12-25 14:26] LABS: Aspartate Amino Transferase* 23 U/L (12-35)
[2022-12-25 14:28] LABS: Slide Review Reflex No
[2022-12-25 14:29] LABS: C Reactive Protein* 1.5 mg/dL (0.5-1.0)
[2022-12-25 15:06] LABS: Erythrocyte SedimentationRate* 7 mm/hr (2-20)
== END 2022-12-25 12:03 | disposition home or self-care (01) ==
LOC: NPINS 12:02
PROVIDERS: PCP Internal Medicine; Visit Provider Nurse Practitioner
DX: M06.9 Rheumatoid arthritis, unspecified (principal)
CPT/HCPCS: 82565; 84450; 85025; 85651; 86140

== ENCOUNTER 2023-03-11 07:08 | Outpatient (CLI) | payer MEDICARE, OTHER, SELFPAY ==
--- NOTE | 2023-03-11 08:00 | W.ANESCHARGE ---
Anesthesia Charges Start Date/Time Anesthesia Start Date: 03/11/23 Anesthesia Start Time: 08:12 Stop Date/Time Anesthesia Stop Date: 03/11/23 Anesthesia Stop Time: 08:59
--- NOTE | 2023-03-11 09:04 | W.ANESCHARGE ---
Anesthesia Charges Start Date/Time Anesthesia Start Date: 03/11/23 Anesthesia Start Time: 08:12 Stop Date/Time Anesthesia Stop Date: 03/11/23 Anesthesia Stop Time: 08:59
== END 2023-03-11 07:09 | disposition home or self-care (01) ==
LOC: OP CLINIC 07:09
PROVIDERS: PCP Internal Medicine; Visit Provider Surgery
DX: Z12.11 Encounter for screening for malignant neoplasm of colon (principal); K63.5 Polyp of colon; K57.30 Diverticulosis of large intestine without perforation or abscess without bleeding; Z86.010 Personal history of colon polyps
CPT/HCPCS: 45380; 45385; 811; 88305; J2704

== ENCOUNTER 2023-05-13 10:57 | Outpatient (REF) | payer MEDICARE, OTHER, SELFPAY ==
[2023-05-13 11:32] LABS: Basophils Absolute Auto 0.04 K/uL (0.00-0.30); Basophils Percent Auto 0.8 % (0.0-3.0); Eosinophils Absolute Auto 0.06 K/uL (0.00-0.50); Eosinophils Percent Auto 1.2 % (0.0-7.0); Hematocrit 39.3 % (33.0-51.0); Hemoglobin* 12.2 gm/dL (12.0-16.0); Immature Granulocytes Abs Auto 0.01 K/uL (0.00-0.30); Immature Granulocytes Pct Auto 0.2 %; Lymphocytes Absolute Auto 1.21 K/uL (0.90-2.90); Lymphocytes Percent Auto 25.1 % (20-44); Mean Corpuscular HGB Conc 31 gm/dL (32-36); Mean Corpuscular Hemoglobin 28 pg (26-34); Mean Corpuscular Volume 90 fL (80-100); Monocytes Percent Auto 8.5 % (0.0-11.0); Neutrophils Absolute Auto 3.09 K/uL (1.7-7.0); Neutrophils Percent Auto 64.2 % (42.0-72.0); Platelet Count* 264 K/uL (140-440); Red Blood Count 4.37 m/uL (4.00-5.20); White Blood Count* 4.82 K/uL (4.50-11.00)
[2023-05-13 11:35] LABS: Slide Review Reflex No
[2023-05-13 11:37] LABS: Aspartate Amino Transferase* 42 U/L (12-35); Creatinine* 0.6 mg/dL (0.5-1.5); Estimated Glomerular Filt Rate 99 ml/min
[2023-05-13 11:41] LABS: C Reactive Protein* 1.5 mg/dL (0.5-1.0)
[2023-05-13 12:31] LABS: Erythrocyte SedimentationRate* 7 mm/hr (2-20)
== END 2023-05-13 10:58 | disposition home or self-care (01) ==
LOC: NPINS 10:57
PROVIDERS: PCP Internal Medicine; Visit Provider Nurse Practitioner
DX: M06.9 Rheumatoid arthritis, unspecified (principal)
CPT/HCPCS: 82565; 84450; 85025; 85651; 86140

== ENCOUNTER 2023-07-17 08:43 | Outpatient (CLI) | payer MEDICARE, OTHER, SELFPAY ==
--- OUTSIDE RECORDS SUMMARY | 2023-07-18 11:34 | XMS_ITS | Encounter Summary ---
Author Name Unknown Organization [facility] Address [address] [place] [address] Care Team Providers Care Well Puller Name Role Phone Elsewhere, Pcp Primary Care Provider Unavailabl e Reason for Visit * Reason Onset Date Comments Pre-visit Intake 05/14/2023 Encounter Details Date Type Department Care Team (Latest Contact Info) Description 05/14/2023 9:00 AM METAL TURNER Clinical Communication Virtual Review in [place], [place] [address] [place], [place] [phone] Pre-visit Intake Social History Tobacco Use Types Packs/Day Years Used Date Smoking Tobacco: Former Cigarettes 0.8 0 1971 - 07/03/1999 Passive Smoke Exposure: Never Smokeless Tobacco: Never Tobacco Cessation:Counseling Given: Not Answered Alcohol Use Standard Drinks/Week Comments Yes 3 (1 standard drink = 0.6 oz pur e alcohol) 2 drinks per week. Humiliation, Afraid, Rape, and Kick questionnair e Answer Date Recorded Within the last year, have y ou been afraid of your partner or ex-partner? No 09/17/2022 Within the last year, have y ou been humiliated or emotionally abused in other ways by your partner or ex-partner? No Within the last year, have y ou been kicked, hit, slapped, or otherwise physically hurt by your partner or ex-partner? No 09/17/2022 Within the last year, have y ou been raped or forced to have any kind of sexual activity by your partner or ex-partner? No 09/17/2022 Social Connection and Isolat ion Panel [NHANES] Answer Date Recorded In a typical week, how many times do you talk on the phone with family, friends, or neighbors? More than three times a week 09/17/2022 How often do you get togethe r with friends or relatives? Twice a week 09/17/2022 How often do you attend chur ch or denominational services? 1 to 4 times per year 09/17/2022 Do you belong to any clubs o r organizations such as rastafari groups, unions, fraternal or athletic groups, or school groups? No 09/17/2022 How often do you attend meet ings of the clubs or organizations you belong to? Never 09/17/2022 Are you , , di vorced, , never , or living with a partner? 09/17/2022 AUDIT-C Answer Date Recorded Q1: How often do you have a drink containing alc ohol? 2-4 times a month 09/17/2022 Q2: How many drinks containi ng alcohol do you have on a typical day when you are drinking? 1 or 2 09/17/2022 Q3: How often do you have si x or more drinks on one occasion? Never 09/17/2022 Overall Financial Resource Strain (CARDIA) Answe r Date Recorded How hard is it for you to pa y for the very basics like food, housing, medical care, and heating? Not hard at all 09/17/2022 [facility] Occupat ional Health - Occupational Stress Questionnaire Answer Date Recorded Do you feel stress - tense, restless, nervous, or anxious, or unable to sleep at night because your mind is troubled all the time - these days? Not at all 09/17/2022 Exercise Vital Sign Answer Date Recorde d On average, how many days pe r week do you engage in moderate to strenuous exercise (like a brisk walk)? 1 day 09/17/2022 On average, how many minutes do you engage in exercise at this level? 0 min 09/17/2022 Hunger Vital Sign Answer Date Recorded Within the past 12 months, y ou worried that your food would run out before you got the money to buy more. Never true 09/18/19 23 Within the past 12 months, t he food you bought just didn't last and you didn't have money to get more. Never true 09/17/2022 PRAPARE - Transportation Answer Date Re corded In the past 12 months, has l ack of transportation kept you from medical appointments or from getting medications? No 08/22 In the past 12 months, has l ack of transportation kept you from meetings, work, or from getting things needed for daily living? No 09/17/2022 Housing Stability Vital Sign Answer Víctor e Recorded In the last 12 months, was t here a time when you were not able to pay the mortgage or rent on time? No 09/17/2022 In the last 12 months, how many places have you lived? 1 09/17/2022 In the last 12 months, was t here a time when you did not have a steady place to sleep or slept in a fci (including now)? No 09/17/2022 Nutrition Answer Date Recorded Nutrition: EVOO Fat Source No 09/17 On average, how many serving s of fruits and vegetables do you eat per day (serving size is equal to 1 cup or approximately the size of a tennis ball)? 2-3 09/17/2022 Dental Answer Date Recorded Dental: Regular Dentist Yes 08/11/19 Employment Answer Date Recorded Employment status Retired 09/17/2022 Education Answer Date Recorded What is the highest level of school you have completed or the highest degree you have received? 12th grade 04/07/2020 Sex and Gender Information Value Date Recorded Sex Assigned at Female 03/31/2021 8:17 PM CDT Gender Identity Female 03/31/2021 8:17 PM CDT Sexual Orientation Straight 05/03/2020 5: 47 PM METAL TURNER documented as of this encounter Plan of Treatment Not on file documented as of this encounter Visit Diagnoses Not on filedocumented in this encounter Additional Health Concerns Infection Onset Date Last Indicated Resolved Time Protective Environment 10/11/2022 10/11/2022 documented as of this encounter Care Teams Well Puller Relationship Specialty Start Date End Date Elsewhere, Pcp PCP - General Internal Medicine 09/23/22 documented as of this encounter
--- OUTSIDE RECORDS SUMMARY | 2023-07-18 11:34 | XMS_ITS | Encounter Summary ---
Author Name Unknown Organization [facility] Address [address] [place] [id number] Care Team Providers Care Public Relations Account Supervisor Name Role Phone Elsewhere, Pcp Primary Care Provider Unavailabl e Reason for Referral * Outpatient (Routine) - Authorized Specialty Diagnoses / Procedures Referred By Nitesh barragan Referred To Contact Rheumatology Diagnoses Arthritis Rheumatoid (HCC) High Risk Medication Tosha Leung APRN, C.N.P., D.N.P. [address] [place] [phone] [facility] Referral ID Status Reason Start Date Expiration Date V isits Requested Visits Authorized [id number] Authorized 05/19/2023 05/18/2026 1 1 LE BASS PLAYER Reason for Visit * Outpatient (Routine) - Closed Specialty Diagnoses / Procedures Referred By Nitesh barragan Referred To Contact Rheumatology Diagnoses Arthritis Rheumatoid (HCC) High Risk Medication Tosha Leung APRN, C.N.P., D.N.P. [address] [place] [phone] [facility] Referral ID Status Reason Start Date Expiration Date Visits Re quested Visits Authorized [id number] Closed 12/31/2022 12/30/2025 1 1 Encounter Details Date Type Department Care Team (Latest Contact Info) Description 05/19/2023 9:30 AM DOUBLE BASS PLAYER Office Visit Division of Rheumatology in [place], [place] [address] [place] [phone] Tosha Leung, ADITHYA, C.N.P., D.N.P. 200 [place] [phone] Arthritis Rheumatoid (HCC); High Risk Medication Social History Tobacco Use Types Packs/Day Years Used Date Smoking Tobacco: Former Cigarettes 0.8 0 1971 - 07/03/1999 Passive Smoke Exposure: Never Smokeless Tobacco: Never Alcohol Use Standard Drinks/Week Comments Yes 3 [...] 09/17/2022 How often do you attend chur or moravian services? 1 to 4 times per year 09/17/2022 Do you belong to any clubs o r organizations such as baptist groups, unions, fraternal or athletic groups, or [...] and heating? Not hard at all 09/17/2022 [facility] - Occupational Stress [...] slept in a nursing home (including now)? No 09/17/2022 Nutrition Answer Date Recorded Nutrition: EVOO Fat Source No 09/17 On average, how many serving s of fruits and vegetables do you eat per day (serving size is equal to 1 cup or approximately the size of a tennis ball)? 2-3 09/17/2022 Dental Answer Date Recorded Dental: Regular Dentist Yes 08/11/19 21 Employment Answer Date Recorded Employment status Retired 09/17/2022 Education Answer Date Recorded What is the highest level of school you have completed or the highest degree you have received? 12th grade 04/07/2020 Sex and Gender Information Value Date Recorded Sex Assigned at Female 03/31/2021 8:17 PM CDT Gender Identity Female 03/31/2021 8:17 PM CDT Sexual Orientation Straight 05/03/2020 5: 47 PM DOUBLE BASS PLAYER documented as of this encounter Last Filed Vital Signs Vital Sign Reading Time Taken Comments Blood Pressure 135/85 05/19/2023 9:22 AM DOUBLE BASS PLAYER Pulse 94 05/19/2023 9:22 AM DOUBLE BASS PLAYER Temperature 36.7 ??C (98.1 ??F) 05/19/2023 9:22 AM CS T Respiratory Rate - - Oxygen Saturation - - Inhaled Oxygen Concentration - - Weight 117 kg (257 lb 15 oz) 05/19/2023 9:22 AM DOUBLE BASS PLAYER Height 177.8 cm (5' 10) 05/19/2023 9:22 AM DOUBLE BASS PLAYER Body Mass Index 37.01 05/19/2023 9:22 AM DOUBLE BASS PLAYER documented in this encounter Progress Notes * Tosha Leung, ADITHYA, C.N.P., D.N.P. - 05/19/2023 9:30 AM CST SUBJECTIVE CHIEF COMPLAINT / REASON FOR VISIT Hilda Long is a 67 y.o. female who presents for follow up of rheumatoid arthritis. HISTORY OF PRESENT ILLNESS Mrs. Long was evaluated initially by Dr. Heard in March 2020 for seropositive rheumatoid arthritis. She was started on methotrexate and followed with our nursing team and the dose was graduallyincreased. I met her for the first time in December 2020 at which time she was doing quite well, but had been unable to taper off prednisone. I recommended maximizing methotrexate to 25 mg weekly and then trying totaper prednisone again. In March 2021, she was [...] to try sulfasalazine as the next step. In November 2021, she reported some improvement since adding sulfasalazine, particularly less shooting pains. In general, she felt overall improved. There was no synovitis on exam. The plan was to continue her current regimen of methotrexate 25 mg weekly, hydroxychloroquine 400 mg daily, sulfasalazine 1000 mg twice daily. In February 2022 she remained on triple therapy. She was doing well overall with the exception of some trochanteric bursitis symptoms. In September 2022, she remained on triple therapy. Her greatest complaint was bilateral trochanteric bursitis as well as bilateral knee symptoms when going down steps. Plan was to continue her current regimen. We did arrange for bilateral trochanteric bursa injections, however she wanted to wait until her next follow-up appointment for those. In December 2022, she had bilateral trochanteric bursa injections completed. She otherwise was doing relatively well and no changes were made to her medication. She returns today for follow-up. She continues taking hydroxychloroquine 400 mg daily, [id number] mg weekly and sulfasalazine 1000 mg twice daily. She feels as though she is done well since I saw her in December. The trochanteric bursa injections were helpful and those symptoms remain quiescent. She in general describe some stiffness, primarily in knees and hips with navigating steps. Not reallynighttime pain that prevents her from sleeping. No joint swelling. Over the last few days she has noticed some fleeting pain in her hands but nothing that persists, it only lasts a short time and again this has only been going on for a few days. She denies any difficulty with recent infections. She did update influenza and COVID-19 vaccines this fall. She is planning to schedule RSV vaccine. Family history: Brother with scleroderma Social history: She lives with her who farms. 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 She is a previous smoker quit in 1998. She smoked for about 20 years.Drinks alcohol socially. Previous Reports Reviewed:lab reports and office notes The following portions of the patient's history were reviewed and updated as appropriate: allergies, current medications, family history, medical history, social history, surgical history, and problem list. REVIEW OF SYSTEMS Pertinent positives and negatives as documented in the above history of present illness. REVIEW OF SYSTEMS OBJECTIVE PHYSICAL EXAMINATION Vitals reviewed. Constitutional Appearance: [...] to person, place, and time. Lab: Labs were completed on 05/13/2023 locally include a stable CBC with differential, creatinine. AST slightly elevated at 42. CRP stable but elevated at 15. ASSESSMENT / PLAN #1 Arthritis Rheumatoid (HCC) Overall, Hilda is stable from a rheumatoid arthritis standpoint. There is no synovitis on exam. Her CRP is stable but does remain elevated. AST also slightly elevated and we will continue to monitor this. There is no indication to increase her therapy at this time. I will plan to follow-up with her in 6 months. She can contact me sooner with any questions or concerns. We did review vaccines and she plans to schedule RSV vaccine soon. #2 High Risk Medication Recommend CBC with differential, creatinine, AST every 3 months while taking methotrexate and or sulfasalazine. She has a lab letter to complete these locally between visits. Plaquenil monitoring eye exam will be due in September 2023. She tells me today that she already has that scheduled. I answered the patient's questions to the best of my ability. The patient seemed pleased with our interaction. If she should have any additional questions or concerns, I have asked that she contact us at that time. PATIENT EDUCATION Ready to learn, no apparent learning barriers were identified; learning preferences include listening. Explained diagnosis and treatment plan; patient expressed understanding of the content. LE BASS PLAYER documented in this encounter Plan of Treatment Scheduled Orders Name Type Priority Associated Diagnoses Orde r Schedule CBC with Differential, Blood Lab Routine Arthritis Rheumatoid (HCC) High Risk Medication Expected: 11/17/2023 (Approximate), Expires: 05/19/2024 Sedimentation Rate Lab Routine Arthritis Rheumatoid (HCC) High Risk Medication Expected: 11/17/2023 (Approximate), Expires: 05/19/2024 CRP (C-Reactive Protein) Lab Routine Arthritis Rheumatoid (HCC) High Risk Medication Expected: 11/17/2023 (Approximate), Expires: 05/19/2024 AST (Aspartate Aminotransferase) Lab Routine Arthritis Rheumatoid (HCC) High Risk Medication Expected: 11/17/2023 (Approximate), Expires: 05/19/2024 Creatinine with Estimated GFR Lab Routine Arthritis Rheumatoid (HCC) High Risk Medication Expected: 11/17/2023 (Approximate), Expires: 05/19/2024 Scheduled Referrals Name Type Priority Associated Diagnoses Order Schedule Rheumatology office visit (clinic) Outpatient Referral Routine Arthritis Rheumatoid (HCC) High Risk Medication Expected: 11/17/2023 (Approximate), Expires: 08/19/2024 documented as of this encounter Visit Diagnoses Diagnosis Arthritis Rheumatoid (HCC) High Risk Medication documented in this encounter Additional Health Concerns Infection Onset Date Last Indicated Resolved Time Protective Environment 10/11/2022 10/11/2022 documented as of this encounter Care Teams Public Relations Account Supervisor Relationship Specialty Start Date End Date Elsewhere, Pcp PCP - General Internal Medicine 09/23/22 documented as of this encounter
--- OUTSIDE RECORDS SUMMARY | 2023-07-18 11:34 | XMS_ITS ---
Author Name Unknown Organization [facility] Address [address] [place] [address] Care Team Providers Care Hhas Name Role Phone Unavailable Unavailable Unavailable Surgery Details Not on file Complications Check Surgery Details section. Procedure Estimated Blood Loss Check Surgery Details section. Procedure Findings Check Surgery Details section. Procedure Specimens Taken Check Surgery Details section.
--- OUTSIDE RECORDS SUMMARY | 2023-07-18 11:34 | XMS_ITS | Clinical Summary ---
Author Name Unknown Organization [facility] Address [place], [place] [address] Care Team Providers Care Plate Straightener Name Role Phone Sandra Slade MD Primary Care Provider [phone] Allergies No known active allergies Medications Medication Sig Dispensed Refills Start Date End Date Status FLONASE 50 MCG/ACTUATION NASAL SPRAYIndications:Chr onic rhinitis inhale 1 spray in each nostril by intranasal route once daily 1 11 06/17/2007 Active IMITREX 50 MG TABIndications:Heada kip(784.0) take 2 tablets (100 mg) by oral route x 1 dose with fluids as early as possible after the onset of a migraine attack; if headache returns, the dose may be repeated after 2 hours, not to exceed a total daily dose of 200mg 9 11 06/17/2007 Active Active Problems Problem Noted Date Diagnosed Date Mixed hyperlipidemia 06/29/2007 Migraine, unspecified, witho ut mention of intractable migraine without mention of status migrainosus 06/17/2007 Routine general medical exam ination at a health care facility 06/17/2007 Chronic rhinitis 06/17/2007 Migraine Hedadaches 06/17/2007 Immunizations Name Administration Dates Next Due Influenza, IIV3 (Age >=3 years) 04/12/2008,04/23 Td (Age >=7 Years) 10/11/2003 Family History Medical History Relation Name Comments Diabetes Mother Dx'd @ 72 yo Relation Name Status Comments Father Alive Mother Alive Social History Tobacco Use Types Packs/Day Years Used Date Smoking Tobacco: Former Comments:1999 Alcohol Use Standard Drinks/Week Comments Yes 1.7 (1 standard drink = 0.6 oz p ure alcohol) minimal Sex and Gender Information Value Date Recorded Sex Assigned at Not on file Gender Identity Not on file Sexual Orientation Not on file Obstetrics History Para Term AB IAB SAB Ectopic Multiple Livin g Live Births 2 2 2 Date Outcome GA Total Labor Labor/2nd/3rd Weight Sex Delivery Anes PTL Emperatriz A1 A5 Name Cl in Para Para Last Filed Vital Signs Vital Sign Reading Time Taken Comments Blood Pressure 132/84 04/12/2008 2:58 PM CDT Pulse 72 04/12/2008 2:58 PM CDT Temperature 36.3 ??C (97.4 ??F) 04/12/2008 2:58 PM CD T Respiratory Rate - - Oxygen Saturation - - Inhaled Oxygen Concentration - - Weight 91.2 kg (201 lb) 04/12/2008 2:58 PM CDT Height 175.3 cm (5' 9) 06/17/2007 8:21 AM CONCRETE BLOCK PLANT SUPERVISOR Body Mass Index 29.68 06/17/2007 8:21 AM CONCRETE BLOCK PLANT SUPERVISOR Plan of Treatment Health Maintenance Due Date Last Done Comments COVID-19 vaccine series (#1) 1956 Tdap 1967 Depression screening for age 12+ 1968 BMI (ht and wt on same day) for age 18+ 1974 Hepatitis C screening for age 18-79 1974 Zoster (shingles) series for age 50+ (1 of 2) 2006 Mammogram for age 45-75 06/29/2008 06/29/2007 Lipids for age 45-75 06/17/2012 06/17/2007 Tetanus booster 10/10/2013 10/11/2003 Colonoscopy through age 75 07/23/2017 07/23/2007 DEXA/DXA scan for age 65+ 2021 Pneumococcal series for age 65+ (1 of 1 - PCV) 2021 Influenza for age 65+ 02/21/2023 04/12/2008, 007 Care Teams Plate Straightener Relationship Specialty Start Date End Date Sandra Slade MD [address] [place] [address] PCP - General Internal Medicine 11/07/20
--- OUTSIDE RECORDS SUMMARY | 2023-07-18 11:34 | XMS_ITS | Referral Summary ---
Author Name Unknown Organization [facility] Address [address] [place] [id number] Care Team Providers Care Frozen Food Department Manager Name Role Phone Elsewhere, Pcp Primary Care Provider Unavailabl e Source Comments Patient records contain information from all sites at [facility]. For routine questions regarding patient records, call [phone] during business hours, M-F 8:00 AM - 5:00 PM Central Time. Record requests for emergency care only can be directed to [phone] at any time.[facility] Encounters Date Type Department Care Team Description 05/19/2023 9:30 AM BUSINESS EDUCATION TEACHER Office Visit Division of Rheumatology in [address] [phone] Tosha Leung APRN, C.N.P., D.N.P. Arthritis Rheumatoid (HCC); High Risk Medication 05/14/2023 9:00 AM BUSINESS EDUCATION TEACHER Clinical Communication Virtual Review in [place], [place] [address] [place] [address] Pre-visit Intake 05/13/2023 Clinical Communication Division of Rheumatology in [address] [phone] Tosha Leung APRN, C.N.P., D.N.P. Lab Monitoring (Collected 05/13/23) from Last 3 Months Allergies No known active allergies Medications Medication Sig Dispensed Refills Start Date End Date Status lisinopriL (PRINIVIL,ZESTRIL) 20 mg tablet Take 20 mg by mouth daily. 0 04/05/2020 Active metoprolol succinate (TOPROL-XL) 25 mg 24 hr tablet Take 25 mg by mouth daily. 0 04/05/2020 Active simvastatin (ZOCOR) 10 mg tablet Take 10 mg by mouth at bedtime. 0 03/31/2020 Active codeine-guaiFENesin (ROBITUSSIN-AC) 10-100 mg/5 mL liquid Take 5 mL by mouth every 4 (four) hours as needed. 0 07/11/2022 Active chebgnvikerb-zfzw-NV (CENTRUM COMPLETE) 18-400 mg-mcg per tablet Take 1 tablet by mouth daily. 0 Active cholecalciferol (Vitamin D3) 50 mcg (2,000 Unit) tablet Take 50 mcg by mouth daily. 0 Active folic acid 1 mg tabletIndications:Ar thritis Rheumatoid (HCC) Take 1 tablet (1,000 mcg total) by mouth daily. 90 tablet 3 05/19/2023 Active hydroxychloroquine (PLAQUENIL) 200 mg tabletIndications:Ar thritis Rheumatoid (HCC) Take 2 tablets (400 mg total) by mouth daily. 180 tablet 1 05/19/2023 Active methotrexate 2.5 mg tabletIndications:Ar thritis Rheumatoid (HCC) Take 10 tablets (25 mg total) by mouth once a week. 120 tablet 1 05/19/2023 Active sulfaSALAzine (AZULFIDINE EN-TABS) 500 mg EC tabletIndications:Ar thritis Rheumatoid (HCC) Take 2 tablets (1,000 mg total) by mouth 2 (two) times a day. 360 tablet 1 05/19/2023 Active Active Problems Problem Noted Date Diagnosed Date Arthritis Rheumatoid 07/19/2020 Monitoring For Therapeutic Drug Therapy 07/19/19 21 Immunizations Name Administration Dates Next Due Influenza, Quadrivalent, Adjuvanted, Preservativ e Free 03/28/2021 Social History Tobacco Use Types Packs/Day Years [...] How often do you attend chur or scientology services? 1 to 4 times per year 09/17/2022 Do you belong to any clubs o r organizations such as tenriism groups, unions, fraternal or athletic groups, or [...] and heating? Not hard at all 09/17/2022 [facility] Occupat ional Health - Occupational Stress [...] Sexual Orientation Straight 05/03/2020 5: 47 PM BUSINESS EDUCATION TEACHER Last Filed Vital Signs Vital Sign Reading Time Taken Comments Blood Pressure 135/85 05/19/2023 9:22 AM BUSINESS EDUCATION TEACHER Pulse 94 05/19/2023 9:22 AM BUSINESS EDUCATION TEACHER Temperature 36.7 ??C (98.1 ??F) 05/19/2023 9:22 AM CS T Respiratory Rate - - Oxygen Saturation - - Inhaled Oxygen Concentration - - Weight 117 kg (257 lb 15 oz) 05/19/2023 9:22 AM BUSINESS EDUCATION TEACHER Height 177.8 cm (5' 10) 05/19/2023 9:22 AM BUSINESS EDUCATION TEACHER Body Mass Index 37.01 05/19/2023 9:22 AM BUSINESS EDUCATION TEACHER Plan of Treatment Not on file Medical Devices Implanted Type Area Fieldwork Coordinator Device Identifier Shelf Expiration Date Model / Serial / Lot Imaging Marker Imaging Marker Right: Breast Procedures Procedure Name Priority Date/Time Associated Diagnosis Comments C-REACTIVE PROTEIN (CRP), S/P Routine 05/13/2023 11:18 AM BUSINESS EDUCATION TEACHER ASPARTATE AMINOTRANSFERASE (AST), S/P Routine 05/13/2023 11:18 AM BUSINESS EDUCATION TEACHER CREATININE WITH EGFR, S/P Routine 05/13/2023 11:18 AM BUSINESS EDUCATION TEACHER SEDIMENTATION RATE, B Routine 05/13/2023 11:18 AM BUSINESS EDUCATION TEACHER CBC WITH DIFFERENTIAL, B Routine 023 11:18 AM BUSINESS EDUCATION TEACHER from Last 3 Months Results * Sedimentation Rate (05/13/2023 11:18 AM BUSINESS EDUCATION TEACHER) EXT Sedimentation Rate 7 2 - 20 OTHER (SPECIFY IN HAT CLEANER) Blood (Blood, Venous) Narrative Resulting Agency Comment [facility] Tosha Leung APRN, C.N.P., D.N.P. LAB B LOOD ADD-ON OTHER (SPECIFY IN HAT CLEANER) N/A * CBC with Differential, Blood (05/13/2023 11:18 AM BUSINESS EDUCATION TEACHER) EXT Platelet Count 264 140 - 440 OTHER (SPECIFY IN HAT CLEANER) EXT Neutrophils 3.09 1.7 - 7.0 OTHE R (SPECIFY IN HAT CLEANER) EXT Hemoglobin 12.2 12.0 - 16.0 OTHER (SPECIFY IN HAT CLEANER) EXT White Blood Cell (WBC) Count 4.8 4.5 - 11.0 OTHER (SPEC AMELIE IN HAT CLEANER) Blood (Blood, Venous) Narrative Resulting Agency Comment [facility] Tosha Leung APRN, C.N.P., D.N.P. LAB B LOOD ADD-ON Performing Organization Address City/[facility]/ZIP Co de Phone Number OTHER (SPECIFY IN HAT CLEANER) N/A * (ABNORMAL) CRP (C-Reactive Protein) (05/13/2023 11:18 AM BUSINESS EDUCATION TEACHER) [facility] EXT C-Reactive Protein Quantative 15.0(A) 5.0 - 10.0 OTHER (SPECIFY IN HAT CLEANER) Blood (Blood, Venous) Narrative Resulting Agency Comment [facility] Tosha Leung APRN, C.N.P., D.N.P. LAB B LOOD ADD-ON Performing Organization Address [facility] de Phone Number OTHER (SPECIFY IN HAT CLEANER) N/A * (ABNORMAL) AST (Aspartate Aminotransferase) (05/13/2023 11:18 AM BUSINESS EDUCATION TEACHER) [facility] EXT AST 42(A) 12 - 35 OTHER (SPE CIFY IN HAT CLEANER) Blood (Blood, Venous) Narrative Resulting Agency Comment [facility] Tosha Leung APRN, C.N.P., D.N.P. LAB B LOOD ADD-ON Performing Organization Address [facility] de Phone Number OTHER (SPECIFY IN HAT CLEANER) N/A * Creatinine with Estimated GFR (05/13/2023 11:18 AM BUSINESS EDUCATION TEACHER) [facility] EXT Creatinine 0.6 0.5 - 1.5 mg/dL OTHER (SPECIFY IN HAT CLEANER) Blood (Blood, Venous) Narrative Resulting Agency Comment [facility] Tosha E Xochitl HAJI C.N.P., Iker HOLMAN B CHARLES ADD-ON OTHER (SPECIFY IN HAT CLEANER) N/A from Last 3 Months Additional Health Concerns Infection Onset Date Last Indicated Protective Environment 10/11/2022 3 Care Teams Frozen Food Department Manager Relationship Specialty Start Date End Date Elsewhere, Pcp PCP - General Internal Medicine 09/23/22
--- OUTSIDE RECORDS SUMMARY | 2023-07-18 11:34 | XMS_ITS | Clinical Summary ---
Author Name Unknown Organization [facility] Address [address] [place] [address] Care Team Providers Care Power And Recovery Superintendent Name Role Phone Elsewhere, Pcp Primary Care Provider Unavailabl e Source Comments Patient records contain information from all sites at [facility]. For routine questions regarding patient records, call [phone] during business hours, M-F 8:00 AM - 5:00 PM Central Time. Record requests for emergency care only can be directed to [phone] at any time.[facility] Allergies No known active allergies Medications Medication [...] (four) hours as needed. 0 07/11/2022 Active lgzhosdrqsct-lddi-IN (CENTRUM COMPLETE) 18-400 mg-mcg per tablet Take [...] Monitoring For Therapeutic Drug Therapy 07/19/19 21 Encounters Date Type Department Care Team Description 05/19/2023 9:30 AM [facility] Office Visit Division of Rheumatology in [address] [phone] Tosha Leung APRN, C.N.P., D.N.P. Arthritis Rheumatoid (HCC); High Risk Medication 05/14/2023 9:00 AM [facility] Clinical Communication Virtual Review in [address] [address] Pre-visit Intake 05/13/2023 Clinical Communication Division of Rheumatology in [address] [phone] Tosha Leung APRN, C.N.P., D.N.P. Lab Monitoring (Collected 05/13/23) from Last 3 Months Immunizations Name Administration Dates Next Due Influenza, Quadrivalent, Adjuvanted, Preservativ e Free 03/28/2021 Family History Medical History Relation Name Comments Clotting disorder Brother Manolo Finger Kidney cancer Father William Finger Prostate cancer Father William Finger Skin cancer Father William Finger Rheum arthritis Maternal Grandmother Susan Leahyl Breast cancer Mother Amanda Finger Diabetes Mother Amanda Finger Diabetes Sister Vanessa Mann Obesity Sister Vanessa Mann Relation Name Status Comments Brother Manolo Finger Father William Finger Maternal Grandmother Susan Eul Mother Amanda Finger Sister Vanessa Mann Social [...] often do you attend chur ch or sikh services? 1 to 4 times per year 09/17/2022 Do you belong to any clubs o r organizations such as restorationism groups, unions, fraternal [...] and heating? Not hard at all 09/17/2022 [facility] of Occupat ional Health - Occupational Stress [...] place to sleep or slept in a usp (including now)? No 09/17/2022 Nutrition Answer Date [...] Sexual Orientation Straight 05/03/2020 5: 47 PM [facility] INTERNAL MEDICINE Last Filed Vital Signs Vital Sign Reading Time Taken Comments Blood Pressure 135/85 05/19/2023 9:22 AM [facility]IC[facility] Pulse 94 05/19/2023 9:22 AM [facility] Temperature 36.7 ??C (98.1 ??F) 05/19/2023 9:22 AM CS T Respiratory Rate - - Oxygen Saturation - - Inhaled Oxygen Concentration - - Weight 117 kg (257 lb 15 oz) 05/19/2023 9:22 AM [facility] Height 177.8 cm (5' 10) 05/19/2023 9:22 AM [facility] Body Mass Index 37.01 05/19/2023 9:22 AM [facility] Plan of Treatment Health Maintenance Due Date Last Done Comments Bone Density Scan (Osteoporo sis Screen) 1956 CT Colonography 1956 Cologuard 1956 Colonoscopy 1956 Colorectal Cancer Surveillance 1956 Fasting Glucose for Diabetes Screening 1955 Mammogram 1956 Potassium Level 1956 Sodium Level 1956 Pneumococcal vaccine (65+ years) (3 of 3 - PPSV23 or PCV20) 01/20/2023 01/24/2022, 01/20/2018 Depression Screening (Annual PHQ-2) 2023 Fall Risk Screen (Annual) 2023 Creatinine Level (Kidney Function Test) 05/13/2024 05/13/2023, 12/25/2022, 09/17/2022, Additional history exists DTaP,Tdap,and Td Vaccines (3 - Td or Tdap) 10/01/2032 10/01/2022, 04/23/2012 Zoster Vaccines Completed 12/08/2018, 01/20/2018 Hydroxychloroquine (PLAQUENI L) Baseline Exam Completed 10/04/2022 COVID-19 Vaccine Completed 03/21/2023, , 02/13/2021, Additional history exists Influenza Vaccine Completed 03/21/2023, , 03/28/2021, Additional history exists HPV Vaccines Aged Out No longer eligi ble based on patient's age to complete this topic Medical Devices Implanted Type Area Assistant Brand Manager Device Identifier Shelf Expiration Date Model / Serial / Lot Imaging Marker Imaging Marker Right: Breast Procedures Procedure Name Priority Date/Time Associated Diagnosis Comments C-REACTIVE PROTEIN (CRP), S/P Routine 05/13/2023 11:18 AM [facility] ASPARTATE AMINOTRANSFERASE (AST), S/P Routine 05/13/2023 11:18 AM [facility] CREATININE WITH EGFR, S/P Routine 05/13/2023 11:18 AM [facility] SEDIMENTATION RATE, B Routine 05/13/2023 11:18 AM [facility] CBC WITH DIFFERENTIAL, B Routine 023 11:18 AM [facility] from Last 3 Months Results * Sedimentation Rate (05/13/2023 11:18 AM [facility]IC[facility]) EXT Sedimentation Rate 7 2 - 20 OTHER (SPECIFY IN CIRCUIT BREAKER ASSEMBLER) Blood (Blood, Venous) Narrative Resulting Agency Comment [facility] Tosha Leung APRN C.N.P., D.N.P. LAB B LOOD ADD-ON OTHER (SPECIFY IN CIRCUIT BREAKER ASSEMBLER) N/A * CBC with Differential, Blood (05/13/2023 11:18 AM [facility] MEDICINE) EXT Platelet Count 264 140 - 440 OTHER (SPECIFY IN CIRCUIT BREAKER ASSEMBLER) EXT Neutrophils 3.09 1.7 - 7.0 OTHE R (SPECIFY IN CIRCUIT BREAKER ASSEMBLER) EXT Hemoglobin 12.2 12.0 - 16.0 OTHER (SPECIFY IN CIRCUIT BREAKER ASSEMBLER) EXT White Blood Cell (WBC) Count 4.8 4.5 - 11.0 OTHER (SPEC AMELIE IN CIRCUIT BREAKER ASSEMBLER) Blood (Blood, Venous) Narrative Resulting Agency Comment [facility] Tosha E Delger PATROL MOTHER, C.N.P., D.N.P. LAB B LOOD ADD-ON OTHER (SPECIFY IN CIRCUIT BREAKER ASSEMBLER) N/A * (ABNORMAL) CRP (C-Reactive Protein) (05/13/2023 11:18 AM [facility]) EXT C-Reactive Protein Quantative 15.0(A) 5.0 - 10.0 OTHER (SPECIFY IN CIRCUIT BREAKER ASSEMBLER) Blood (Blood, Venous) Narrative Resulting Agency Comment [facility] Tosha Leung APRN, C.N.P., D.N.P. LAB B LOOD ADD-ON OTHER (SPECIFY IN CIRCUIT BREAKER ASSEMBLER) N/A * (ABNORMAL) AST (Aspartate Aminotransferase) (05/13/2023 11:18 AM [facility]) EXT AST 42(A) 12 - 35 OTHER (SPE CIFY IN CIRCUIT BREAKER ASSEMBLER) Blood (Blood, Venous) Narrative Resulting Agency Comment [facility] Tosha Leung APRN C.N.P., D.N.P. LAB B LOOD ADD-ON OTHER (SPECIFY IN CIRCUIT BREAKER ASSEMBLER) N/A * Creatinine with Estimated GFR (05/13/2023 11:18 AM [facility]IC[facility]) EXT Creatinine 0.6 0.5 - 1.5 mg/dL OTHER (SPECIFY IN CIRCUIT BREAKER ASSEMBLER) Blood (Blood, Venous) Narrative Resulting Agency Comment [facility] Tosha Leung APRN, C.N.P., D.N.P. LAB B LOOD ADD-ON OTHER (SPECIFY IN CIRCUIT BREAKER ASSEMBLER) N/A from Last 3 Months Additional Health Concerns Infection Onset Date Last Indicated Protective Environment 10/11/2022 3 Care Teams Power And Recovery Superintendent Relationship Specialty Start Date End Date Elsewhere, Pcp PCP - General Internal Medicine 09/23/22
--- OUTSIDE RECORDS SUMMARY | 2023-07-18 11:35 | XMS_ITS | Encounter Summary ---
Author Name Unknown Organization [facility] Address [address] [place] [address] Care Team Providers Care Circus Roustabout Name Role Phone Elsewhere, Pcp Primary Care Provider Unavailabl e Reason for Referral * Outpatient (Routine) - Closed Specialty Diagnoses / Procedures Referred By Contac t Referred To Contact Diagnoses Arthritis Rheumatoid (HCC) High Risk Medication Procedures DX Knee Bilateral Standing 3 Views Tosha Leung APRN, C.N.P., D.N.P. [address] [place] [phone] [facility] Referral ID Status Reason Start Date Expiration Date Visits Re quested Visits Authorized [id number] Closed 09/24/2022 09/24/2023 1 1 Reason for Visit * Outpatient (Routine) - Closed Specialty Diagnoses / Procedures Referred By Contac t Referred To Contact Diagnoses Arthritis Rheumatoid (HCC) High Risk Medication Procedures DX Knee Bilateral Standing 3 Views Tosha Leung APRN, C.N.P., D.N.P. [address] [place] [phone] [facility] Referral ID Status Reason Start Date Expiration Date Visits Re quested Visits Authorized [id number] Closed 09/24/2022 09/24/2023 1 1 Encounter Details Date Type Department Care Team (Latest Contact Info) Description 12/31/2022 10:51 AM CDT - 12/31/2022 11:59 PM CDT Hospital Encounter Department of Radiology, [facility], in [place], [place] [address] [place] [address] Tosha Leung APRN, C.N.P., D.N.P. [address] [place] [address] Arthritis Rheumatoid (HCC); High Risk Medication Discharge Disposition: Home or Self Care Social History Tobacco Use Types Packs/Day Years [...] often do you attend chur ch or jewish services? 1 to 4 times per year 09/17/2022 Do you belong to any clubs o r organizations such as latter day groups, unions, [...] and heating? Not hard at all 09/17/2022 [facility] of Occupat ional Health - Occupational Stress [...] or slept in a mcc (including now)? 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 0 07/11/2022 lisinopriL (PRINIVIL,ZESTRIL) 20 mg tablet Take 20 mg by mouth daily. 0 04/05/2020 metoprolol succinate (TOPROL-XL) 25 mg 24 hr tablet Take 25 mg by mouth daily. 0 04/05/2020 simvastatin (ZOCOR) 10 mg tablet Take 10 mg by mouth at bedtime. 0 03/31/2020 folic acid 1 mg tabletIndications:Arthr itis Rheumatoid (HCC) Take 1 tablet (1,000 mcg total) by mouth daily. 90 tablet 3 09/24/2022 05/19/2023 hydrOXYchloroQUINE (PLAQUENIL) 200 mg tabletIndications:Arthr itis Rheumatoid (HCC) Take 2 tablets (400 mg total) by mouth daily. 180 tablet 1 12/31/2022 05/19/2023 methotrexate 2.5 mg tabletIndications:Arthr itis Rheumatoid (HCC) Take 10 tablets (25 mg total) by mouth once a week. 120 tablet 1 12/31/2022 05/19/2023 sulfaSALAzine (AZULFIDINE EN-TABS) 500 mg EC tabletIndications:Arthr itis Rheumatoid (HCC) Take 2 tablets (1,000 mg total) by mouth 2 (two) times a day. 360 tablet 1 12/31/2022 05/19/2023 documented as of this encounter Plan of Treatment Not on file documented as of this encounter Procedures Procedure Name Priority Date/Time Associated Diagnosis Comments DX KNEE BILATERAL STANDING 3 VIEWS RAD - Routine (most inpatients and all outpatients) 12/31/2022 11:46 AM CDT Arthritis Rheumatoid (HCC) High Risk Medication documented in this encounter Results * DX Knee Bilateral Standing 3 Views (12/31/2022 11:46 AM CDT) Anatomical Region Laterality Modality Lower Extremity, Knee, Muscu loskeletal RST LOS, Musculoskeletal ARZ LOS, Muskuloskeletal FLA LOS Bilateral Digit al Radiography 12/31/2022 12:0 7 PM CDT Impressions 12/31/2022 12:07 PM CDT Slight degenerative arthritis of both knees. Small left superior patellar enthesophyte. Remainder unremarkable. Narrative 12/31/2022 12:07 PM CDT EXAM: ??DX KNEE BILATERAL STANDING 3 VIEWS Procedure Note Estelle Irene M.D. - 12/31/2022 EXAM: DX KNEE BILATERAL STANDING 3 VIEWS IMPRESSION: Slight degenerative arthritis of both knees. Small left superior patellarenthesophyte. Remainder unremarkable. Tosha Leung APRN, C.N.P., D.N.P. IMG D IAGNOSTIC IMAGING PROCEDURES documented in this encounter Visit Diagnoses Diagnosis Arthritis Rheumatoid (HCC) High Risk Medication documented in this encounter Additional Health Concerns Infection Onset Date Last Indicated Resolved Time Protective Environment 10/11/2022 10/11/2022 documented as of this encounter Care Teams Circus Roustabout Relationship Specialty Start Date End Date Elsewhere, Pcp PCP - General Internal Medicine 09/23/22 documented as of this encounter
--- OUTSIDE RECORDS SUMMARY | 2023-07-18 11:35 | XMS_ITS | Encounter Summary ---
Author Name Unknown Organization [facility] Address [address] [place] [address] Care Team Providers Care Counseling Specialist Name Role Phone Elsewhere, Pcp Primary Care Provider Unavailabl e Encounter Details Date Type Department Care Team (Late st Contact Info) Description 12/31/2022 12:40 PM CDT Ancillary Procedure Department of Rheumatology Social History Tobacco Use Types Packs/Day Years [...] often do you attend chur ch or yazdanism services? 1 to 4 times per year 09/17/2022 Do you belong to any clubs o r organizations such as alevism groups, unions, fraternal [...] and heating? Not hard at all 09/17/2022 [facility] of Occupat ional Health - Occupational Stress [...] or slept in a half-way (including now)? No 09/17/2022 Nutrition Answer Date [...] Sexual Orientation Straight 05/03/2020 5: 47 PM ARTISTS' MODEL documented as of this encounter Plan of Treatment Not on file documented as of this encounter Procedures Procedure Name Priority Date/Time Associated Diagnosis Comments RHEUMATOLOGY IMAGE EXAM Routine 12/31/2022 12:40 PM CDT documented in this encounter Results * Aspiration Injection-Rheumatology Image Exam (12/31/2022 12:40 PM CDT) 12/31/2022 12:4 0 PM CDT Narrative IIMS - 12/31/2022 1:34 PM CDT This order has been created and auto-finalized to support the import of images acquired without order. The clinical documentation to support these images can be found on the encounter that produced images. Provider Not In System IMG NON RAD IMAGI NG PROCEDURES [facility] NA documented in this encounter Visit Diagnoses Not on filedocumented in this encounter Additional Health Concerns Infection Onset Date Last Indicated Resolved Time Protective Environment 10/11/2022 10/11/2022 documented as of this encounter Care Teams Counseling Specialist Relationship Specialty Start Date End Date Elsewhere, Pcp PCP - General Internal Medicine 09/23/22 documented as of this encounter
--- OUTSIDE RECORDS SUMMARY | 2023-07-18 11:35 | XMS_ITS | Encounter Summary ---
Author Name Unknown Organization [facility] Address [address] [place] [address] Care Team Providers Care Paper Production Engineer Name Role Phone Elsewhere, Pcp Primary Care Provider Unavailabl e Reason for Visit * Reason Onset Date Comments Pre-visit Testing Orders 10/11/2022 Encounter Details Date Type Department Care Team (Latest Contact Info) Description 10/11/2022 Clinical Communication Division of Rheumatology in [place], [place] [address] [place] [address] Tosha Leung, ADITHYA, C.N.P., D.N.P. [address] [place] [phone] Pre-visit Testing Orders Social History Tobacco Use Types Packs/Day Years [...] How often do you attend chur or islam services? 1 to 4 times per year 09/17/2022 Do you belong to any clubs o r organizations such as orthodoxy groups, unions, fraternal or athletic groups, or [...] and heating? Not hard at all 09/17/2022 [facility] of Occupat ionfl Health - Occupational Stress Questionnaire Answer Date [...] money to buy more. Never true 09/18/19 Within the past 12 months, t he [...] or slept in a longterm (including now)? No 09/17/2022 Nutrition Answer Date [...] Sexual Orientation Straight 05/03/2020 5: 47 PM CLINICAL INFORMATICS SPEC documented as of this encounter Miscellaneous Notes * Telephone Encounter - Anne Marie Dickerson - 10/11/2022 1:12 PM CDT Caller/Authorization: Patient Reason for call: Schedule OV and Labs Follow-up requested: Mail Lab Letter Phone/Portal: Lab letter Request Type of letter (Med monitoring, one time order, pre appointment): Pre Appointment If for medication monitoring, what medication: Diagnosis: Arthritis Rheumatoid (HCC) [M06.9] High Risk Medication [Z79.899] Where does the letter need to go to: Mail to pts home address[address] [address] [place], [place] [address] [phone] What labs are needed: Creatinine with Estimated GFR [LAB66] AST (Aspartate Aminotransferase) [YSX038] CRP (C-Reactive Protein) [DMO037] Sedimentation Rate [RIN419] CBC with Differential, Blood [JTZ971] Frequency: documented in this encounter Plan of Treatment Not on file documented as of this encounter Visit Diagnoses Not on filedocumented in this encounter Additional Health Concerns Infection Onset Date Last Indicated Resolved Time Protective Environment 10/11/2022 10/11/2022 documented as of this encounter Care Teams Paper Production Engineer Relationship Specialty Start Date End Date Elsewhere, Pcp PCP - General Internal Medicine 09/23/22 documented as of this encounter
--- OUTSIDE RECORDS SUMMARY | 2023-07-18 11:35 | XMS_ITS | Encounter Summary ---
Author Name Unknown Organization [facility] Address [address] [place] [address] Care Team Providers Care Slot Operations Director Name Role Phone Elsewhere, Pcp Primary Care Provider Unavailabl e Reason for Visit * Reason Onset Date Comments Eye Exam 12/31/2022 Completed 3 Encounter Details Date Type Department Care Team (Latest Contact Info) Description 12/31/2022 Clinical Communication Division of Rheumatology in [place], [place] [address] [place] [phone] Tosha Leung, ADITHYA, C.N.P., D.N.P. [address] [place] [phone] Eye Exam (Completed 10/04/22) Social History Tobacco Use Types Packs/Day Years [...] How often do you attend chur or buddhism services? 1 to 4 times per year 09/17/2022 Do you belong to any clubs o r organizations such as shinto groups, unions, fraternal [...] and heating? Not hard at all 09/17/2022 [facility] of Occupat ionwi Health - Occupational Stress Questionnaire Answer Date [...] or slept in a detention (including now)? 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 - 12/31/2022 4:21 PM CDT Eye exam from 10/04/22 is normal/stable for patient. Follow up in 1 year. documented in this encounter Plan of Treatment Not on file documented as of this encounter Visit Diagnoses Not on filedocumented in this encounter Additional Health Concerns Infection Onset Date Last Indicated Resolved Time Protective Environment 10/11/2022 10/11/2022 documented as of this encounter Care Teams Slot Operations Director Relationship Specialty Start Date End Date Elsewhere, Pcp PCP - General Internal Medicine 09/23/22 documented as of this encounter
--- OUTSIDE RECORDS SUMMARY | 2023-07-18 11:35 | XMS_ITS | Encounter Summary ---
Author Name Unknown Organization [facility] Address [address] [place] [address] Care Team Providers Care Directional Bore Operator Name Role Phone Elsewhere, Pcp Primary Care Provider Unavailabl e Reason for Visit * Reason Onset Date Comments Lab Monitoring 09/24/2022 Collected 3 Encounter Details Date Type Department Care Team (Latest Contact Info) Description 09/24/2022 Clinical Communication Division of Rheumatology in [place], [place] [address] [place] [phone] Tosha Leung, ADITHYA, C.N.P., D.N.P. [address] [place] [phone] Lab Monitoring (Collected 09/17/22) Social History Tobacco Use Types Packs/Day Years [...] How often do you attend chur or zoroastrian services? 1 to 4 times per year 09/17/2022 Do you belong to any clubs o r organizations such as religious groups, unions, fraternal [...] and heating? Not hard at all 09/17/2022 [facility] of Occupat ionwy Health - Occupational Stress Questionnaire Answer Date [...] or slept in a m[facility] (including now)? 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 Labs reviewed: absolute neutrophil count, AST, creatinine, hemoglobin, leukocytes, platelets, CRP (C-Reactive Protein) External labs were entered into Labs Tab and sent for scanning. PLAN Patient to continue with current plan of care. documented in this encounter Plan of Treatment Not on file documented as of this encounter Procedures Procedure Name Priority Date/Time Associated Diagnosis Comments CBC WITH DIFFERENTIAL, B Routine 09/17/2022 C-REACTIVE PROTEIN (CRP), S/P Routine 09/17/2022 ASPARTATE AMINOTRANSFERASE (AST), S/P Routine 09/17/2022 CREATININE WITH EGFR, S/P Routine 09/17/2022 documented in this encounter Results * CRP (C-Reactive Protein) (09/17/2022) [facility] EXT C-Reactive Protein Quantative 9.0 5.0 - 10.0 Blood (Blood, Venous) Narrative Resulting Agency Comment [facility] Tosha Leung APRN, C.N.P., D.N.P. LAB B LOOD ADD-ON * AST (Aspartate Aminotransferase) (09/17/2022) [facility] EXT AST 29 12 - 35 Blood (Blood, Venous) Narrative Resulting Agency Comment [facility] Tosha Leung APRN, C.N.P., D.N.P. LAB B LOOD ADD-ON * Creatinine with Estimated GFR (09/17/2022) [facility] EXT Creatinine 0.8 0.5 - 1.5 mg/dL Blood (Blood, Venous) Narrative Resulting Agency Comment [facility] Tosha Leung APRN, C.N.P., D.N.P. LAB B LOOD ADD-ON * CBC with Differential, Blood (09/17/2022) EXT Platelet Count 272 140 - 440 EXT Neutrophils 3.78 1.7 - 7 EXT Hemoglobin 13.5 12 - 16 EXT White Blood Cell (WBC) Count 5.7 4.5 - 11.0 Blood (Blood, Venous) Narrative Resulting Agency Comment [facility] Tosha eLung APRN, C.N.P., D.N.P. LAB B LOOD ADD-ON documented in this encounter Visit Diagnoses Not on filedocumented in this encounter Care Teams Directional Bore Operator Relationship Specialty Start Date End Date Elsewhere, Pcp PCP - General Internal Medicine 09/23/22 documented as of this encounter
--- OUTSIDE RECORDS SUMMARY | 2023-07-18 11:35 | XMS_ITS | Encounter Summary ---
Author Name Unknown Organization [facility] Address [address] [place] [address] Care Team Providers Care Blister Rust Eradicator Name Role Phone Elsewhere, Pcp Primary Care Provider Unavailabl e Reason for Visit * Reason Onset Date Comments Lab Monitoring 05/13/2023 Collected Encounter Details Date Type Department Care Team (Latest Contact Info) Description 05/13/2023 Clinical Communication Division of Rheumatology in [place], [place] [address] [place] [phone] Tosha Leung, ADITHYA, C.N.P., D.N.P. [address] [place] [phone] Lab Monitoring (Collected 05/13/23) Social History Tobacco Use Types Packs/Day Years [...] How often do you attend chur or denominational services? 1 to 4 times [...] and heating? Not hard at all 09/17/2022 [facility] - Occupational Stress [...] or slept in a halfway (including now)? No 09/17/2022 Nutrition Answer Date [...] Sexual Orientation Straight 05/03/2020 5: 47 PM ASSOCIATE GENETICS PROFESSOR documented as of this encounter Miscellaneous Notes * Telephone Encounter - Balbir Chilel RMerlineNMerline - 05/14/2023 12:03 PM ASSOCIATE GENETICS PROFESSOR ASSESSMENT Rheumatology monitoring labs completed at an external lab on 05/13/23 were reviewed per Rheumatology division parameters. Labs reviewed: absolute neutrophil count, AST, hemoglobin, leukocytes, platelets, ESR (Sed Rate), CRP (C-Reactive Protein) Labs outside parameters: CRP (C-reactive protein) External labs were entered into Labs Tab and sent for scanning. Labs Tab of Chart Review PLAN Provider notified of lab(s) outside of parameters. CIATE GENETICS PROFESSOR documented in this encounter Plan of Treatment Not on file documented as of this encounter Procedures Procedure Name Priority Date/Time Associated Diagnosis Comments SEDIMENTATION RATE, B Routine 05/13/2023 11:18 AM ASSOCIATE GENETICS PROFESSOR CBC WITH DIFFERENTIAL, B Routine 023 11:18 AM ASSOCIATE GENETICS PROFESSOR C-REACTIVE PROTEIN (CRP), S/P Routine 05/13/2023 11:18 AM ASSOCIATE GENETICS PROFESSOR ASPARTATE AMINOTRANSFERASE (AST), S/P Routine 05/13/2023 11:18 AM ASSOCIATE GENETICS PROFESSOR CREATININE WITH EGFR, S/P Routine 05/13/2023 11:18 AM ASSOCIATE GENETICS PROFESSOR documented in this encounter Results * (ABNORMAL) CRP (C-Reactive Protein) (05/13/2023 11:18 AM ASSOCIATE GENETICS PROFESSOR) EXT C-Reactive Protein Quantative 15.0(A) 5.0 - 10.0 OTHER (SPECIFY IN CEMENT FITTINGS MAKER) Blood (Blood, Venous) Narrative Resulting Agency Comment [facility] Tosha Leung APRN, C.N.P., D.N.P. LAB B LOOD ADD-ON OTHER (SPECIFY IN CEMENT FITTINGS MAKER) N/A * (ABNORMAL) AST (Aspartate Aminotransferase) (05/13/2023 11:18 AM ASSOCIATE GENETICS PROFESSOR) EXT AST 42(A) 12 - 35 OTHER (SPE CIFY IN CEMENT FITTINGS MAKER) Blood (Blood, Venous) Narrative Resulting Agency Comment [facility] Tosha Leung APRN, C.N.P., D.N.P. LAB B LOOD ADD-ON Performing Organization Address City/[facility]/ZIP Co de Phone Number OTHER (SPECIFY IN CEMENT FITTINGS MAKER) N/A * Creatinine with Estimated GFR (05/13/2023 11:18 AM ASSOCIATE GENETICS PROFESSOR) EXT Creatinine 0.6 0.5 - 1.5 mg/dL OTHER (SPECIFY IN CEMENT FITTINGS MAKER) Blood (Blood, Venous) Narrative Resulting Agency Comment [facility] Tosha Leung APRN, C.N.P., D.N.P. LAB B LOOD ADD-ON Performing Organization Address [facility] Co de Phone Number OTHER (SPECIFY IN CEMENT FITTINGS MAKER) N/A * Sedimentation Rate (05/13/2023 11:18 AM ASSOCIATE GENETICS PROFESSOR) EXT Sedimentation Rate 7 2 - 20 OTHER (SPECIFY IN CEMENT FITTINGS MAKER) Blood (Blood, Venous) Narrative Resulting Agency Comment [facility] Tosha Leung APRN, C.N.P., D.N.P. LAB B LOOD ADD-ON Performing Organization Address [facility] de Phone Number OTHER (SPECIFY IN CEMENT FITTINGS MAKER) N/A * CBC with Differential, Blood (05/13/2023 11:18 AM ASSOCIATE GENETICS PROFESSOR) EXT Platelet Count 264 140 - 440 OTHER (SPECIFY IN CEMENT FITTINGS MAKER) EXT Neutrophils 3.09 1.7 - 7.0 OTHE R (SPECIFY IN CEMENT FITTINGS MAKER) EXT Hemoglobin 12.2 12.0 - 16.0 OTHER (SPECIFY IN CEMENT FITTINGS MAKER) EXT White Blood Cell (WBC) Count 4.8 4.5 - 11.0 OTHER (SPEC AMELIE IN CEMENT FITTINGS MAKER) Blood (Blood, Venous) Narrative Resulting Agency Comment [facility] Tosha Leung APRN, C.N.P., D.N.P. LAB B LOOD ADD-ON Performing Organization Address City/[facility] Co de Phone Number OTHER (SPECIFY IN CEMENT FITTINGS MAKER) N/A documented in this encounter Visit Diagnoses Not on filedocumented in this encounter Additional Health Concerns Infection Onset Date Last Indicated Resolved Time Protective Environment 10/11/2022 10/11/2022 documented as of this encounter Care Teams Blister Rust Eradicator Relationship Specialty Start Date End Date Elsewhere, Pcp PCP - General Internal Medicine 09/23/22 documented as of this encounter
--- OUTSIDE RECORDS SUMMARY | 2023-07-18 11:35 | XMS_ITS | Encounter Summary ---
Author Name Unknown Organization [facility] Address [address] [place] [address] Care Team Providers Care Supervisor Press Room Name Role Phone Elsewhere, Pcp Primary Care Provider Unavailabl e Reason for Visit * Reason Onset Date Comments Pre-visit Intake 09/23/2022 Encounter Details Date Type Department Care Team (Latest Contact Info) Description 09/23/2022 9:45 AM CDT Clinical Communication Virtual Review in [place], [place] [address] [place], [place] [id number] Pre-visit Intake Social History Tobacco Use Types [...] often do you attend chur ch or roman catholic services? 1 to 4 times per year 09/17/2022 Do you belong to any clubs o r organizations such as hindu groups, unions, fraternal or athletic groups, or [...] and heating? Not hard at all 09/17/2022 [facility] [place] [facility] - [...] slept in a care home (including now)? No 09/17/2022 Nutrition Answer [...] Sexual Orientation Straight 05/03/2020 5: 47 PM AGRICULTURAL EDUCATION PROFESSOR documented as of this encounter Plan of Treatment Not on file documented as of this encounter Visit Diagnoses Not on filedocumented in this encounter Care Teams Supervisor Press Room Relationship Specialty Start Date End Date Elsewhere, Pcp PCP - General Internal Medicine 09/23/22 documented as of this encounter
--- OUTSIDE RECORDS SUMMARY | 2023-07-18 11:35 | XMS_ITS | Encounter Summary ---
Author Name Unknown Organization [facility] Address [address] [place] [address] Care Team Providers Care Parking Manager Name Role Phone Elsewhere, Pcp Primary Care Provider Unavailabl e Reason for Visit * Reason Onset Date Comments Lab Monitoring 12/27/2022 Collected 12/25/22 Encounter Details Date Type Department Care Team (Latest Contact Info) Description 12/27/2022 Clinical Communication Division of Rheumatology in [place], [place] [address] [place] [phone] Tosha Leung, ADITHYA, C.N.P., D.N.P. [address] [place] [phone] Lab Monitoring (Collected 12/25/22) Social History Tobacco Use Types Packs/Day Years [...] How often do you attend chur or restoration services? 1 to 4 times per year 09/17/2022 Do you belong to any clubs o r organizations such as bahai groups, unions, fraternal [...] place to sleep or slept in a jail (including now)? No 09/17/2022 Nutrition Answer Date [...] Sexual Orientation Straight 05/03/2020 5: 47 PM CHART SNATCHER documented as of this encounter Miscellaneous Notes * Telephone Encounter - Khadijah Victor M.S.N., R.N. - 12/30/2022 8:06 AM CDT ASSESSMENT Rheumatology monitoring labs completed at an external lab on 12/25/22 were reviewed per Rheumatology division parameters. Labs reviewed: absolute neutrophil count, AST, creatinine, hemoglobin, leukocytes, platelets, ESR (Sed Rate), CRP (C-Reactive Protein) Labs outside parameters: CRP (C-reactive protein) External labs were entered into Labs Tab and sent for scanning. Labs Tab of Chart Review PLAN Provider notified of lab(s) outside of parameters. documented in this encounter Plan of Treatment Not on file documented as of this encounter Procedures Procedure Name Priority Date/Time Associated Diagnosis Comments SEDIMENTATION RATE, B Routine 12/25/2022 CBC WITH DIFFERENTIAL, B Routine 12/25/2022 C-REACTIVE PROTEIN (CRP), S/P Routine 12/25/2022 ASPARTATE AMINOTRANSFERASE (AST), S/P Routine 12/25/2022 CREATININE WITH EGFR, S/P Routine 12/25/2022 documented in this encounter Results * (ABNORMAL) CRP (C-Reactive Protein) (12/25/2022) EXT C-Reactive Protein Quantative 15.0(A) 5.0 - 10.0 [facility] Blood (Blood, Venous) Tosha Leung APRN, C.N.P., D.N.P. LAB B LOOD ADD-ON Performing Organization Address [facility] Co de Phone Number [facility] [address] [phone] * AST (Aspartate Aminotransferase) (12/25/2022) Pathologist [facility] EXT AST 23 12 - 35 [facility] Blood (Blood, Venous) Tosha Leung APRN, C.N.P., D.N.P. LAB B LOOD ADD-ON Performing Organization Address [facility] Co de Phone Number [facility] [address] [phone] * Creatinine with Estimated GFR (12/25/2022) [facility] EXT Creatinine 0.6 0.5 - 1.5 mg/dL [facility] Blood (Blood, Venous) Gadiel Madden APRN.N.P., Luis.N.P. LAB B LOOD ADD-ON Performing Organization Address City/[facility]/ZIP Co de Phone Number [facility] [address] [phone] * Sedimentation Rate (12/25/2022) [facility] EXT Sedimentation Rate 7 2 - 20 [facility] Blood (Blood, Venous) Gadiel Madden APRN.N.P., D.N.P. LAB B LOOD ADD-ON Performing Organization Address [facility]/ZIP Co de Phone Number [facility] [address] [phone] * CBC with Differential, Blood (12/25/2022) [facility] EXT Platelet Count 274 140 - 440 [facility] EXT Neutrophils 3.84 1.7 - 7 [facility] EXT Hemoglobin 12.5 12 - 15 [facility] EXT White Blood Cell (WBC) Count 5.9 4.5 - 11.0 [facility] Blood (Blood, Venous) Gadiel Madden APRN.N.P., D.N.P. LAB B LOOD ADD-ON Performing Organization Address City/[facility]/ZIP Co de Phone Number [facility] [address] [phone] documented in this encounter Visit Diagnoses Not on filedocumented in this encounter Additional Health Concerns Infection Onset Date Last Indicated Resolved Time Protective Environment 10/11/2022 10/11/2022 documented as of this encounter Care Teams Parking Manager Relationship Specialty Start Date End Date Elsewhere, Pcp PCP - General Internal Medicine 09/23/22 documented as of this encounter
--- OUTSIDE RECORDS SUMMARY | 2023-07-18 11:35 | XMS_ITS | Encounter Summary ---
Author Name Unknown Organization [facility] Address [address] [place] [address] Care Team Providers Care Cell Biologist Name Role Phone Elsewhere, Pcp Primary Care Provider Unavailabl e Reason for Referral * Outpatient (Routine) - Closed Specialty Diagnoses / Procedures Referred By Nitesh barragan Referred To Contact Rheumatology Diagnoses Arthritis Rheumatoid (HCC) High Risk Medication Tosha Leung APRN, C.N.P., D.N.P. [address] [place] [phone] [facility] Referral ID Status Reason Start Date Expiration Date Visits Re quested Visits Authorized [id number] Closed 12/31/2022 12/30/2025 1 1 Reason for Visit * Outpatient (Routine) - Closed Specialty Diagnoses / Procedures Referred By Contac laurel Referred To Contact Rheumatology Diagnoses Arthritis Rheumatoid (HCC) High Risk Medication Tosha Leung APRN, C.N.P., D.N.P. [address] [place] [phone] [facility] Referral ID Status Reason Start Date Expiration Date Visits Re quested Visits Authorized [id number] Closed 09/24/2022 09/23/2025 1 1 Encounter Details Date Type Department Care Team (Latest Contact Info) Description 12/31/2022 2:00 PM CDT Office Visit Division of Rheumatology in [place], [place] [address] [place] [phone] Tosha Leung, ADITHYA, C.N.P., D.N.P. [address] [place] [phone] Arthritis Rheumatoid (HCC); High Risk Medication Social [...] often do you attend chur ch or mosque services? 1 to 4 times per year 09/17/2022 Do you belong to any clubs o r organizations such as yarsani groups, unions, fraternal or athletic groups, or [...] and heating? Not hard at all 09/17/2022 [facility] Occupat ional Health - Occupational Stress [...] Sexual Orientation Straight 05/03/2020 5: 47 PM ACCOUNTING ANALYST documented as of this encounter Last Filed Vital Signs Vital Sign Reading Time Taken Comments Blood Pressure 154/84 12/31/2022 1:55 PM CDT Pulse 72 12/31/2022 1:55 PM CDT Temperature 36.3 ??C (97.3 ??F) 12/31/2022 1:55 PM CD T Respiratory Rate - - Oxygen Saturation - - Inhaled Oxygen Concentration - - Weight 116 kg (255 lb 10 oz) 12/31/2022 1:55 PM CDT Height 175.6 cm (5' 9.13) 12/31/2022 1:55 PM CD T Body Mass Index 37.6 12/31/2022 1:55 PM CDT documented in this encounter Progress Notes * Tosha Leung, ADITHYA, C.N.P., D.N.P. - 12/31/2022 2:00 PM CDT SUBJECTIVE CHIEF COMPLAINT / REASON FOR [...] until her next follow-up appointment for those. She returns today for follow-up. She had bilateral trochanteric bursa injections completed prior [facility]'s visit. She otherwise reports that she has been doing about the same. She reports very shortperiod of time of morning stiffness in the morning. By the time she walks around the side of the bed she feels much better. She thinks occasionally she has some swelling in her hands as she can sincesome tightness. She is not waking at night due to pain. Previously, she had mentioned some GI side effects with oral methotrexate, however today she states that occasionally she experiences this but not routinely and not enough to want to make a change. Family history: Brother with scleroderma Social history: She lives with her who farms. 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 She is [...] Constitutional: Positive for fatigue. Respiratory: Positive for shortness of breath. Musculoskeletal: Positive for pain or stiffness in the joints. Neurological: Positive for light-headedness and numbness or shooting pain in hands, arms, legs, or feet. The following systems were negative: Skin, Eyes, ENT, Cardiovascular, Gastrointestinal, Genitourinary, Hematologic, Psychiatric OBJECTIVE PHYSICAL EXAMINATION Vitals reviewed. Constitutional Appearance: [...] place, and time. Lab: Labs completed on 12/25/2022 include a stable CBC with differential, creatinine, AST. ESR is normal. CRP was elevated at 15. Imaging: X-rays of knees and hips were updated today and show some mild degenerative changes but otherwise are fairly unremarkable. ASSESSMENT / PLAN #1 Arthritis Rheumatoid (HCC) Overall, she feels as though she is relatively stable and she is not interested in a medication change at this time unless it is absolutely necessary. There is no joint tenderness or synovitis on exam today. I am hopeful that the trochanteric bursa injections will provide her some relief in the hips. Her CRP does remain elevated, however there is no obvious active disease on exam. We will plan to continue her current regimen of triple therapy. There is room to increase sulfasalazine in the future potentially. We also discussed that next step would likely also involve considering a TNF inhibitor. I will plan to see her back later in the fall, before the holidays. She will contact me sooner withany questions or concerns. #2 High Risk Medication Recommend CBC with differential, creatinine, AST every 3 months while taking methotrexate and or sulfasalazine. I have provided her with an updated lab letter to complete these locally between visits. She reports her Plaquenil monitoring eye exam was completed within the last couple of months at [facility] in [place], [place]. I will have our director medical affairs team contact them to have that sent to us. I answered the patient's questions to the [...] in this encounter Plan of Treatment Scheduled Referrals Name Type Priority Associated Diagnoses Order Schedule Rheumatology office visit (clinic) Outpatient Referral Routine Arthritis Rheumatoid (HCC) High Risk Medication Expected: 05/19/2023, Expires: 04/02/2024 documented as of this encounter Visit Diagnoses Diagnosis Arthritis Rheumatoid (HCC) High Risk Medication documented in this encounter Additional Health Concerns Infection Onset Date Last Indicated Resolved Time Protective Environment 10/11/2022 10/11/2022 documented as of this encounter Care Teams Cell Biologist Relationship Specialty Start Date End Date Elsewhere, Pcp PCP - General Internal Medicine 09/23/22 documented as of this encounter
--- OUTSIDE RECORDS SUMMARY | 2023-07-18 11:35 | XMS_ITS | Encounter Summary ---
Author Name Unknown Organization [facility] Address [address] [place] [address] Care Team Providers Care Automobile Service Station Manager Name Role Phone Elsewhere, Pcp Primary Care Provider Unavailabl e Reason for Visit * Reason Comments Med Refill Encounter Details Date Type Department Care Team (Late st Contact Info) Description 01/07/2023 Refill Division of Rheumatology in [place], [place] [address] [place] [phone] Tosha Leung, ADITHYA, C.N.P., D.N.P. [address] [place] [phone] Med Refill Social History Tobacco Use Types Packs/Day Years [...] How often do you attend chur or baptist services? 1 to 4 times per year [...] and heating? Not hard at all 09/17/2022 [facility] - Occupational Stress Questionnaire Answer Date [...] or slept in a intermediate (including now)? No 09/17/2022 Nutrition Answer Date [...] Sexual Orientation Straight 05/03/2020 5: 47 PM MANGLE CATCHER documented as of this encounter Miscellaneous Notes * Telephone Encounter - Balbir Chilel, R.N. - 01/08/2023 4:57 PM CDT Filled for one year total supply and sent to same pharmacy 09/24/22 documented in this encounter Plan of Treatment Not on file documented as of this encounter Visit Diagnoses Diagnosis Arthritis Rheumatoid (HCC) documented in this encounter Additional Health Concerns Infection Onset Date Last Indicated Resolved Time Protective Environment 10/11/2022 10/11/2022 documented as of this encounter Care Teams Automobile Service Station Manager Relationship Specialty Start Date End Date Elsewhere, Pcp PCP - General Internal Medicine 09/23/22 documented as of this encounter
--- OUTSIDE RECORDS SUMMARY | 2023-07-18 11:35 | XMS_ITS | Encounter Summary ---
Author Name Unknown Organization [facility] Address [address] [place] [id number] Care Team Providers Care Chief Sales Officer Name Role Phone Elsewhere, Pcp Primary Care Provider Unavailabl e Reason for Visit * Outpatient (Routine) - Closed Specialty Diagnoses / Procedures Referred By Contac t Referred To Contact Diagnoses Arthritis Rheumatoid (HCC) High Risk Medication Procedures RHU US-Guided Aspiration/Injection - Large Joint Tosha Leung APRN, C.N.P., D.N.P. [address] [place] [phone] [facility] Referral ID Status Reason Start Date Expiration Date Visits Re quested Visits Authorized [id number] Closed 09/24/2022 09/24/2023 1 1 Encounter Details Date Type Department Care Team (Latest Contact Info) Description 12/31/2022 1:00 PM CDT Procedure visit Division of Rheumatology in [place], [place] [address] [place] [phone] Tosha Leung APRN, C.N.P., D.N.P. [address] [place] [phone] Luis Eduardo Guzman M.D. [address] [place] [phone] Arthritis Rheumatoid (HCC); High Risk Medication Social [...] How often do you attend chur or anabaptist services? 1 to 4 times per year 09/17/2022 Do you belong to any clubs o r organizations such as yazidism groups, unions, fraternal or athletic groups, or [...] and heating? Not hard at all 09/17/2022 [facility] - Occupational [...] or slept in a retirement (including now)? No 09/17/2022 Nutrition Answer Date [...] Sexual Orientation Straight 05/03/2020 5: 47 PM [employer] documented as of this encounter Progress Notes * Khadijah Victor M.S.N., R.N. - 12/31/2022 1:00 PM CDT SUBJECTIVE REASON FOR VISIT Patient verified they are here today for joint injection of left hip and right hip. (Bursas) HISTORY OF PRESENT ILLNESS Anticoagulation therapy: No. Recent INR: NA Diabetes diagnosis: No Allergies to medications or supplies utilized during procedure: No Previous reaction to topical anesthetic: No OBJECTIVE ASSESSMENT Fall prevention interventions utilized: Walk With Me Pain Score Pre-procedure: 10/30 Pain Score Post-procedure: 07/02 Please see Education History report within medical record for completed patient education. documented in this encounter Procedure Notes * Luis Eduardo Guzman M.D. - 12/31/2022 1:00 PM CDTAssociated Order(s): RHU US- Guided Aspiration/Injection - Large Joint: R greater troch bursa; RHU US- Guided Aspiration/Injection - Large Joint: L greater troch bursa Pre-Procedure Diagnose(s): Arthritis Rheumatoid (HCC); High Risk Medication Post-Procedure Diagnose(s): Arthritis Rheumatoid (HCC); High Risk Medication Hip site - Right greater trochanteric bursa: injection only Performed by: Luis Eduardo Guzman M.D. Authorized by: Tosha Leung APRN, C.N.P., D.N.P. PROCEDURE DETAILS Indications: bursitis Procedure Location hip Hip site - Right greater trochanteric bursa Site prep: patient was prepped and draped in usual sterile fashion Patient position: side-lying Procedural approach: lateral Procedure performed: injection only Needle gauge: 22 G, length: 2.5 in Ultrasound image guidance used to localize target, identify at risk structures, and dynamically used to direct therapy to the target. Image(s) acquired and saved. Probe: convex low/mid-frequency Needle approach: proximal to distal Ultrasound visualization: in-plane Procedural Medication The following medications were administered at the target site(s) Local anesthetic: 2 mL lidocaine 10 mg/mL (1 %) Corticosteroid: 80 mg methylPREDNISolone acetate 40 mg/mL CONSENT Consent obtained: written (Risks, benefits and alternatives were discussed and a written Informed Consent was obtained. Please see Informed Consent form for further details.) UNIVERSAL PROTOCOL All relevant documentation and testing were reviewed and available. All required blood products, implants, devices and or special equipment were made available as applicable. Pre-procedure verification was conducted and the correct site was marked if required. A fire risk assessment was done as applicable. The procedural time-out to verify correct patient, correct side/site, and procedure was conducted prior to performing the procedure and confirmed in a procedural pause. PRE-PROCEDURE DETAILS Procedure purpose: therapeutic Indications: bursitis Appropriate hand hygiene, gown, cap, mask, protective eyewear, sterile gloves, skin preparation, sterile drape, and strict aseptic technique were utilized as applicable for the procedure. Site preparation: chlorhexidine/alcohol SEDATION / ANESTHESIA Anesthesia method: topical application and local infiltration Topical application type: aerosol cold spray Local infiltrate type: lidocaine POST-PROCEDURE DETAILS Procedure completed successfully: yes Complications: no apparent complications Post-procedure instructions: avoid strenuous activity for 2 days, avoid submersion of procedure site for 48 hours and post-procedure activity instructions provided Discharge instructions: pain management instructions and dressing care Hip site - Left greater trochanteric bursa: injection only Performed by: Luis Eduardo Guzman M.D. Authorized by: Tosha Leung APRN, C.N.P., D.N.P. PROCEDURE DETAILS Indications: bursitis Procedure Location hip Hip site - Left greater trochanteric bursa Site prep: patient was prepped and draped in usual sterile fashion Patient position: side-lying Procedural approach: lateral Procedure performed: injection only Needle gauge: 22 G, length: 2.5 in Ultrasound image guidance used to localize target, identify at risk structures, and dynamically used to direct therapy to the target. Image(s) acquired and saved. Probe: convex low/mid-frequency Needle approach: proximal to distal Ultrasound visualization: in-plane Procedural Medication The following medications were administered at the target site(s) Local anesthetic: 2 mL lidocaine 10 mg/mL (1 %) Corticosteroid: 80 mg methylPREDNISolone acetate 40 mg/mL CONSENT Consent obtained: written (Risks, benefits and alternatives were discussed and a written Informed Consent was obtained. Please see Informed Consent form for further details.) UNIVERSAL PROTOCOL All relevant documentation and testing were reviewed and available. All required blood products, implants, devices and or special equipment were made available as applicable. Pre-procedure verification was conducted and the correct site was marked if required. A fire risk assessment was done as applicable. The procedural time-out to verify correct patient, correct side/site, and procedure was conducted prior to performing the procedure and confirmed in a procedural pause. PRE-PROCEDURE DETAILS Procedure purpose: therapeutic Indications: bursitis Appropriate hand hygiene, gown, cap, mask, protective eyewear, sterile gloves, skin preparation, sterile drape, and strict aseptic technique were utilized as applicable for the procedure. Site preparation: chlorhexidine/alcohol SEDATION / ANESTHESIA Anesthesia method: topical application and local infiltration Topical application type: aerosol cold spray Local infiltrate type: lidocaine POST-PROCEDURE DETAILS Procedure completed successfully: yes Complications: no apparent complications Post-procedure instructions: avoid strenuous activity for 2 days, avoid submersion of procedure site for 48 hours and post-procedure activity instructions provided Discharge instructions: pain management instructions and dressing care documented in this encounter Plan of Treatment Not on file documented as of this encounter Procedures Procedure Name Priority Date/Time Associated Diagnosis Comments NV ARTHCS ASP/INJ MJR JT W US Routine 12/31/2022 1:00 PM CDT Arthritis Rheumatoid (HCC) High Risk Medication NV ARTHCS ASP/INJ MJR JT W US Routine 12/31/2022 1:00 PM CDT Arthritis Rheumatoid (HCC) High Risk Medication documented in this encounter Results * NV ARTHCS ASP/INJ MJR JT W US (12/31/2022 1:00 PM CDT) Narrative Luis Eduardo Guzman M.D. - 12/31/2022 1:00 PM CDT Luis Eduardo Guzman M.D. ? 12/31/2022 ??1:36 PM Hip site - Left greater trochanteric bursa: injection only Performed by: Luis Eduardo Guzman M.D. Authorized by: Tosha Leung APRN, C.N.P., D.N.P. ?? PROCEDURE DETAILS Indications: bursitis Procedure Location hip Hip site - Left greater trochanteric bursa Site prep: patient was prepped and draped in usual sterile fashion ?? Patient position: side-lying Procedural approach: lateral Procedure performed: injection only Needle gauge: 22 G, length: 2.5 in Ultrasound image guidance used to localize target, identify at risk structures, and dynamically used to direct therapy to the target. Image(s) acquired and saved. Probe: convex low/mid-frequency Needle approach: proximal to distal Ultrasound visualization: in-plane Procedural Medication The following medications were administered at the target site(s) Local anesthetic: 2 mL lidocaine 10 mg/mL (1 %) Corticosteroid: 80 mg methylPREDNISolone acetate 40 mg/mL CONSENT Consent obtained: written (Risks, benefits and alternatives were discussed and a written Informed Consent was obtained. Please see Informed Consent form for further details.) UNIVERSAL PROTOCOL All relevant documentation and testing were reviewed and available. All required blood products, implants, devices and or special equipment were made available as applicable. Pre-procedure verification was conducted and the correct site was marked if required. A fire risk assessment was done as applicable. The procedural time-out to verify correct patient, correct side/site, and procedure was conducted prior to performing the procedure and confirmed in a procedural pause. PRE-PROCEDURE DETAILS Procedure purpose: therapeutic Indications: bursitis Appropriate hand hygiene, gown, cap, mask, protective eyewear, sterile gloves, skin preparation, sterile drape, and strict aseptic technique were utilized as applicable for the procedure. Site preparation: chlorhexidine/alcohol SEDATION / ANESTHESIA Anesthesia method: topical application and local infiltration Topical application type: aerosol cold spray Local infiltrate type: lidocaine POST-PROCEDURE DETAILS Procedure completed successfully: yes Complications: no apparent complications ?? Post-procedure instructions: avoid strenuous activity for 2 days, avoid submersion of procedure site for 48 hours and post-procedure activity instructions provided Discharge instructions: pain management instructions and dressing care Tosha Leung APRN, C.N.P., D.N.P. PROCE DURE/MINOR SURGICAL ORDERABLES * NV ARTHCS ASP/INJ MJR JT W US (12/31/2022 1:00 PM CDT) Narrative Luis Eduardo Guzman M.D. - 12/31/2022 1:00 PM CDT Luis Eduardo Guzman M.D. ? 12/31/2022 ??1:36 PM Hip site - Right greater trochanteric bursa: injection only Performed by: Luis Eduardo Gumzan M.D. Authorized by: Tosha Leung APRN, C.N.P., D.N.P. ?? PROCEDURE DETAILS Indications: bursitis Procedure Location hip Hip site - Right greater trochanteric bursa Site prep: patient was prepped and draped in usual sterile fashion ?? Patient position: side-lying Procedural approach: lateral Procedure performed: injection only Needle gauge: 22 G, length: 2.5 in Ultrasound image guidance used to localize target, identify at risk structures, and dynamically used to direct therapy to the target. Image(s) acquired and saved. Probe: convex low/mid-frequency Needle approach: proximal to distal Ultrasound visualization: in-plane Procedural Medication The following medications were administered at the target site(s) Local anesthetic: 2 mL lidocaine 10 mg/mL (1 %) Corticosteroid: 80 mg methylPREDNISolone acetate 40 mg/mL CONSENT Consent obtained: written (Risks, benefits and alternatives were discussed and a written Informed Consent was obtained. Please see Informed Consent form for further details.) UNIVERSAL PROTOCOL All relevant documentation and testing were reviewed and available. All required blood products, implants, devices and or special equipment were made available as applicable. Pre-procedure verification was conducted and the correct site was marked if required. A fire risk assessment was done as applicable. The procedural time-out to verify correct patient, correct side/site, and procedure was conducted prior to performing the procedure and confirmed in a procedural pause. PRE-PROCEDURE DETAILS Procedure purpose: therapeutic Indications: bursitis Appropriate hand hygiene, gown, cap, mask, protective eyewear, sterile gloves, skin preparation, sterile drape, and strict aseptic technique were utilized as applicable for the procedure. Site preparation: chlorhexidine/alcohol SEDATION / ANESTHESIA Anesthesia method: topical application and local infiltration Topical application type: aerosol cold spray Local infiltrate type: lidocaine POST-PROCEDURE DETAILS Procedure completed successfully: yes Complications: no apparent complications ?? Post-procedure instructions: avoid strenuous activity for 2 days, avoid submersion of procedure site for 48 hours and post-procedure activity instructions provided Discharge instructions: pain management instructions and dressing care Gadiel Madden APRN.N.Grazyna, D.N.P. PROCE DURE/MINOR SURGICAL ORDERABLES documented in this encounter Visit Diagnoses Diagnosis Arthritis Rheumatoid (HCC) High Risk Medication documented in this encounter Administered Medications Inactive Administered Medications - up to 3 most recent administrations Medication Order MAR Action Action Date Dose Rate Site lidocaine 10 mg/mL (1 %) injection 2 mL (XYLOCAINE) 2 mL, injection, One-Time Injection, Starting on Fri12/31/22 at 1300, For 1 dose Given 12/31/2022 1:00 PM CDT 2 mL lidocaine 10 mg/mL (1 %) injection 2 mL (XYLOCAINE) 2 mL, injection, One-Time Injection, Starting on Fri12/31/22 at 1300, For 1 dose Given 12/31/2022 1:00 PM CDT 2 mL methylPREDNISolone acetate injection 80 mg (DEPO-Medrol) 80 mg, intra-articular, One-Time Injection, Starting on Fri12/31/22 at 1300, For 1 dose Given 12/31/2022 1:00 PM CDT 80 mg methylPREDNISolone acetate injection 80 mg (DEPO-Medrol) 80 mg, intra-articular, One-Time Injection, Starting on Fri12/31/22 at 1300, For 1 dose Given 12/31/2022 1:00 PM CDT 80 mg documented in this encounter Additional Health Concerns Infection Onset Date Last Indicated Resolved Time Protective Environment 10/11/2022 10/11/2022 documented as of this encounter Care Teams Chief Sales Officer Relationship Specialty Start Date End Date Elsewhere, Pcp PCP - General Internal Medicine 09/23/22 documented as of this encounter
--- OUTSIDE RECORDS SUMMARY | 2023-07-18 11:35 | XMS_ITS | Encounter Summary ---
Author Name Unknown Organization [facility] Address [address] [place] [address] Care Team Providers Care Career Guidance Technician Name Role Phone Elsewhere, Pcp Primary Care Provider Unavailabl e Reason for Referral * Outpatient (Routine) - Closed Specialty Diagnoses / Procedures Referred By Contac t Referred To Contact Diagnoses Arthritis Rheumatoid (HCC) High Risk Medication Procedures DX Hips and Pelvis Bilateral 5+ Views DX Hips and Pelvis Bilateral 3-4 Views Tosha Leung APRN, C.N.P., D.N.P. [address] [place] [phone] [facility] Referral ID Status Reason Start Date Expiration Date Visits Re quested Visits Authorized [id number] Closed 09/24/2022 09/24/2023 1 1 Reason for Visit * Outpatient (Routine) - Closed Specialty Diagnoses / Procedures Referred By Contac t Referred To Contact Diagnoses Arthritis Rheumatoid (HCC) High Risk Medication Procedures DX Hips and Pelvis Bilateral 5+ Views DX Hips and Pelvis Bilateral 3-4 Views Tosha Leung APRN, C.N.P., D.N.P. [address] [place] [phone] [facility] Referral ID Status Reason Start Date Expiration Date Visits Re quested Visits Authorized [id number] Closed 09/24/2022 09/24/2023 1 1 Encounter Details Date Type Department Care Team (Latest Contact Info) Description 12/31/2022 10:51 AM CDT - 12/31/2022 11:59 PM CDT Hospital Encounter Department of Radiology, [facility], in [place], [place] [address] [place] [phone] Tosha Leung APRN, C.N.P., D.N.P. [address] [place] [phone] Arthritis Rheumatoid (HCC); High Risk Medication Discharge [...] often do you attend chur ch or restoration services? 1 to 4 times per year 09/17/2022 Do you belong to any clubs o r organizations such as sikhism groups, unions, fraternal or athletic groups, or [...] and heating? Not hard at all 09/17/2022 [facility] - Occupational Stress [...] or slept in a correction (including now)? 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 documented as of this encounter Medications at [...] Name Priority Date/Time Associated Diagnosis Comments DX HIPS AND PELVIS BILATERAL MINIMUM 5 VIEWS RAD - Routine (most inpatients and all outpatients) 12/31/2022 11:45 AM CDT Arthritis Rheumatoid (HCC) High Risk Medication documented in this encounter Results * DX Hips and Pelvis Bilateral 5+ Views (12/31/2022 11:45 AM CDT) Anatomical Region Laterality Modality Lower Extremity, Pelvis, Hip , Musculoskeletal RST LOS, Musculoskeletal ARZ LOS, Muskuloskeletal FLA LOS Bilateral Digit al Radiography 12/31/2022 12:0 6 PM CDT Impressions 12/31/2022 12:07 PM CDT Very mild degenerative change both hips. Spondylotic changes visualized lumbar spine. Mild-moderate arthritis of the sacroiliac joints, greater on the left. Narrative 12/31/2022 12:07 PM CDT EXAM: ??DX HIPS AND PELVIS BILATERAL 5+ VIEWS Procedure Note Estelle Irene M.D. - 12/31/2022 EXAM: DX HIPS AND PELVIS BILATERAL 5+ VIEWS IMPRESSION: Very mild degenerative change both hips. Spondylotic changes visualizedlumbar spine. Mild-moderate arthritis of the sacroiliac joints, greater on the left. Tosha Leung APRN, C.N.P., D.N.P. IMG D IAGNOSTIC IMAGING PROCEDURES documented in this encounter Visit Diagnoses Diagnosis Arthritis Rheumatoid (HCC) High Risk Medication documented in this encounter Additional Health Concerns Infection Onset Date Last Indicated Resolved Time Protective Environment 10/11/2022 10/11/2022 documented as of this encounter Care Teams Career Guidance Technician Relationship Specialty Start Date End Date Elsewhere, Pcp PCP - General Internal Medicine 09/23/22 documented as of this encounter
--- OUTSIDE RECORDS SUMMARY | 2023-07-18 11:35 | XMS_ITS | Encounter Summary ---
Author Name Unknown Organization [facility] Address [address] [place] [address] Care Team Providers Care Handle Sander Operator Name Role Phone Elsewhere, Pcp Primary Care Provider Unavailabl e Reason for Referral * Outpatient (Routine) - Closed Specialty Diagnoses / Procedures Referred By Contac t Referred To Contact Diagnoses Arthritis Rheumatoid (HCC) High Risk Medication Procedures DX Hips and Pelvis Bilateral 5+ Views DX Hips and Pelvis Bilateral 3-4 Views Tosha Leung APRN, C.N.P., D.N.P. [address] [place] [phone] [facility] Referral ID Status Reason Start Date Expiration Date Visits Re quested Visits Authorized [id number] Closed 09/24/2022 09/24/2023 1 1 * Outpatient (Routine) - Closed Specialty Diagnoses / Procedures Referred By Contac t Referred To Contact Diagnoses Arthritis Rheumatoid (HCC) High Risk Medication Procedures DX Knee Bilateral Standing 3 Views Tosha Leung APRN, C.N.P., D.N.P. [address] [place] [phone] [facility] Referral ID Status Reason Start Date Expiration Date Visits Re quested Visits Authorized [id number] Closed 09/24/2022 09/24/2023 1 1 * Outpatient (Routine) - Closed Specialty Diagnoses / Procedures Referred By Contac t Referred To Contact Diagnoses Arthritis Rheumatoid (HCC) High Risk Medication Procedures RHU US-Guided Aspiration/Injection - Large Joint Tosha Leung APRN C.N.P., D.N.P. [address] [place] [phone] [facility] Referral ID Status Reason Start Date Expiration Date Visits Re quested Visits Authorized [id number] Closed 09/24/2022 09/24/2023 1 1 * Outpatient (Routine) - Closed Specialty Diagnoses / Procedures Referred By Contac t Referred To Contact Diagnoses Arthritis Rheumatoid (HCC) High Risk Medication Procedures RHU US-Guided Aspiration/Injection - Large Joint Tosha Leung APRN C.N.P., D.N.P. [address] [place] [phone] [facility] Referral ID Status Reason Start Date Expiration Date Visits Re quested Visits Authorized [id number] Closed 09/24/2022 09/24/2023 1 1 * Outpatient (Routine) - Closed Specialty Diagnoses / Procedures Referred By Contac t Referred To Contact Rheumatology Diagnoses Arthritis Rheumatoid (HCC) High Risk Medication Tosha Leung APRN C.N.P., D.N.P. [address] [place] [phone] [facility] Referral ID Status Reason Start Date Expiration Date Visits Re quested Visits Authorized [id number] Closed 09/24/2022 09/23/2025 1 1 Reason for Visit * Outpatient (Routine) - Closed Specialty Diagnoses / Procedures Referred By Nitesh barragan Referred To Contact Rheumatology Diagnoses Arthritis Rheumatoid (HCC) High Risk Medication Tosha Leung APRN, C.NGordon, D.N.P. [address] [place] [address] [facility] Referral ID Status Reason Start Date Expiration Date Visits Re quested Visits Authorized [id number] Closed 03/08/2022 03/07/2025 1 1 Encounter Details Date Type Department Care Team (Latest Contact Info) Description 09/24/2022 9:30 AM CDT Office Visit Division of Rheumatology in [place], [place] [address] [place] [phone] Tosha Leung APRN, C.NGordon, D.N.P. [address] [place] [phone] Arthritis Rheumatoid (HCC); High Risk Medication Social [...] How often do you attend chur or tenriism services? 1 to 4 times per year 09/17/2022 Do you belong to any clubs o r organizations such as christian groups, unions, fraternal [...] and heating? Not hard at all 09/17/2022 [facility] - Occupational [...] or slept in a custodial (including now)? No 09/17/2022 Nutrition Answer Date [...] Sexual Orientation Straight 05/03/2020 5: 47 PM DATA MINING ANALYST documented as of this encounter Last Filed Vital Signs Vital Sign Reading Time Taken Comments Blood Pressure 147/85 09/24/2022 9:23 AM CDT Pulse 90 09/24/2022 9:23 AM CDT Temperature 36.4 ??C (97.5 ??F) 09/24/2022 9:23 AM CD T Respiratory Rate - - Oxygen Saturation - - Inhaled Oxygen Concentration - - Weight 114 kg (251 lb 5.2 oz) 09/24/2022 9:23 AM CDT Height 176.5 cm (5' 9.49) 09/24/2022 9:23 AM CD T Body Mass Index 36.59 09/24/2022 9:23 AM CDT documented in this encounter Progress Notes * Tosha Leung APRN, C.NGordon, D.N.P. - 09/24/2022 9:30 AM CDT SUBJECTIVE CHIEF COMPLAINT / [...] the exception of some trochanteric bursitis symptoms. She returns today for follow-up. She confirms she is taking methotrexate 25 mg by mouth weekly, hydroxychloroquine 400 mg daily, sulfasalazine 1000 mg twice daily. She does report that occasionally she misses a dose of sulfasalazine but not often. She reports she is better than prior to diagnosis, however she continues to be bothered by bilateral trochanteric bursa symptoms as well as knees. She reports her hips and knees are bothersome when going down steps. Her hips seem to bother her at night. The hip pain she describes as lateral radiating down her thigh. She has tried the exercises at home but has not felt them to be overly helpful. She has not observed any swelling in her knees. She describes her knees as a general ache. She does describe generalized joint stiffness that does not necessarily improve throughout the day. Her mornings do not seem to be significantly worse than any other time of the day. Her left 5th PIP joint was bothering her last time and that has improved. She has noted a nodule in the palm of her left hand. It has not really been painful. She believes it has been there for a few months. She describes that many foods no longer taste the same to her. She feels this has been going on forquite some time. She is uncertain if this relates to any of her medications. She describes some mild nausea which tends to occur on Tuesdays and Wednesdays. She takes her methotrexate on Friday morning so she has not necessarily connected those two. These side effects are not overly bothersome thatshe wants to do anything about this at the time. She also describes some tingling sensation in her feet as well as balance difficulties. She describes the symptoms have been present for quite some time but feels like they are worsening. She reports she was ill with upper respiratory infection for most of May and June. COVID tests were negative. Fortunately, joints did not flare up during that time. Family history: Brother with scleroderma Social history: She lives with her who farms. 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 She is [...] motion and neck supple. Comments: Tenderness to palpation over bilateral trochanteric bursa. Knees are nontender. No groin pain with internal or external rotation of bilateral hips. There is a hard, round, pea-sized nodule near the 3rd flexor tendon on the left side. Mild tenderness to palpation. No synovitis of the upperand lower extremities including hands, wrists, elbows, knees, ankles or feet bilaterally. Range of motion of the extremities are within functional limits bilaterally. Lymphadenopathy Cervical: No cervical adenopathy. Skin General: Skin is warm and dry. Neurological Mental Status: She is alert and oriented to person, place, and time. Lab: Labs were completed locally at [facility] on 09/17/2022. We have not received the results here, however she is able to access these through her patient portal on her phone and share the results. These include a normal CBC with differential, creatinine, AST. CRP was normal. ASSESSMENT / PLAN #1 Arthritis Rheumatoid (HCC) Hilda appears to be relatively stable overall. She has evidence of trochanteric bursitis on exam. She is not interested in injections today, however she is willing to schedule these to coincide with her next follow-up appointment in a few months. She can let me know if the symptoms worsen and she would like to have the injection sooner. We did discuss considering transitioning methotrexate to subcutaneous injection to see if it helps with any of the GI symptoms she is describing including nausea and change in taste. She does not feel the current symptoms are bad enough to warrant a change. We will continue to monitor. I suspect her knee pain is primarily osteoarthritis. We will update radiographs of both hips and knees prior to her next visit. She otherwise will continue methotrexate 25 mg by mouth weekly, hydroxychloroquine 400 mg daily andsulfasalazine 1000 mg twice daily. I will plan to see her back in a few months for reassessment. She can contact me sooner with any questions or concerns. #2 High Risk Medication Recommend CBC with differential, creatinine, AST every 3 months while taking methotrexate and or sulfasalazine. We will recheck these when she returns for follow-up in a few months. She has completed Plaquenil baseline eye exam. She will be due to begin annual eye exams in 2026. I answered the patient's questions to the [...] Arthritis Rheumatoid (HCC) High Risk Medication Expected: 12/24/2022 (Approximate), Expires: 12/25/2023 documented as of this encounter Results * [place] ARTHCS ASP/INJ MJR JT W US (12/31/2022 [...] C.N.P., D.N.P. PROCE DURE/MINOR SURGICAL ORDERABLES * [place] ARTHCS ASP/INJ MJR JT W US (12/31/2022 [...] C.N.P., D.N.P. PROCE DURE/MINOR SURGICAL ORDERABLES * DX Knee Bilateral Standing 3 Views [...] left superior patellarenthesophyte. Remainder unremarkable. Tosha Leung APRN C.N.P., D.N.P. IMG D IAGNOSTIC IMAGING PROCEDURES * DX Hips and Pelvis Bilateral 5+ [...] Diagnosis Arthritis Rheumatoid (HCC) High Risk Medication Arthritis Rheumatoid (HCC) High Risk Medication Arthritis Rheumatoid (HCC) High Risk Medication Arthritis Rheumatoid (HCC) High Risk Medication documented in this encounter Care Teams Handle Sander Operator Relationship Specialty Start Date End Date Elsewhere, Pcp PCP - General Internal Medicine 09/23/22 documented as of this encounter
--- OUTSIDE RECORDS SUMMARY | 2023-07-18 11:35 | XMS_ITS | Encounter Summary ---
Author Name Unknown Organization [facility] Address [address] [place] [address] Care Team Providers Care Director Client Services Name Role Phone Elsewhere, Pcp Primary Care Provider Unavailabl e Reason for Visit * Reason Onset Date Comments Lab Letter 02/28/2023 Encounter Details Date Type Department Care Team (Late st Contact Info) Description 02/28/2023 Clinical Communication Division of Rheumatology in [place], [place] [address] [place] [phone] Tosha Leung, ADITHYA, C.N.P., D.N.P. [address] [place] [phone] Lab Letter Social History Tobacco Use Types Packs/Day Years [...] How often do you attend chur or advent services? 1 to 4 times per year 09/17/2022 Do you belong to any clubs o r organizations such as congregational groups, unions, fraternal or athletic groups, or [...] and heating? Not hard at all 09/17/2022 [facility] - [...] or slept in a snf (including now)? No 09/17/2022 Nutrition Answer Date [...] Sexual Orientation Straight 05/03/2020 5: 47 PM BANK TELLER documented as of this encounter Miscellaneous Notes * Telephone Encounter - Sara Khoury Nagi - 02/28/2023 8:41 AM CDT Pt is needing pre-appt lab letter sent. Provider: Tosha Date of appt: 05/19 Patient would like letter mailed to her home address: [address] [place] [phone] ICD-10/DX: Rheumatoid Arthritis (M06.9) Labs needed: AST CBC CRP Creatinine Sedimentation rate documented in this encounter Plan of Treatment Not on file documented as of this encounter Visit Diagnoses Not on filedocumented in this encounter Additional Health Concerns Infection Onset Date Last Indicated Resolved Time Protective Environment 10/11/2022 10/11/2022 documented as of this encounter Care Teams Director Client Services Relationship Specialty Start Date End Date Elsewhere, Pcp PCP - General Internal Medicine 09/23/22 documented as of this encounter
--- OUTSIDE RECORDS SUMMARY | 2023-07-18 11:36 | XMS_ITS | Encounter Summary ---
Author Name Unknown Organization [facility] Address [address] [place] [address] Care Team Providers Care Adz Worker Name Role Phone Unavailable Primary Care Provider Unavailabl e Reason for Visit * Reason Comments Med Refill Encounter Details Date Type Department Care Team ([facility] st Contact Info) Description 09/07/2022 Refill Division of Rheumatology in [place], [place] [address] [place] [phone] Tosha Leung, ADITHYA, C.N.P., D.N.P. [address] [place] [phone] Med Refill Social History Tobacco Use Types Packs/Day Years Used Date Smoking Tobacco: Former Cigarettes 0.8 0 1971 - 07/03/1999 Smokeless Tobacco: Never Alcohol Use Standard Drinks/Week Comments Yes 2 (1 standard drink = 0.6 oz pur e alcohol) 2 drinks per week. Humiliation, Afraid, Rape, and Kick questionnair e Answer Date Recorded Within the last year, have y ou been afraid of your partner or ex-partner? No 03/03/2022 Within the last year, have y ou been humiliated or emotionally abused in other ways by your partner or ex-partner? No Within the last year, have y ou been kicked, hit, slapped, or otherwise physically hurt by your partner or ex-partner? No 03/03/2022 Within the last year, have y ou been raped or forced to have any kind of sexual activity by your partner or ex-partner? No 03/03/2022 Social Connection and Isolat ion Panel [NHANES] Answer Date Recorded In a typical week, how many times do you talk on the phone with family, friends, or neighbors? More than three times a week 03/03/2022 How often do you get togethe r with friends or relatives? More than three times a week 03/03/2022 How often do you attend chur ch or adventism services? 1 to 4 times per year 03/03/2022 Do you belong to any clubs o r organizations such as denominational groups, unions, fraternal or athletic groups, or school groups? No 03/03/2022 How often do you attend meet ings of the clubs or organizations you belong to? Never 03/03/2022 Are you , , di vorced, , never , or living with a partner? 03/03/2022 AUDIT-C Answer Date Recorded Q1: How often do you have a drink containing alc ohol? Monthly or less 03/03/2022 Q2: How many drinks containi ng alcohol do you have on a typical day when you are drinking? 1 or 2 03/03/2022 Q3: How often do you have si x or more drinks on one occasion? Never 03/03/2022 Overall Financial Resource Strain (CARDIA) Answe r Date Recorded How hard is it for you to pa y for the very basics like food, housing, medical care, and heating? Not hard at all 03/03/2022 [facility] - Occupational Stress Questionnaire Answer Date Recorded Do you feel stress - tense, restless, nervous, or anxious, or unable to sleep at night because your mind is troubled all the time - these days? Only a little 03/03/2022 Exercise Vital Sign Answer Date Recorde d On average, how many days pe r week do you engage in moderate to strenuous exercise (like a brisk walk)? 0 days 03/03/2022 On average, how many minutes do you engage in exercise at this level? 0 min 03/03/2022 Hunger Vital Sign Answer Date Recorded Within the past 12 months, y ou worried that your food would run out before you got the money to buy more. Never true 03/03/20 22 Within the past 12 months, t he food you bought just didn't last and you didn't have money to get more. Never true 03/03/2022 PRAPARE - Transportation Answer Date Re corded In the past 12 months, has l ack of transportation kept you from medical appointments or from getting medications? No 02/21 In the past 12 months, has l ack of transportation kept you from meetings, work, or from getting things needed for daily living? No 03/03/2022 Housing Stability Vital Sign Answer Víctor e Recorded In the last 12 months, was t here a time when you were not able to pay the mortgage or rent on time? No 03/03/2022 In the last 12 months, how many places have you lived? 1 03/03/2022 In the last 12 months, was t here a time when you did not have a steady place to sleep or slept in a long-term (including now)? No 03/03/2022 Nutrition Answer Date Recorded Nutrition: EVOO Fat Source No 03/03 On average, how many serving s of fruits and vegetables do you eat per day (serving size is equal to 1 cup or approximately the size of a tennis ball)? 2-3 03/03/2022 Dental Answer Date Recorded Dental: Regular Dentist Yes 08/11/19 21 Employment Answer Date Recorded Employment status Retired 03/03/2022 Education Answer Date Recorded What is the highest level of school you have completed or the highest degree you have received? 12th grade 04/07/2020 Sex and Gender Information Value Date Recorded Sex Assigned at Female 03/31/2021 8:17 PM CDT Gender Identity Female 03/31/2021 8:17 PM CDT Sexual Orientation Straight 05/03/2020 5: 47 PM TRANSFER COORDINATOR documented as of this encounter Miscellaneous Notes * Telephone Encounter - Sukh Johnson, R.N. - 09/09/2022 10:48 AM CDT Prescription renewal request for hydroxychloroquine (Plaquenil) received from pharmacy. HISTORY OF PRESENT ILLNESS Last Rheum visit: 03/08/2022 with Tosha Leung APRN, BETY Future office visit: 09/24/2022 Last monitoring labs/eye exam: Baseline completed (unknown date) next due in 2026: within protocol parameters. Prescription request matches current plan of care. Prescription request matches a current prescription in the Medication List. Exclusion criteria: None ASSESSMENT/PLAN Prescription request renewed per nursing protocol. documented in this encounter Plan of Treatment Not on file documented as of this encounter Visit Diagnoses Diagnosis Arthritis Rheumatoid (HCC)- Primary documented in this encounter
--- OUTSIDE RECORDS SUMMARY | 2023-07-18 11:36 | XMS_ITS | Encounter Summary ---
Author Name Unknown Organization [facility] Address [address] [place] [address] Care Team Providers Care Geoscience Specialist Name Role Phone Unavailable Primary Care Provider Unavailabl e Reason for Visit * Reason Onset Date Comments Labs Only 08/06/2022 Encounter Details Date Type Department Care Team (Late st Contact Info) Description 08/06/2022 Clinical Communication Division of Rheumatology in [place], [place] [address] [place] [phone] Tosha Leung, ADITHYA, C.N.P., D.N.P. [address] [place] [phone] Labs Only Social History Tobacco Use Types Packs/Day Years [...] 03/03/2022 How often do you attend chur or orthodox services? 1 to 4 times per year 03/03/2022 Do you belong to any clubs o r organizations such as lutheran groups, unions, fraternal or athletic groups, or [...] and heating? Not hard at all 03/03/2022 [facility] - [...] a [place] [facility] [place] (including now)? No 03/03/2022 Nutrition Answer Date [...] Sexual Orientation Straight 05/03/2020 5: 47 PM CONTACT WORKER documented as of this encounter Miscellaneous Notes * Telephone Encounter - Anne Marie Chambers - 08/06/2022 9:03 AM CST Pt is needing pre-appt lab letter sent. Provider: Tosha Date of appt:09/24/22 Post lab letter in her portal for her to print ICD-10/DX: M06.9 Labs needed: AST CBC CRP Creatinine Sed rate ACT WORKER documented in this encounter Plan of Treatment Not on file documented as of this encounter Visit Diagnoses Not on filedocumented in this encounter
--- OUTSIDE RECORDS SUMMARY | 2023-07-18 11:36 | XMS_ITS | Encounter Summary ---
Author Name Unknown Organization [facility] Address [address] [place] [address] Care Team Providers Care Cotton Candy Maker Name Role Phone Unavailable Primary Care Provider Unavailabl e Reason for Visit * Reason Comments Med Refill Encounter Details Date Type Department Care Team ([facility] st Contact Info) Description 09/13/2022 Refill Division of Rheumatology in [place], [place] [address] [place] [phone] Tosha Leung, ADITHYA, C.N.P., D.N.P. [address] [place] [phone] Med Refill Social History Tobacco Use Types [...] often do you attend chur ch or temple services? 1 to 4 times per year 03/03/2022 Do you belong to any clubs o r organizations such as sabianism groups, unions, fraternal or athletic groups, or [...] Sexual Orientation Straight 05/03/2020 5: 47 PM MOCK UP ASSEMBLER documented as of this encounter Miscellaneous Notes * Telephone Encounter - Tala Downs, RMerlineNMerline - 09/13/2022 8:44 AM CDT Prescription renewal request for sulfasalazine (Azulfidine) received from pharmacy. HISTORY OF PRESENT ILLNESS Last Rheum visit: 03/08/2022 with Tosha Leung APRN, BETY Future office visit: 09/24/22 Last monitoring labs/eye exam: 03/08/2022 eye exam (due in spring): within protocol parameters. Prescription request matches current plan of care. Prescription request matches a current prescription in the Medication List. Exclusion criteria: None ASSESSMENT/PLAN Prescription request renewed per nursing protocol. documented in this encounter Plan of Treatment Not on file documented as of this encounter Visit Diagnoses Diagnosis Arthritis Rheumatoid (HCC) documented in this encounter
--- OUTSIDE RECORDS SUMMARY | 2023-07-18 11:36 | XMS_ITS | Encounter Summary ---
Author Name Unknown Organization [facility] Address [address] [place] [address] Care Team Providers Care Web Developer Programmer Name Role Phone Unavailable Primary Care Provider Unavailabl e Reason for Visit * Reason Comments Med Refill Encounter Details Date Type Department Care Team ([facility] st Contact Info) Description 08/08/2022 Refill Division of Rheumatology in [place], [place] [address] [place] [phone] Tosha Leung, ADITHYA, C.N.P., D.N.P. [address] [place] [phone] Med Refill Social History Tobacco Use Types [...] often do you attend chur ch or yazidi services? 1 to 4 times per year 03/03/2022 Do you belong to any clubs o r organizations such as baptism groups, unions, fraternal or athletic groups, or [...] and heating? Not hard at all 03/03/2022 [facility] ional Health - Occupational Stress [...] slept in a senior care (including now)? No 03/03/2022 Nutrition Answer Date [...] Sexual Orientation Straight 05/03/2020 5: 47 PM FUDGE CANDY MAKER documented as of this encounter Miscellaneous Notes * Telephone Encounter - Toyin Mendez R.N. - 08/12/2022 8:00 AM FUDGE CANDY MAKER Prescription renewal request for methotrexate received from pharmacy. HISTORY OF PRESENT ILLNESS Last Rheum visit: 03/08/2022 with Tosha Leung APRN, CNP Future office visit: 09/24/2022 Last monitoring labs/eye exam: 06/18/2022: within protocol parameters. Prescription request matches current plan of care. Prescription request matches a current prescription in the Medication List. Exclusion criteria: None ASSESSMENT/PLAN Prescription request renewed per nursing protocol. E CANDY MAKER documented in this encounter Plan of Treatment Not on file documented as of this encounter Visit Diagnoses Diagnosis Arthritis Rheumatoid (HCC) documented in this encounter
== END 2023-07-17 08:44 | disposition home or self-care (01) ==
LOC: NFLDREF 07-18 11:20
PROVIDERS: PCP Internal Medicine; Referring Provider Internal Medicine; Visit Provider Internal Medicine
DX: E78.5 Hyperlipidemia, unspecified (principal); I10 Essential (primary) hypertension
CPT/HCPCS: 80048; 80061

== ENCOUNTER 2023-11-04 07:57 | Outpatient (CLI) | payer MEDICARE, OTHER, SELFPAY ==
--- OUTSIDE RECORDS SUMMARY | 2023-11-04 07:59 | XMS_ITS | Clinical Summary ---
Author Name Unknown Organization [facility] Address [address] [place] [address] Care Team Providers Care Exhibit Preparator Name Role Phone Elsewhere, Pcp Primary Care Provider Unavailabl e Source Comments Patient records contain information from all sites at [facility]. For routine questions regarding patient records, call [phone] during business hours, M-F 8:00 AM - 5:00 PM Central Time. Record requests for emergency care only can be directed to [phone] at any time.[facility] Allergies No known active allergies Medications Medication Sig Dispensed Refills Start Date End Date Status lisinopriL (PRINIVIL,ZESTRIL) 20 mg tablet Take 20 mg by mouth daily. 04/05/2020 Active metoprolol succinate (TOPROL-XL) 25 mg 24 hr tablet Take 25 mg by mouth daily. 04/05/2020 Active simvastatin (ZOCOR) 10 mg tablet Take 10 mg by mouth at bedtime. 03/31/2020 Active codeine-guaiFENesin (ROBITUSSIN-AC) 10-100 mg/5 mL liquid Take 5 mL by mouth every 4 (four) hours as needed. 07/11/2022 Active zwiycdbjnpao-errb-GJ (CENTRUM COMPLETE) 18-400 mg-mcg per tablet Take 1 tablet by mouth daily. Active cholecalciferol (Vitamin D3) 50 mcg (2,000 Unit) tablet Take 50 mcg by mouth daily. Active folic acid 1 mg tabletIndications:Ar thritis [...] Encounters Date Type Department Care Team Description 09/11/2023 Clinical Communication Division of Rheumatology in [place], [place] [address] [place] [address] Tosha Leung, ADITHYA, C.N.P., D.N.P. Pre-visit Testing Orders; lab letter from Last 3 Months Immunizations Name Administration [...] Finger Father William Finger Maternal Grandmother Susan Melendez Mother Amanda Finger Sister Vanessa Mann Social History Tobacco Use Types Packs/Day Years Used Date Smoking Tobacco: Former Cigarettes 0.8 28 0 1971 - 07/03/1999 Passive Smoke Exposure: [...] How often do you attend chur or roman catholic services? 1 to 4 times per year 09/17/2022 Do you belong to any clubs o r organizations such as rastafarian groups, unions, fraternal or athletic groups, or [...] heating? Not hard at all 09/17/2022 [facility] [place] of Occupat ional Health - Occupational Stress [...] place to sleep or slept in a prison (including now)? No 09/17/2022 Nutrition Answer Date [...] Sexual Orientation Straight 05/03/2020 5: 47 PM SPOOLER Last Filed Vital Signs Vital Sign Reading Time Taken Comments Blood Pressure 135/85 05/19/2023 9:22 AM SPOOLER Pulse 94 05/19/2023 9:22 AM SPOOLER Temperature 36.7 ??C (98.1 ??F) 05/19/2023 9:22 AM CS T Respiratory Rate - - Oxygen Saturation - - Inhaled Oxygen Concentration - - Weight 117 kg (257 lb 15 oz) 05/19/2023 9:22 AM SPOOLER Height 177.8 cm (5' 10) 05/19/2023 9:22 AM SPOOLER Body Mass Index 37.01 05/19/2023 9:22 AM SPOOLER Plan of Treatment Upcoming Encounters Date Type Department Care Team (Late st Contact Info) Description 12/01/2023 11:15 AM CDT Office Visit Division of Rheumatology in [place], [place] [address] [place] [phone] Tosha Leung APRN, C.N.P., D.N.P. [address] [place] [phone] Health Maintenance Due Date Last Done Comments Bone Density Scan (Osteoporo sis Screen) 1955 CT Colonography 1955 Cologuard 1955 Colonoscopy 1955 Colorectal Cancer Surveillance 1955 Fasting Glucose for Diabetes Screening 1955 Mammogram 1955 Potassium Level 1955 Sodium Level 1955 Pneumococcal vaccine (65+ years) (3 of 3 - PPSV23 or PCV20) 01/20/2023 01/24/2022, 01/20/2018 COVID-19 Vaccine (6 - 2022-2 4 season) 2023 03/21/2023, 03/14/2022, 02/13/2021, Additional history exists Depression Screening (Annual PHQ-2) 2023 Fall Risk Screen (Annual) 2023 Creatinine Level (Kidney Function Test) 05/13/2024 05/13/2023, 12/25/2022, 09/17/2022, Additional history exists DTaP,Tdap,and Td Vaccines (3 - Td or Tdap) 10/01/2032 10/01/2022, 04/23/2012 Zoster Vaccines Completed 12/08/2018, 01/20/2018 Hydroxychloroquine (PLAQUENI L) Baseline Exam Completed 10/04/2022 Influenza Vaccine Completed 03/21/2023, , 03/28/2021, Additional history exists HPV Vaccines Aged Out No longer eligi ble based on patient's age to complete this topic Medical Devices Implanted Type Area Filter Changing Technician Device Identifier Shelf Expiration Date Model / Serial / Lot Imaging Marker Imaging Marker Right: Breast Procedures Procedure Name Priority Date/Time Associated Diagnosis Comments CREATININE WITH EGFR, S/P Routine 05/13/2023 11:18 AM SPOOLER from Last 3 Months or Most Recently Relevant to Health Maintenance Results * Creatinine with Estimated GFR (05/13/2023 11:18 AM SPOOLER) EXT Creatinine 0.6 0.5 - 1.5 mg/dL OTHER (SPECIFY IN STONE FINISHER) Blood (Blood, Venous) Narrative Resulting Agency Comment [facility] Tosha Leung APRN C.N.P., D.N.P. LAB B LOOD ADD-ON OTHER (SPECIFY IN STONE FINISHER) N/A from Last 3 Months or Most Recently Relevant to Health Maintenance Additional Health Concerns Infection Onset Date Last Indicated Protective Environment 10/11/2022 3 Care Teams Exhibit Preparator Relationship Specialty Start Date End Date Elsewhere, Pcp PCP - General Internal Medicine 09/23/22
--- OUTSIDE RECORDS SUMMARY | 2023-11-04 07:59 | XMS_ITS | Encounter Summary ---
Author Name Unknown Organization [facility] Address [address] [place] [address] Care Team Providers Care Lean Sensei Name Role Phone Elsewhere, Pcp Primary Care Provider Unavailabl e Reason for Visit * Reason Onset Date Comments Pre-visit Testing Orders 09/11/2023 lab letter 09/11/2023 Encounter Details Date Type Department Care Team (Latest Contact Info) Description 09/11/2023 Clinical Communication Division of Rheumatology in [place], [place] [address] [place] [phone] Tosha Leung, ADITHYA, C.N.P., D.N.P. [address] [place] [phone] Pre-visit Testing Orders; lab letter Social History Tobacco Use Types Packs/Day Years [...] How often do you attend chur or adventism services? 1 to 4 times per year 09/17/2022 Do you belong to any clubs o r organizations such as mu-ism groups, unions, fraternal or athletic groups, or [...] all 09/17/2022 [facility] of Occupat ionpa Health - Occupational Stress Questionnaire Answer Date [...] Sexual Orientation Straight 05/03/2020 5: 47 PM ACCOUNT DEVELOPMENT SPECIALIST documented as of this encounter Miscellaneous Notes * Telephone Encounter - Ruthminerva Beti Mccoy - 09/11/2023 10:49 AM CDT Pre-appointment lab letter has been faxed to [facility]: Lab and a copy was sent to your patient portal. The lab letter can be found by clicking health record, clinical notes & documents, then letters. Please have theses labs drawn within one week of your appointment with Tosha. Please reach out if you have difficulty accessing the letter. * Telephone Encounter - Elizabeth Alonso - 09/11/2023 10:26 AM CDT Caller/Authorization: PT Provider: Tosha Leung APRN, CNP Type of letter (Med monitoring, one time order, pre appointment):Pre- Appointment 11/30 If for medication monitoring, what medication: Diagnosis (ICD-10): Arthritis Rheumatoid (HCC) M06.9 Where does the letter need to go to: [facility] & [address] [address] P; [phone] F: [phone] What labs are needed: CBC with Differential Creatinine with Estimated GFR AST (Aspartate Aminotransferase) ALT (Alanine Aminotransferase) CRP (C-Reactive Protein) Sedimentation Frequency: Follow-up requested: Yes Phone/Portal:Phone call documented in this encounter Plan of Treatment Upcoming Encounters Date Type Department Care Team (Late st Contact Info) Description 12/01/2023 11:15 AM CDT Office Visit Division of Rheumatology in [place], [place] [address] [place] [address] Tosha Leung APRN, C.N.P., D.N.P. [address] [place] [phone] documented as of this encounter Visit Diagnoses Not on filedocumented in this encounter Additional Health Concerns Infection Onset Date Last Indicated Resolved Time Protective Environment 10/11/2022 10/11/2022 documented as of this encounter Care Teams Lean Sensei Relationship Specialty Start Date End Date Elsewhere, Pcp PCP - General Internal Medicine 09/23/22 documented as of this encounter
--- OUTSIDE RECORDS SUMMARY | 2023-11-04 07:59 | XMS_ITS ---
Author Name Unknown Organization [facility] Address [address] [place] [address] Care Team Providers Care Feedlot Manager Name Role Phone Unavailable Unavailable Unavailable Surgery Details Not on file Complications Check Surgery Details section. Procedure Estimated Blood Loss Check Surgery Details section. Procedure Findings Check Surgery Details section. Procedure Specimens Taken Check Surgery Details section.
--- OUTSIDE RECORDS SUMMARY | 2023-11-04 07:59 | XMS_ITS | Clinical Summary ---
Author Name Unknown Organization [facility] Address [place], [place] [address] Care Team Providers Care Seismic Prospecting Supervisor Name Role Phone Sandra Slade MD Primary Care Provider [phone] Allergies No known active allergies Medications Medication [...] 175.3 cm (5' 9) 06/17/2007 8:21 AM PUPPY TRAINER Body Mass Index 29.68 06/17/2007 8:21 AM PUPPY TRAINER Plan of Treatment Health Maintenance Due Date Last Done Comments Tdap 1967 Depression screening for age 12+ [...] 65+ (1 of 1 - PCV) 2021 COVID-19 vaccine series ( - 2022- season) 2023 Influenza for age 65+ 02/22/2024 04/12/2008, 007 Procedures Procedure Name Priority Date/Time Associated Diagnosis Comments XR MAMMO BILAT SCREEN FFDM (IA) Routine 06/29/2007 1:49 PM PUPPY TRAINER Screening Mammogram Other LIPID PANEL Routine 06/17/2007 9:41 AM PUPPY TRAINER Screening Lipid Disorders from Last 3 Months or Most Recently Relevant to Health Maintenance Results * XR MAMMO BILAT SCREEN FFDM (06/29/2007 1:49 PM PUPPY TRAINER) MAMMOGRAM ACR 3 Probably Benign Finding: Short interval F/U suggested Anatomical Region Laterality Modality BREASTS, Breast Left, Breast Right Bilateral Mammography 06/29/2007 1:49 PM PUPPY TRAINER Narrative 06/30/2007 1:16 PM PUPPY TRAINER SCREENING MAMMOGRAM CLINICAL HISTORY: ??Screening study. Comparison: ??None. FINDINGS: ??The breasts are heterogeneously density which may obscure small masses. ??Scattered benign-appearing calcifications noted bilaterally. ??No suspicious cluster seen. ??No areas of architectural distortion or dominant mass is identified. CONCLUSION: ??ACR 3 Probably Benign Findings: Short interval F/U suggested RECOMMENDATION: ??Bilateral mammogram in six months. NOTE: ??SHORT-TERM INTERVAL FOLLOW RECOMMENDED FOR DIFFUSE BILATERAL CALCIFICATIONS MOST LIKELY BENIGN HOWEVER, IN ORDER TO CONFIRM STABILITY, A SIX-MONTH FOLLOW-UP IS RECOMMENDED SINCE THIS IS A BASELINE EXAMINATION. Procedure Note Mulugeta Moore DO - 06/30/2007 SCREENING MAMMOGRAM CLINICAL HISTORY: Screening study. Comparison: None. FINDINGS: The breasts are heterogeneously density which may obscure smallmasses. Scattered benign-appearing calcifications noted bilaterally. Nosuspicious cluster seen. No areas of architectural distortion or dominantmass is identified. CONCLUSION: ACR 3 Probably Benign Findings: Short interval F/Usuggested RECOMMENDATION: Bilateral mammogram in six months. NOTE: SHORT-TERM INTERVAL FOLLOW RECOMMENDED FOR DIFFUSE BILATERALCALCIFICATIONS MOST LIKELY BENIGN HOWEVER, IN ORDER TO CONFIRM STABILITY,A SIX-MONTH FOLLOW-UP IS RECOMMENDED SINCE THIS IS A BASELINEEXAMINATION. Thanh Oconnell MD MAMMO * (ABNORMAL) LIPID PANEL (06/17/2007 9:41 AM PUPPY TRAINER) CHOLESTEROL,TOTAL 231(H) 110 - 199 mg/dL [facility] TRIGLYCERIDES 113 <150 mg/dL [facility] HDL CHOLESTEROL 54 >40 mg/dL [facility] CHOL/HDL RATIO 4.28 <4.51 [facility] LDL CHOLESTEROL 154(H) <131 mg/dL [facility] PATIENT STATUS Fasting [facility] Blood specimen (specimen) BLOOD SPECIMEN / Unknown 06/17/2007 9:41 AM PUPPY TRAINER 06/17/2007 9:36 AM PUPPY TRAINER Thanh Oconnell MD CHEMISTRY [facility] [address] [place] [address] from Last 3 Months or Most Recently Relevant to Health Maintenance Care Teams Seismic Prospecting Supervisor Relationship Specialty Start Date End Date Sandra Slade MD [address] [place] [address] PCP - General Internal Medicine 11/07/20
--- OUTSIDE RECORDS SUMMARY | 2023-11-04 07:59 | XMS_ITS | Referral Summary ---
Author Name Unknown Organization [facility] Address [address] [place] [address] Care Team Providers Care Executive Secretary Name Role Phone Elsewhere, Pcp Primary Care Provider Unavailabl e Source Comments Patient records contain information from all sites at [facility]. For routine questions regarding patient records, call [phone] during business hours, M-F 8:00 AM - 5:00 PM Central Time. Record requests for emergency care only can be directed to [phone] at any time.[facility] Encounters Date Type Department Care Team Description 09/11/2023 Clinical Communication Division of Rheumatology in [place], [place] [address] [place] [address] Tosha Leung, ADITHYA, C.N.P., D.N.P. Pre-visit Testing Orders; lab letter from Last 3 Months Allergies No known [...] 4 (four) hours as needed. 07/11/2022 Active cmneqjuexbmg-tmzb-IP (CENTRUM COMPLETE) 18-400 mg-mcg per tablet Take [...] often do you attend chur ch or uatsdin services? 1 to 4 times per year 09/17/2022 Do you belong to any clubs o r organizations such as druze groups, unions, fraternal [...] and heating? Not hard at all 09/17/2022 [facility] [place] of Occupat ional Health - Occupational Stress [...] [place] (including [facility])? No 09/17/2022 Nutrition Answer Date [...] Sexual Orientation Straight 05/03/2020 5: 47 PM BRIDGE DESIGN ENGINEER Last Filed Vital Signs Vital Sign Reading Time Taken Comments Blood Pressure 135/85 05/19/2023 9:22 AM BRIDGE DESIGN ENGINEER Pulse 94 05/19/2023 9:22 AM BRIDGE DESIGN ENGINEER Temperature 36.7 ??C (98.1 ??F) 05/19/2023 9:22 AM CS T Respiratory Rate - - Oxygen Saturation - - Inhaled Oxygen Concentration - - Weight 117 kg (257 lb 15 oz) 05/19/2023 9:22 AM BRIDGE DESIGN ENGINEER Height 177.8 cm (5' 10) 05/19/2023 9:22 AM BRIDGE DESIGN ENGINEER Body Mass Index 37.01 05/19/2023 9:22 AM BRIDGE DESIGN ENGINEER Plan of Treatment Upcoming Encounters Date Type Department Care Team (Late st Contact Info) Description 12/01/2023 11:15 AM CDT Office Visit Division of Rheumatology in [place], [place] [address] [place] [address] Tosha Leung APRN, C.N.Grazyna, D.N.P. [address] [place] [address] Medical Devices Implanted Type Area Sap Bw Bi Developer Device Identifier Shelf Expiration Date Model / Serial / Lot Imaging Marker Imaging Marker Right: Breast Procedures Procedure Name Priority Date/Time Associated Diagnosis Comments CREATININE WITH EGFR, S/P Routine 05/13/2023 11:18 AM BRIDGE DESIGN ENGINEER from Last 3 Months or Most Recently Relevant to Health Maintenance Results * Creatinine with Estimated GFR (05/13/2023 11:18 AM BRIDGE DESIGN ENGINEER) EXT Creatinine 0.6 0.5 - 1.5 mg/dL OTHER (SPECIFY IN SUPERVISOR COSTUMING) Blood (Blood, Venous) Narrative Resulting Agency Comment [facility] Shelli Madden APRNN.Del., D.N.P. LAB B LOOD ADD-ON OTHER (SPECIFY IN SUPERVISOR COSTUMING) N/A from Last 3 Months or Most Recently Relevant to Health Maintenance Additional Health Concerns Infection Onset Date Last Indicated Protective Environment 10/11/2022 3 Care Teams Executive Secretary Relationship Specialty Start Date End Date Elsewhere, Pcp PCP - General Internal Medicine 09/23/22
--- NOTE | 2023-11-04 08:15 | MM_ITS ---
Patient: SIMA MARCH Facility:?[facility] Patient ID:?[id number] Site Patient ID:?[id number] Site :?[id number] Study:?XRay-Breast Bilateral 3D W/CAD-11/04/2023 8:24:18 AM Ordering Physician:Sandra Chris Final Report: BILATERAL SCREENING MAMMOGRAM WITH COMPUTER-AIDED DETECTION AND TOMOSYNTHESIS TECHNIQUE: CC and MLO views were obtained. These mammographic images have been obtained using full-field digital technique. These mammographic images were interpreted with the benefit of computer-aided detection. Breast tomosynthesis was used in this interpretation. COMPARISON FILM: 10/28/22, 10/23/22, 10/14/22. FINDINGS: The breasts are heterogeneously dense, which may obscure small masses. IMPRESSION: There is no radiographic evidence for malignancy. ASSESSMENT: BI-RADS Category 2: Benign RECOMMENDATION: Routine screening mammogram in 1 year. A lay language report of this examination will be provided to the patient. GENE GUZMAN M.D. Diagnostic Radiologist [email or web address]/[email or web address] D& Transcribed: 1:[address]/Dictated by: Gene Guzman MD @ 11/04/2023 9:02:00 AM Signed by:?Gene Guzman MD @11/04/2023 1:32:10 PM (Electronic Signature)
== END 2023-11-04 07:58 | disposition home or self-care (01) ==
LOC: MAMMO 07:57
PROVIDERS: PCP Internal Medicine; Visit Provider Internal Medicine
DX: Z12.31 Encounter for screening mammogram for malignant neoplasm of breast (principal); R92.2 Inconclusive mammogram
CPT/HCPCS: 77063; 77067

== ENCOUNTER 2023-11-26 11:22 | Outpatient (CLI) | payer MEDICARE, OTHER, SELFPAY ==
--- OUTSIDE RECORDS SUMMARY | 2023-11-26 11:27 | XMS_ITS | Clinical Summary ---
Author Organization [facility] Address [address] [place] [address] Care Team Providers Care Director Of Bands Name Role Phone Elsewhere, Pcp Primary Care Provider Unavailabl e Source Comments Patient records contain information from all sites at [facility]. For routine questions regarding patient records, call [phone] during business hours, M-F 8:00 AM - 5:00 PM Central Time. Record requests for emergency care only can be directed to [phone] at any time.[facility] Allergies No known active allergies Medications [...] 4 (four) hours as needed. 07/11/2022 Active dfqclfgekbda-ylbd-UD (CENTRUM COMPLETE) 18-400 mg-mcg per tablet Take [...] 09/11/2023 Clinical Communication Division of Rheumatology in [place], [place] [address] [place] [address] Tosha Leung, ADITHYA, C.N.P., D.N.P. Pre-visit Testing [...] any clubs o r organizations such as oriental orthodox groups, unions, [...] and heating? Not hard at all 09/17/2022 [facility] of Occupat ional Health - Occupational Stress [...] Sexual Orientation Straight 05/03/2020 5: 47 PM PLASTIC PARTS FABRICATOR Last Filed Vital Signs Vital Sign Reading Time Taken Comments Blood Pressure 135/85 05/19/2023 9:22 AM PLASTIC PARTS FABRICATOR Pulse 94 05/19/2023 9:22 AM PLASTIC PARTS FABRICATOR Temperature 36.7 ??C (98.1 ??F) 05/19/2023 9:22 AM CS T Respiratory Rate - - Oxygen Saturation - - Inhaled Oxygen Concentration - - Weight 117 kg (257 lb 15 oz) 05/19/2023 9:22 AM PLASTIC PARTS FABRICATOR Height 177.8 cm (5' 10) 05/19/2023 9:22 AM PLASTIC PARTS FABRICATOR Body Mass Index 37.01 05/19/2023 9:22 AM PLASTIC PARTS FABRICATOR Plan of Treatment Upcoming Encounters Date Type Department Care Team (Latest Contact Info) Description 11/26/2023 2:15 PM CDT Clinical Communication Virtual Review in [place], [place] [address] [place] [address] 12/01/2023 11:15 AM CDT Office Visit Division of Rheumatology in [place], [place] [address] [place] [phone] Tosha Leung APRN, C.N.P., D.N.P. [address] [place] [phone] Health Maintenance Due Date Last Done Comments [...] this topic Medical Devices Implanted Type Area Endless Track Vehicle Supervisor Device Identifier Shelf Expiration Date Model / Serial / Lot Imaging Marker Imaging Marker Right: Breast Procedures Procedure Name Priority Date/Time Associated Diagnosis Comments CREATININE WITH EGFR, S/P Routine 05/13/2023 11:18 AM PLASTIC PARTS FABRICATOR from Last 3 Months or Most Recently Relevant to Health Maintenance Results * Creatinine with Estimated GFR (05/13/2023 11:18 AM PLASTIC PARTS FABRICATOR) EXT Creatinine 0.6 0.5 - 1.5 mg/dL OTHER (SPECIFY IN BLOCK BREAKER OPERATOR) Blood (Blood, Venous) Narrative Resulting Agency Comment [facility] Tosha Leung APRN C.N.PMerline, D.N.P. LAB B LOOD ADD-ON OTHER (SPECIFY IN BLOCK BREAKER OPERATOR) N/A from Last 3 Months or Most Recently Relevant to Health Maintenance Additional Health Concerns Infection Onset Date Last Indicated Protective Environment 10/11/2022 3 Care Teams Director Of Bands Relationship Specialty Start Date End Date Elsewhere, Pcp PCP - General Internal Medicine 09/23/22
--- OUTSIDE RECORDS SUMMARY | 2023-11-26 11:27 | XMS_ITS | Encounter Summary ---
Author Organization [facility] Address [address] [place] [address] Care Team Providers Care Mutual Fund Manager Name Role Phone Elsewhere, Pcp Primary Care Provider Unavailabl e Reason for Visit * Reason Onset Date Comments Pre-visit Testing Orders 09/11/2023 lab letter 09/11/2023 Encounter Details Date Type Department Care Team (Latest Contact Info) Description 09/11/2023 Clinical Communication Division of Rheumatology in [place], [place] [address] [place] [phone] Tosha Leung, ADITHYA, C.N.P., D.N.P. [address] [place] [phone] Pre-visit Testing Orders; lab letter Social History [...] How often do you attend chur or church services? 1 to 4 times per year 09/17/2022 Do you belong to any clubs o r organizations such as amish groups, unions, fraternal or athletic groups, or [...] and heating? Not hard at all 09/17/2022 [facility] of Occupat ionoh Health - Occupational Stress Questionnaire Answer Date [...] Sexual Orientation Straight 05/03/2020 5: 47 PM FINISH SPECIALIST documented as of this encounter Miscellaneous Notes * Telephone Encounter - Ruthminerva Beti Mccoy - 09/11/2023 10:49 AM CDT Pre-appointment lab letter has been faxed to [facility]: Lab and a [...] does the letter need to go to: [facility] & [address] [address] P; [phone] F: [phone] What labs are needed: CBC with Differential Creatinine with Estimated GFR AST (Aspartate Aminotransferase) ALT (Alanine Aminotransferase) CRP (C-Reactive Protein) Sedimentation Frequency: Follow-up requested: Yes Phone/Portal:Phone call documented in this encounter Plan of Treatment Upcoming Encounters Date Type Department Care Team (Latest Contact Info) Description 11/26/2023 2:15 PM CDT Clinical Communication Virtual Review in [place], [place] [address] [place] [address] 12/01/2023 11:15 AM CDT Office Visit Division of Rheumatology in [address] [phone] Tosha Leung, ADITHYA, C.N.P., D.N.P. [address] [place] [phone] documented as of this encounter Visit Diagnoses Not on filedocumented in this encounter Additional Health Concerns Infection Onset Date Last Indicated Resolved Time Protective Environment 10/11/2022 10/11/2022 documented as of this encounter Care Teams Mutual Fund Manager Relationship Specialty Start Date End Date Elsewhere, Pcp PCP - General Internal Medicine 09/23/22 documented as of this encounter
--- OUTSIDE RECORDS SUMMARY | 2023-11-26 11:27 | XMS_ITS | Referral Summary ---
Author Organization [facility] Address [address] [place] [address] Care Team Providers Care Fashion Intern Name Role Phone Elsewhere, Pcp Primary Care Provider Unavailabl e Source Comments Patient records contain information from all sites at [facility]. For routine questions regarding patient records, call [phone] during business hours, M-F 8:00 AM - 5:00 PM Central Time. Record requests for emergency care only can be directed to [phone] at any time.[facility] Encounters Date Type Department Care Team Description 09/11/2023 Clinical Communication Division of Rheumatology in [place], [place] [address] [place] [address] Tosha Leung, ADITHYA, C.N.P., D.N.P. Pre-visit Testing [...] 4 (four) hours as needed. 07/11/2022 Active zdasfwdbjdnv-wgwp-QS (CENTRUM COMPLETE) 18-400 mg-mcg per tablet Take [...] often do you attend chur ch or alevism services? 1 to 4 times per year 09/17/2022 Do you belong to any clubs o r organizations such as orthodox groups, unions, fraternal [...] and heating? Not hard at all 09/17/2022 [facility] of Occupat ional Health - Occupational Stress [...] or slept in a fdc (including now)? No 09/17/2022 Nutrition Answer Date [...] Sexual Orientation Straight 05/03/2020 5: 47 PM VAN OWNER OPERATOR Last Filed Vital Signs Vital Sign Reading Time Taken Comments Blood Pressure 135/85 05/19/2023 9:22 AM VAN OWNER OPERATOR Pulse 94 05/19/2023 9:22 AM VAN OWNER OPERATOR Temperature 36.7 ??C (98.1 ??F) 05/19/2023 9:22 AM CS T Respiratory Rate - - Oxygen Saturation - - Inhaled Oxygen Concentration - - Weight 117 kg (257 lb 15 oz) 05/19/2023 9:22 AM VAN OWNER OPERATOR Height 177.8 cm (5' 10) 05/19/2023 9:22 AM VAN OWNER OPERATOR Body Mass Index 37.01 05/19/2023 9:22 AM VAN OWNER OPERATOR Plan of Treatment Upcoming Encounters Date Type Department Care Team (Latest Contact Info) Description 11/26/2023 2:15 PM CDT Clinical Communication Virtual Review in [place], [place] [address] [place] [address] 12/01/2023 11:15 AM CDT Office Visit Division of Rheumatology in [place], [place] [address] [place] [phone] Tosha Leung APRN, C.N.P., D.N.P. [address] [place] [phone] Medical Devices Implanted Type Area Embossing Press Operator Apprentice Device Identifier Shelf Expiration Date Model / Serial / Lot Imaging Marker Imaging Marker Right: Breast Procedures Procedure Name Priority Date/Time Associated Diagnosis Comments CREATININE WITH EGFR, S/P Routine 05/13/2023 11:18 AM VAN OWNER OPERATOR from Last 3 Months or Most Recently Relevant to Health Maintenance Results * Creatinine with Estimated GFR (05/13/2023 11:18 AM VAN OWNER OPERATOR) EXT Creatinine 0.6 0.5 - 1.5 mg/dL OTHER (SPECIFY IN FURNITURE PACKER) Blood (Blood, Venous) Narrative Resulting Agency Comment [facility] Tosha Leung APRN, C.N.P., D.N.P. LAB B LOOD ADD-ON OTHER (SPECIFY IN FURNITURE PACKER) N/A from Last 3 Months or Most Recently Relevant to Health Maintenance Additional Health Concerns Infection Onset Date Last Indicated Protective Environment 10/11/2022 3 Care Teams Fashion Intern Relationship Specialty Start Date End Date Elsewhere, Pcp PCP - General Internal Medicine 09/23/22
--- OUTSIDE RECORDS SUMMARY | 2023-11-26 11:27 | XMS_ITS ---
Author Organization [facility] Address [address] [place] [address] Care Team Providers Care Legal Manager Name Role Phone Unavailable Unavailable Unavailable Surgery Details Not on file Complications Check Surgery Details section. Procedure Estimated Blood Loss Check Surgery Details section. Procedure Findings Check Surgery Details section. Procedure Specimens Taken Check Surgery Details section.
--- OUTSIDE RECORDS SUMMARY | 2023-11-26 11:27 | XMS_ITS | Clinical Summary ---
Author Organization [facility] Address [place], [place] [address] Care Team Providers Care Knockout Man Name Role Phone Sandra Slade MD Primary Care Provider [phone] Allergies No known active allergies Medications Medication Sig Dispensed Refills Start Date End Date Status FLONASE 50 MCG/ACTUATION NASAL SPRAYIndications:Chr onic rhinitis inhale 1 spray in each nostril by intranasal route once daily 1 06/17/2007 Active IMITREX 50 MG TABIndications:Heada kip(784.0) [...] 175.3 cm (5' 9) 06/17/2007 8:21 AM BARNWORKER GROOM Body Mass Index 29.68 06/17/2007 8:21 AM BARNWORKER GROOM Plan of Treatment Health Maintenance Due Date [...] PCV) 2021 COVID-19 vaccine series ( - 2022-24 season) 2023 Influenza for age 65+ 02/22/2024 04/12/2008, 007 Procedures Procedure Name Priority Date/Time Associated Diagnosis Comments XR MAMMO BILAT SCREEN FFDM (IA) Routine 06/29/2007 1:49 PM BARNWORKER GROOM Screening Mammogram Other LIPID PANEL Routine 06/17/2007 9:41 AM BARNWORKER GROOM Screening Lipid Disorders from Last 3 Months or Most Recently Relevant to Health Maintenance Results * XR MAMMO BILAT SCREEN FFDM (06/29/2007 1:49 PM BARNWORKER GROOM) MAMMOGRAM ACR 3 Probably Benign Finding: Short interval F/U suggested Anatomical Region Laterality Modality BREASTS, Breast Left, Breast Right Bilateral Mammography 06/29/2007 1:49 PM BARNWORKER GROOM Narrative 06/30/2007 1:16 PM BARNWORKER GROOM SCREENING MAMMOGRAM CLINICAL HISTORY: ??Screening study. Comparison: [...] IS A BASELINE EXAMINATION. Procedure Note Mulugeta Moore, - 06/30/2007 SCREENING MAMMOGRAM CLINICAL HISTORY: Screening [...] * (ABNORMAL) LIPID PANEL (06/17/2007 9:41 AM BARNWORKER GROOM) CHOLESTEROL,TOTAL 231(H) 110 - 199 mg/dL [facility] TRIGLYCERIDES 113 <150 mg/dL [facility] HDL CHOLESTEROL 54 >40 mg/dL [facility] CHOL/HDL RATIO 4.28 <4.51 [facility] LDL CHOLESTEROL 154(H) <131 mg/dL [facility] PATIENT STATUS Fasting [facility] Blood specimen (specimen) BLOOD SPECIMEN / Unknown 06/17/2007 9:41 AM BARNWORKER GROOM 06/17/2007 9:36 AM BARNWORKER GROOM Thanh Oconnell MD CHEMISTRY [facility] [address] [place] [address] from Last 3 Months or Most Recently Relevant to Health Maintenance Care Teams Knockout Man Relationship Specialty Start Date End Date Sandra Slade MD [address] [place] [address] PCP - General Internal Medicine 11/07/20
[2023-11-26 13:26] LABS: Basophils Absolute Auto 0.04 K/uL (0.00-0.30); Basophils Percent Auto 0.7 % (0.0-3.0); Eosinophils Percent Auto 1.7 % (0.0-7.0); Hematocrit 40.5 % (33.0-51.0); Hemoglobin* 12.9 gm/dL (12.0-16.0); Immature Granulocytes Abs Auto 0.01 K/uL (0.00-0.30); Immature Granulocytes Pct Auto 0.2 %; Lymphocytes Absolute Auto 1.47 K/uL (0.90-2.90); Mean Corpuscular HGB Conc 32 gm/dL (32-36); Mean Corpuscular Hemoglobin 28 pg (26-34); Mean Corpuscular Volume 88 fL (80-100); Monocytes Percent Auto 8.2 % (0.0-11.0); Neutrophils Absolute Auto 3.78 K/uL (1.7-7.0); Neutrophils Percent Auto 64.2 % (42.0-72.0); Platelet Count* 256 K/uL (140-440); RDW Coefficient of Variation % 15.2 % (11.5-15.5); Red Blood Count 4.58 m/uL (4.00-5.20); White Blood Count* 5.88 K/uL (4.50-11.00)
[2023-11-26 13:29] LABS: Creatinine* 0.7 mg/dL (0.5-1.5); Estimated Glomerular Filt Rate 95 ml/min
[2023-11-26 13:30] LABS: Alanine Aminotransferase* 23 U/L (4-35); Aspartate Amino Transferase* 25 U/L (12-35)
[2023-11-26 13:33] LABS: C Reactive Protein* 1.4 mg/dL (0.5-1.0)
[2023-11-26 13:44] LABS: Slide Review Reflex No
[2023-11-26 14:13] LABS: Erythrocyte SedimentationRate* 8 mm/hr (2-20)
== END 2023-11-26 11:23 | disposition home or self-care (01) ==
LOC: LAB 11:24
PROVIDERS: PCP Internal Medicine; Visit Provider Nurse Practitioner
DX: M06.9 Rheumatoid arthritis, unspecified (principal)
CPT/HCPCS: 36415; 82565; 84450; 84460; 85025; 85651; 86140

== ENCOUNTER 2024-05-24 13:33 | Outpatient (REF) | payer MEDICARE, OTHER, SELFPAY ==
--- OUTSIDE RECORDS SUMMARY | 2024-05-24 13:40 | XMS_ITS ---
Author Organization [facility] Address [address] [place] [address] Care Team Providers Care Bale Sewer Name Role Phone Unavailable Unavailable Unavailable Surgery Details Not on file Complications Check Surgery Details section. Procedure Estimated Blood Loss Check Surgery Details section. Procedure Findings Check Surgery Details section. Procedure Specimens Taken Check Surgery Details section.
--- OUTSIDE RECORDS SUMMARY | 2024-05-24 13:40 | XMS_ITS | Encounter Summary ---
Author Organization [facility] Address [address] [place] [address] Care Team Providers Care Manager Balance Name Role Phone Elsewhere, Pcp Primary Care Provider Unavailabl e Reason for Referral * Outpatient (Routine) - Authorized Specialty Diagnoses / Procedures Referred By Contac t Referred To Contact Diagnoses Arthritis Rheumatoid (HCC) Bursitis Trochanteric Bilateral Procedures RHU US-Guided Aspiration/Injection - Large Joint Tosha Leung APRN, C.N.P., D.N.P. [address] [place] [address] Phone: tel: fax: [facility] Referral ID Status Reason Start Date Expiration Date V isits Requested Visits Authorized [id number] Authorized 03/15/2024 03/15/2025 1 1 * Outpatient (Routine) - Authorized Specialty Diagnoses / Procedures Referred By Contac t Referred To Contact Diagnoses Arthritis Rheumatoid (HCC) Bursitis Trochanteric Bilateral Procedures RHU US-Guided Aspiration/Injection - Large Joint Tosha Leung APRN, C.N.P., D.N.P. [address] [place] [phone] Phone: tel: fax: [facility] Referral ID Status Reason Start Date Expiration Date V isits Requested Visits Authorized [id number] Authorized 03/15/2024 03/15/2025 1 1 Encounter Details Date Type Department Care Team (Late st Contact Info) Description 03/09/2024 Clinical Communication Division of Rheumatology in [place], [place] [address] [place] [address] Tosha Leung APRN, C.N.P., Luis.N.P. [address] [place] [address] Social History Tobacco Use Types Packs/Day Years Used Date Smoking Tobacco: Former Cigarettes 0.8 28 0 1971 - 07/03/1999 Passive Smoke Exposure: Never Smokeless Tobacco: Never Alcohol Use Standard Drinks/Week Comments Yes 3 (1 standard drink = 0.6 oz pur e alcohol) 2 drinks per week. [facility] [employer] Answer Date Recorded In the past 12 months has [employer], [employer], oil, or water Pluck threatened to shut off services in your home? No 11/27/2023 Humiliation, Afraid, Rape, and Kick questionnair e [...] week 09/17/2022 How often do you attend [facility] or protestant services? 1 to 4 times per year 09/17/2022 Do you belong to any clubs o r organizations such as confucianism groups, unions, fraternal or athletic groups, or [...] and heating? Not hard at all 09/17/2022 [facility] of Occupat ional Health - [...] exercise (like a brisk walk)? 0 days 11/27/2023 On average, how many minutes do you engage in exercise at this level? 0 min 11/27/2023 Hunger Vital Sign Answer Date Recorded Within the past 12 months, y ou worried that your food would run out before you got the money to buy more. Never true 11/27/19 24 Within the past 12 months, t he food you bought just didn't last and you didn't have money to get more. Never true 11/27/2023 PRAPARE - Transportation Answer Date Re corded In the past 12 months, has l ack of transportation kept you from medical appointments or from getting medications? No 11/2023 In the past 12 months, has l ack of transportation kept you from meetings, work, or from getting things needed for daily living? No 11/27/2023 Nutrition Answer Date Recorded On average, how many serving s of fruits and vegetables do you eat per day (serving size is equal to 1 cup or approximately the size of a tennis ball)? 0-2 11/27/2023 Dental Answer Date Recorded Dental: Regular Dentist Yes 08/11/19 21 Employment Answer Date Recorded Employment status Retired 11/27/2023 Housing Stability Answer Date Recorded What is your living situation today? I have a [facility] place to live 11/27/2023 Education Answer Date Recorded What is the highest level of school you have completed or the highest degree you have received? 12th grade 04/07/2020 Comments Unknown Sex and Gender Information Value Date Recorded Sex Assigned at Female 03/31/2021 8:17 PM CDT Legal Sex Female 5:00 PM SHEET ROCK HANGER Gender Identity Female 03/31/2021 8:17 PM CDT Sexual Orientation Straight 05/03/2020 5: 47 PM SHEET ROCK HANGER documented as of this encounter Miscellaneous Notes * Telephone Encounter - Ambreen Steiner - 03/09/2024 11:24 AM CDT Caller/Authorization: Provider: Tosha Leung APRN, CNP Symptoms Questions: Symptom Description/include all patient details: pt requesting bilateral hip injections. Maa- Please send lab letter to patients home. Apt is on 05/31. Creatinine, AST, cbc, crp, esr Symptom Duration: Follow-up requested: Yes Phone/Portal:Phone call documented in this encounter Plan of Treatment Upcoming Encounters Date Type Department Care Team (Late st Contact Info) Description 05/31/2024 10:30 AM SHEET ROCK HANGER Office Visit Division of Rheumatology in [place], [place] [address] [place] [phone] Tosha Leung APRN, C.N.P., D.N.P. [address] [place] [phone] 05/31/2024 1:00 PM SHEET ROCK HANGER Procedure visit Division of Rheumatology in [place], [place] [address] [place] [phone] Tosha Leung APRN, C.N.P., D.N.P. [address] [place] [address] Scheduled Orders Name Type Priority Associated Diagnoses Orde r Schedule RHU US-Guided Aspiration/Injectio n - Large Joint Procedures Routine Arthritis Rheumatoid (HCC) Bursitis Trochanteric Bilateral Expected: 05/31/2024, Expires: 06/14/2025 RHU US-Guided Aspiration/Injectio n - Large Joint Procedures Routine Arthritis Rheumatoid (HCC) Bursitis Trochanteric Bilateral Expected: 05/31/2024, Expires: 06/14/2025 documented as of this encounter Visit Diagnoses Diagnosis Arthritis Rheumatoid (HCC)- Primary Bursitis Trochanteric Bilateral documented in this encounter Additional Health Concerns Infection Onset Date Last Indicated Resolved Time Protective Environment 10/11/2022 10/11/2022 documented as of this encounter Care Teams Manager Balance Relationship Specialty Start Date End Date Elsewhere, Pcp PCP - General Internal Medicine 09/23/22 documented as of this encounter
--- OUTSIDE RECORDS SUMMARY | 2024-05-24 13:40 | XMS_ITS | Encounter Summary ---
Author Organization [facility] Address [address] [place] [address] Care Team Providers Care Certified Registered Locksmith Name Role Phone Elsewhere, Pcp Primary Care Provider Unavailabl e Reason for Visit * Reason Onset Date Comments Pre-visit Intake 05/10/2024 Encounter Details Date Type Department Care Team (Latest Contact Info) Description 05/10/2024 11:45 AM AVIAN KEEPER Clinical Communication Virtual Review in [place], [place] [address] [place] [address] Pre-visit Intake Social History Tobacco Use Types Packs/Day Years Used Date Smoking Tobacco: Former Cigarettes 0.8 28 0 1971 - 04/23/2000 Passive Smoke Exposure: Never Smokeless Tobacco: Never Alcohol Use Standard Drinks/Week Comments Yes 2 (1 standard drink = 0.6 oz pur e alcohol) 2 drinks per week. [facility] Utilities Answer Date Recorded In the past 12 months has [facility] [employer], gas, oil, or water company threatened to shut off services in your [...] often do you attend chur ch or taoism services? 1 to 4 times per year 09/17/2022 Do you belong to any clubs o r organizations such as quaker groups, unions, fraternal [...] heating? Not hard at all 09/17/2022 [facility] - Occupational Stress Questionnaire Answer [...] your living situation today? I have a [facility] place to live 11/27/2023 Education Answer Date Recorded What is the highest level of school you have completed or the highest degree you have received? 12th grade 04/07/2020 Comments Unknown Sex and Gender Information Value Date Recorded Sex Assigned at Female 03/31/2021 8:17 PM CDT Legal Sex Female 5:00 PM AVIAN KEEPER Gender Identity Female 03/31/2021 8:17 PM CDT Sexual Orientation Straight 05/03/2020 5: 47 PM AVIAN KEEPER documented as of this encounter Plan of Treatment Upcoming Encounters Date Type Department Care Team (Late st Contact Info) Description 05/31/2024 10:30 AM AVIAN KEEPER Office Visit Division of Rheumatology in [place], [place] [address] [place] [phone] Tosha Leung APRN, C.N.P., D.N.P. [address] [place] [phone] 05/31/2024 1:00 PM AVIAN KEEPER Procedure visit Division of Rheumatology in [place], [place] [address] [place] [phone] Tosha Leung APRN, C.N.P., D.N.P. [address] [place] [phone] documented as of this encounter Visit Diagnoses Not on filedocumented in this encounter Additional Health Concerns Infection Onset Date Last Indicated Resolved Time Protective Environment 10/11/2022 10/11/2022 documented as of this encounter Care Teams Certified Registered Locksmith Relationship Specialty Start Date End Date Elsewhere, Pcp PCP - General Internal Medicine 09/23/22 documented as of this encounter
--- OUTSIDE RECORDS SUMMARY | 2024-05-24 13:40 | XMS_ITS | Referral Summary ---
Author Organization [facility] Address [address] [place] [address] Care Team Providers Care Electrician Name Role Phone Elsewhere, Pcp Primary Care Provider Unavailabl e Source Comments Patient records contain information from all sites at [facility]. For routine questions regarding patient records, call [phone] during business hours, M-F 8:00 AM - 5:00 PM Central Time. Record requests for emergency care only can be directed to [phone] at any time.[facility] Encounters Date Type Department Care Team Description 05/10/2024 11:45 AM DIRECTOR OF FINANCIAL PLANNING Clinical Communication Virtual Review in [place], [place] [address] [place] [phone] Pre-visit Intake 03/09/2024 Clinical Communication Division of Rheumatology in [address] [phone] Tosha Leung, ADITHYA, C.N.P., D.N.P. from Last 3 Months Allergies Active Allergy Reactions Criticality Noted Date Comments Nickel Rash High 07/21/2023 Medications * This document contains information received from the source organization and may not represent a complete record from that organization. lisinopriL (PRINIVIL,ZESTR IL) 20 mg tablet Take 20 mg by mouth daily. 04/05/2020 Active metoprolol succinate (TOPROL-XL) 25 mg 24 hr tablet Take 25 mg by mouth daily. 04/05/2020 Active simvastatin (ZOCOR) 10 mg tablet Take 10 mg by mouth at bedtime. 03/31/2020 Active cholecalciferol (Vitamin D3) 50 mcg (2,000 Unit) tablet Take 50 mcg by mouth daily. Active folic acid 1 mg tabletIndicatio ns:Arthritis Rheumatoid (HCC) Take 1 tablet (1,000 mcg total) by mouth daily. 90 tablet 3 12/01/2023 Active hydroxychloroqu ine (PLAQUENIL) 200 mg tabletIndicatio ns:Arthritis Rheumatoid (HCC) Take 2 tablets (400 mg total) by mouth daily. 180 tablet 1 12/01/2023 Active methotrexate 2.5 mg tabletIndicatio ns:Arthritis Rheumatoid (HCC) Take 10 tablets (25 mg total) by mouth once a week. 120 tablet 1 12/01/2023 Active sulfaSALAzine (AZULFIDINE EN-TABS) 500 mg EC tabletIndicatio ns:Arthritis Rheumatoid (HCC) Take 2 tablets (1,000 mg total) by mouth 2 (two) times a day. 360 tablet 1 12/01/[address] Active aspirin [address] tablet Take 81 mg by mouth daily. 01/24/2022 Active Active Problems Problem Noted Date Diagnosed [...] alcohol) 2 drinks per week. [facility] Utilities Answer Date Recorded In the past 12 months has [facility] [employer], [employer], or water [employer] threatened to shut off services in your [...] How often do you attend chur or muslim services? 1 to 4 times per year 09/17/2022 Do you belong to any clubs o r organizations such as spiritism groups, unions, fraternal [...] and heating? Not hard at all 09/17/2022 [facility] Occupat ionmd Health - Occupational Stress Questionnaire Answer Date [...] your living situation today? I have a [facility] place to live 11/27/2023 Education Answer Date Recorded What is the highest level of school you have completed or the highest degree you have received? 12th grade 04/07/2020 Comments Unknown Sex and Gender Information Value Date Recorded Sex Assigned at Female 03/31/2021 8:17 PM CDT Legal Sex Female 5:00 PM DIRECTOR OF FINANCIAL PLANNING Gender Identity Female 03/31/2021 8:17 PM CDT Sexual Orientation Straight 05/03/2020 5: 47 PM DIRECTOR OF FINANCIAL PLANNING Last Filed Vital Signs Vital Sign Reading Time Taken Comments Blood Pressure 123/81 12/01/2023 11:13 AM CDT Pulse 83 12/01/2023 11:13 AM CDT Temperature 36.5 C (97.7 F) 12/01/2023 11:13 AM CDT Respiratory Rate - - Oxygen Saturation - - Inhaled Oxygen Concentration - - Weight 118 kg (259 lb 4.2 oz) 12/01/2023 11:13 A M CDT Height 175.7 cm (5' 9.17) 12/01/2023 11:13 AM C DT Body Mass Index 38.09 12/01/2023 11:13 AM CDT Plan of Treatment Upcoming Encounters Date Type Department Care Team (Late st Contact Info) Description 05/31/2024 10:30 AM DIRECTOR OF FINANCIAL PLANNING Office Visit Division of Rheumatology in [place], [place] [address] [place] [phone] Tosha Leung APRN, C.N.P., D.N.P. [address] [place] [phone] 05/31/2024 1:00 PM DIRECTOR OF FINANCIAL PLANNING Procedure visit Division of Rheumatology in [place], [place] [address] [place] [phone] Tosha Leung APRN, C.N.P., D.N.P. [address] [place] [phone] Medical Devices Implanted Type Area Data Administrator Device Identifier Shelf Expiration Date Model / Serial / Lot Imaging Marker Imaging Marker Right: Breast Procedures Procedure Name Priority Date/Time Associated Diagnosis Comments CREATININE WITH EGFR, S/P Routine 11/26/2023 from Last 3 Months or Most Recently Relevant to Health Maintenance Results * Creatinine with Estimated GFR (11/26/2023) EXT Creatinine 0.7 0.5 - 1.5 mg/dL [facility] Blood (Blood, Venous) us Tosha Leung APRN, C.N.P., D.N.P. LAB BLOOD ADD -ON Final Result [facility] [address] [place] [address] from Last 3 Months or Most Recently Relevant to Health Maintenance Additional Health Concerns Infection Onset Date Last Indicated Protective Environment 10/11/2022 3 Insurance MEDICARE MEDICA Care Teams Electrician Relationship Specialty Start Date End Date Elsewhere, Pcp PCP - General Internal Medicine 09/23/22
--- OUTSIDE RECORDS SUMMARY | 2024-05-24 13:40 | XMS_ITS | Clinical Summary ---
Author Organization [facility]calc [facility] Address [place], [place] [address] Care Team Providers Care Hydraulic Lift Driver Name Role Phone Sandra Slade MD Primary Care Provider [phone]- [phone] Allergies No known active allergies Medications Medication [...] Outcome GA Total Labor Labor/2nd/3rd Weight Sex Type Anes PTL Emperatriz A1 A5 Name Clin Para Para Last Filed Vital Signs Vital Sign Reading Time Taken Comments Blood Pressure 132/84 04/12/2008 2:58 PM CDT Pulse 72 04/12/2008 2:58 PM CDT Temperature 36.3 C (97.4 F) 04/12/2008 2:58 PM CDT Respiratory Rate - - Oxygen Saturation - - Inhaled Oxygen Concentration - - Weight 91.2 kg (201 lb) 04/12/2008 2:58 PM CDT Height 175.3 cm (5' 9) 06/17/2007 8:21 AM CUT OFF SAW OPERATOR METAL Body Mass Index 29.68 06/17/2007 8:21 AM CUT OFF SAW OPERATOR METAL Plan of Treatment Health Maintenance Due Date [...] PCV) 2021 COVID-19 vaccine series ( - 2023- season) 2024 Influenza for age 65+ 02/22/2024 04/12/2008, 007 Procedures Procedure Name Priority Date/Time Associated Diagnosis Comments XR MAMMO BILAT SCREEN FFDM (IA) Routine 06/29/2007 1:49 PM CUT OFF SAW OPERATOR METAL Screening Mammogram Other LIPID PANEL Routine 06/17/2007 9:41 AM CUT OFF SAW OPERATOR METAL Screening Lipid Disorders from Last 3 Months or Most Recently Relevant to Health Maintenance Results * XR MAMMO BILAT SCREEN FFDM (06/29/2007 1:49 PM CUT OFF SAW OPERATOR METAL) MAMMOGRAM ACR 3 Probably Benign Finding: Short interval F/U suggested Anatomical Region Laterality Modality BREASTS, Breast Left, Breast Right Bilateral Mammography 06/29/2007 1:49 PM CUT OFF SAW OPERATOR METAL Narrative 06/30/2007 1:16 PM CUT OFF SAW OPERATOR METAL SCREENING MAMMOGRAM CLINICAL HISTORY: Screening study. Comparison: None. FINDINGS: The breasts are heterogeneously density which may obscure small masses. Scattered benign-appearing calcifications noted bilaterally. No suspicious cluster seen. No areas of architectural distortion or dominant mass is identified. CONCLUSION: ACR 3 Probably Benign Findings: Short interval F/U suggested RECOMMENDATION: Bilateral mammogram in six months. NOTE: SHORT-TERM INTERVAL FOLLOW RECOMMENDED FOR DIFFUSE BILATERAL CALCIFICATIONS [...] * (ABNORMAL) LIPID PANEL (06/17/2007 9:41 AM CUT OFF SAW OPERATOR METAL) CHOLESTEROL,TOTAL 231(H) 110 - 199 mg/dL [facility] TRIGLYCERIDES 113 <150 mg/dL [facility] HDL CHOLESTEROL 54 >40 mg/dL [facility] CHOL/HDL RATIO 4.28 <4.51 [facility] LDL CHOLESTEROL 154(H) <131 mg/dL [facility] PATIENT STATUS Fasting [facility] Blood specimen (specimen) BLOOD SPECIMEN / Unknown 06/17/2007 9:41 AM CUT OFF SAW OPERATOR METAL 06/17/2007 9:36 AM CUT OFF SAW OPERATOR METAL Thanh Oconnell MD CHEMISTRY [facility] [address] [place] [address] from Last 3 Months or Most Recently Relevant to Health Maintenance Care Teams Hydraulic Lift Driver Relationship Specialty Start Date End Date Sandra Slade MD [address] [place] [address] PCP - General Internal Medicine 11/07/20
--- OUTSIDE RECORDS SUMMARY | 2024-05-24 13:40 | XMS_ITS | Clinical Summary ---
Author Organization [facility] Address [address] [place] [address] Care Team Providers Care Clay Worker Name Role Phone Elsewhere, Pcp Primary Care Provider Unavailabl e Source Comments Patient records contain information from all sites at [facility]. For routine questions regarding patient records, call [phone] during business hours, M-F 8:00 AM - 5:00 PM Central Time. Record requests for emergency care only can be directed to [phone] at any time.[facility] Allergies Active Allergy Reactions Criticality Noted Date [...] Department Care Team Description 05/10/2024 11:45 AM AGRICULTURAL EQUIPMENT TEST ENGINEER Clinical Communication Virtual Review in [place], [place] [address] [place] [phone] Pre-visit Intake 03/09/2024 Clinical Communication Division of Rheumatology in [place], [place] [address] [place] [phone] Tosha Leung, ADITHYA, C.N.P., D.N.P. from Last 3 Months Immunizations [...] Relation Name Status Comments Brother Manolo Finger Alive Father William Finger Alive Maternal Grandmother Susan Melendez Alive Mother Amanda Finger Alive Sister Vanessa Mann Alive Social History Tobacco Use Types Packs/Day Years Used Date Smoking Tobacco: Former Cigarettes 0.8 28 0 1971 - 04/23/2000 Passive Smoke Exposure: Never Smokeless Tobacco: Never Alcohol Use Standard Drinks/Week Comments Yes 2 (1 standard drink = 0.6 oz pur e alcohol) 2 drinks per week. [facility] Utilities Answer Date Recorded In the past 12 months has e [employer], gas, oil, or water [employer] threatened to shut off services in your [...] week 09/17/2022 How often do you attend [facility] or restorationist services? 1 to 4 times per year 09/17/2022 Do you belong to any clubs o r organizations such as anabaptist groups, unions, fraternal [...] and heating? Not hard at all 09/17/2022 [facility] [place] [employer] [facility] - Occupational Stress [...] your living situation today? I have a [facility] place to live 11/27/2023 Education Answer Date Recorded What is the highest level of school you have completed or the highest degree you have received? 12th grade 04/07/2020 Comments Unknown Sex and Gender Information Value Date Recorded Sex Assigned at Female 03/31/2021 8:17 PM CDT Legal Sex Female 5:00 PM AGRICULTURAL EQUIPMENT TEST ENGINEER Gender Identity Female 03/31/2021 8:17 PM CDT Sexual Orientation Straight 05/03/2020 5: 47 PM AGRICULTURAL EQUIPMENT TEST ENGINEER Last Filed Vital Signs Vital Sign [...] st Contact Info) Description 05/31/2024 10:30 AM AGRICULTURAL EQUIPMENT TEST ENGINEER Office Visit Division of Rheumatology in [place], [place] [address] [place] [phone] Tosha Leung APRN, C.N.P., D.N.P. [address] [place] [phone] 05/31/2024 1:00 PM AGRICULTURAL EQUIPMENT TEST ENGINEER Procedure visit Division of Rheumatology in [place], [place] [address] [place] [phone] Tosha Leung APRN, C.N.P., D.N.P. [address] [place] [phone] Health Maintenance Due Date Last Done Comments Bone Density Scan (Osteoporo sis Screen) 1956 CT Colonography 1956 Cologuard 1956 Colonoscopy 1956 Colorectal Cancer Surveillance 1956 Fasting Glucose for Diabetes Screening 1955 Mammogram 1956 Potassium Level 1956 Sodium Level 1956 Pneumococcal vaccine (65+ years) (3 of 3 - PPSV23 or PCV20) 01/20/2023 01/24/2022, 01/20/2018 Depression Screening (Annual PHQ-2) 2023 Fall Risk Screen (Annual) 2023 COVID-19 Vaccine (6 - 2023-2 5 season) 2024 03/21/2023, 03/14/2022, 02/13/2021, Additional history exists Influenza Vaccine (#1) 2024 3, 04/06/2022, 03/28/2021, Additional history exists Creatinine Level (Kidney Function Test) 11/25/2024 11/26/2023, 05/13/2023, 12/25/2022, Additional history exists DTaP,Tdap,and Td Vaccines (3 - Td or Tdap) 10/01/2032 10/01/2022, 04/23/2012 Zoster Vaccines Completed 12/08/2018, 01/20/2018 Hydroxychloroquine (PLAQUENI L) Baseline Exam Completed 10/04/2022 RSV vaccine - (32-3 6 weeks) or 60+ years Completed 05/21/2023 HPV Vaccines Aged Out No longer eligi ble based on patient's age to complete this topic IPV Vaccines Aged Out No longer eligi ble based on patient's age to complete this topic Medical Devices Implanted Type Area Household Cook Device Identifier Shelf Expiration Date Model / Serial / Lot Imaging Marker Imaging Marker Right: Breast Procedures Procedure Name Priority Date/Time Associated Diagnosis Comments CREATININE WITH EGFR, S/P Routine 11/26/2023 from Last 3 Months or Most Recently Relevant to Health Maintenance Results * Creatinine with Estimated GFR (11/26/2023) EXT Creatinine 0.7 0.5 - 1.5 mg/dL [facility] Blood (Blood, Venous) us Tosha Leung APRN, C.N.P., D.N.P. LAB BLOOD ADD -ON Final Result [facility] [address] [place], [place] [address] [phone] from Last 3 Months or Most Recently Relevant to Health Maintenance Additional Health Concerns Infection Onset Date Last Indicated Protective Environment 10/11/2022 3 Insurance MEDICARE MEDICA Care Teams Clay Worker Relationship Specialty Start Date End Date Elsewhere, Pcp PCP - General Internal Medicine 09/23/22
[2024-05-24 13:58] LABS: Basophils Absolute Auto 0.05 K/uL (0.00-0.30); Basophils Percent Auto 0.8 % (0.0-3.0); Eosinophils Absolute Auto 0.11 K/uL (0.00-0.50); Eosinophils Percent Auto 1.7 % (0.0-7.0); Hematocrit 41.4 % (33.0-51.0); Hemoglobin* 13.1 gm/dL (12.0-16.0); Immature Granulocytes Abs Auto 0.01 K/uL (0.00-0.30); Immature Granulocytes Pct Auto 0.2 %; Lymphocytes Absolute Auto 1.49 K/uL (0.90-2.90); Lymphocytes Percent Auto 22.9 % (20-44); Mean Corpuscular HGB Conc 32 gm/dL (32-36); Mean Corpuscular Hemoglobin 28 pg (26-34); Mean Corpuscular Volume 89 fL (80-100); Monocytes Percent Auto 10.8 % (0.0-11.0); Neutrophils Absolute Auto 4.14 K/uL (1.7-7.0); Neutrophils Percent Auto 63.6 % (42.0-72.0); Platelet Count* 239 K/uL (140-440); RDW Coefficient of Variation % 15.5 % (11.5-15.5); Red Blood Count 4.65 m/uL (4.00-5.20)
[2024-05-24 14:01] LABS: Slide Review Reflex No
[2024-05-24 14:10] LABS: Aspartate Amino Transferase* 25 U/L (12-35); Creatinine* 0.7 mg/dL (0.5-1.5); Estimated Glomerular Filt Rate 95 ml/min
[2024-05-24 14:13] LABS: C Reactive Protein* 1.1 mg/dL (0.5-1.0)
[2024-05-24 14:57] LABS: Erythrocyte SedimentationRate* 6 mm/hr (2-20)
== END 2024-05-24 13:34 | disposition home or self-care (01) ==
LOC: LAB 13:33
PROVIDERS: PCP Nurse Practitioner; Visit Provider Nurse Practitioner
DX: M06.9 Rheumatoid arthritis, unspecified (principal)
CPT/HCPCS: 36415; 82565; 84450; 85025; 85651; 86140

== ENCOUNTER 2024-07-30 08:50 | Outpatient (CLI) | payer MEDICARE, OTHER, SELFPAY | END 2024-07-30 08:51 | disposition home or self-care (01) | LOC: NFLDREF 08-06 02:28 | PROVIDERS: PCP Internal Medicine; Referring Provider Nurse Practitioner; Visit Provider Internal Medicine | DX: E78.5 Hyperlipidemia, unspecified (principal); I10 Essential (primary) hypertension | CPT/HCPCS: 80048; 80061 ==

== ENCOUNTER 2024-08-30 08:42 | Outpatient (CLI) | payer MEDICARE, OTHER, SELFPAY ==
[2024-08-30 09:42] LABS: Basophils Absolute Auto 0.06 K/uL (0.00-0.30); Basophils Percent Auto 0.8 % (0.0-3.0); Eosinophils Absolute Auto 0.27 K/uL (0.00-0.50); Eosinophils Percent Auto 3.6 % (0.0-7.0); Hematocrit 40.6 % (33.0-51.0); Hemoglobin* 12.8 gm/dL (12.0-16.0); Immature Granulocytes Abs Auto 0.03 K/uL (0.00-0.30); Immature Granulocytes Pct Auto 0.4 %; Lymphocytes Absolute Auto 1.67 K/uL (0.90-2.90); Lymphocytes Percent Auto 22.1 % (20-44); Mean Corpuscular HGB Conc 32 gm/dL (32-36); Mean Corpuscular Hemoglobin 28 pg (26-34); Mean Corpuscular Volume 90 fL (80-100); Monocytes Percent Auto 8.7 % (0.0-11.0); Neutrophils Absolute Auto 4.86 K/uL (1.7-7.0); Neutrophils Percent Auto 64.4 % (42.0-72.0); Platelet Count* 262 K/uL (140-440); RDW Coefficient of Variation % 15.2 % (11.5-15.5); Red Blood Count 4.51 m/uL (4.00-5.20); White Blood Count* 7.55 K/uL (4.50-11.00)
[2024-08-30 09:48] LABS: Alanine Aminotransferase* 22 U/L (4-35); Aspartate Amino Transferase* 20 U/L (12-35); Creatinine* 0.7 mg/dL (0.5-1.5); Estimated Glomerular Filt Rate 94 ml/min
[2024-08-30 09:58] LABS: Slide Review Reflex No
== END 2024-08-30 08:43 | disposition home or self-care (01) ==
LOC: NPINS 08:52
PROVIDERS: PCP Internal Medicine; Visit Provider Nurse Practitioner
DX: M06.9 Rheumatoid arthritis, unspecified (principal)
CPT/HCPCS: 82565; 84450; 84460; 85025

== ENCOUNTER 2024-11-05 12:38 | Outpatient (CLI) | payer MEDICARE, OTHER, SELFPAY ==
--- NOTE | 2024-11-05 13:00 | CRLHL7_ITS ---
For Patients: As a result of the Century Cures Act, medical imaging exams and procedure reports are released immediately into your electronic medical record. You may view this report before your referring provider. If you have questions, please contact your health care provider. INDICATION: BILATERAL SCREENING MAMMOGRAM, ASYMPTOMATIC 69 Y/O FEMALE COMPARISON: 11/04/2023, 10/14/2022, 10/11/2021 TECHNIQUE: Digital mammogram in CC and MLO projections including computer-aided detection (CAD) and tomosynthesis. BREAST COMPOSITION: The breasts are heterogeneously dense, which may obscure small masses. FINDINGS: No suspicious findings. ASSESSMENT: BI-RADS 2 Benign RECOMMENDATION: Annual screening mammogram. A lay language report of this examination will be provided to the patient. Dictated by: Manolo Castro MD @ 11/08/2024 09:01:21 (Electronically Signed)
== END 2024-11-05 12:39 | disposition home or self-care (01) ==
LOC: MAMMO 12:38
PROVIDERS: PCP Internal Medicine; Visit Provider Internal Medicine
DX: Z12.31 Encounter for screening mammogram for malignant neoplasm of breast (principal); R92.333 Mammographic heterogeneous density, bilateral breasts
CPT/HCPCS: 77063; 77067

== ENCOUNTER 2024-11-22 08:41 | Outpatient (CLI) | payer MEDICARE, OTHER, SELFPAY ==
[2024-11-22 09:36] LABS: Basophils Absolute Auto 0.06 K/uL (0.00-0.30); Eosinophils Percent Auto 1.7 % (0.0-7.0); Hematocrit 39.9 % (33.0-51.0); Hemoglobin* 12.5 gm/dL (12.0-16.0); Immature Granulocytes Abs Auto 0.01 K/uL (0.00-0.30); Immature Granulocytes Pct Auto 0.2 %; Lymphocytes Absolute Auto 1.33 K/uL (0.90-2.90); Lymphocytes Percent Auto 22.5 % (20-44); Mean Corpuscular HGB Conc 31 gm/dL (32-36); Mean Corpuscular Hemoglobin 28 pg (26-34); Mean Corpuscular Volume 91 fL (80-100); Monocytes Percent Auto 8.4 % (0.0-11.0); Neutrophils Absolute Auto 3.92 K/uL (1.7-7.0); Neutrophils Percent Auto 66.2 % (42.0-72.0); Platelet Count* 235 K/uL (140-440); RDW Coefficient of Variation % 15.2 % (11.5-15.5); White Blood Count* 5.92 K/uL (4.50-11.00)
[2024-11-22 09:46] LABS: Slide Review Reflex No
[2024-11-22 11:57] LABS: Creatinine* 0.8 mg/dL (0.5-1.5); Estimated Glomerular Filt Rate 80 ml/min
[2024-11-22 11:58] LABS: Alanine Aminotransferase* 27 U/L (4-35); Aspartate Amino Transferase* 26 U/L (12-35)
== END 2024-11-22 08:42 | disposition home or self-care (01) ==
LOC: NPINS 08:45
PROVIDERS: PCP Internal Medicine; Visit Provider Nurse Practitioner
DX: M06.9 Rheumatoid arthritis, unspecified (principal)
CPT/HCPCS: 82565; 84450; 84460; 85025

== ENCOUNTER 2025-06-13 07:57 | Outpatient (CLI) | payer MEDICARE, OTHER, SELFPAY ==
[2025-06-13 08:56] LABS: Hematocrit* 40.4 % (33.0-51.0); Hemoglobin* 13.0 gm/dL (12.0-16.0); Immature Granulocytes Abs Auto 0.03 K/uL (0.00-0.30); Immature Granulocytes Pct Auto 0.5 %; Mean Corpuscular HGB Conc 32 gm/dL (32-36); Mean Corpuscular Hemoglobin 28 pg (26-34); Mean Corpuscular Volume 88 fL (80-100); RDW Coefficient of Variation % 15.1 % (11.5-15.5); Red Blood Count* 4.60 m/uL (4.00-5.20); White Blood Count* 6.56 K/uL (4.50-11.00)
[2025-06-13 09:01] LABS: Lymphocytes Absolute Auto 1.20 K/uL (0.90-2.90); Slide Review Reflex No
[2025-06-13 09:04] LABS: Alanine Aminotransferase* 27 U/L (4-35); Aspartate Amino Transferase* 29 U/L (12-35); Creatinine* 0.7 mg/dL (0.5-1.5); Estimated Glomerular Filt Rate 94 ml/min
[2025-06-13 09:41] LABS: Erythrocyte SedimentationRate* 7 mm/hr (2-20)
== END 2025-06-13 07:58 | disposition home or self-care (01) ==
LOC: NPINS 07:58
PROVIDERS: PCP Internal Medicine; Visit Provider Nurse Practitioner
DX: M06.9 Rheumatoid arthritis, unspecified (principal)
CPT/HCPCS: 82565; 84450; 84460; 85025; 85651; 86140